=== PATIENT | female | born 1960 | race Caucasian/White ===

== ENCOUNTER → 2017-12-02 | Outpatient (CLI) | payer MEDICARE, OTHER ==
[~2017-12-02] MED LIST: AMLO5 PO; ANTIBIOTIC; Amlodipine Bes2.5 MG PO; CARV6.25 PO; CEPH500 PO; CHOL10002; CLOT10 SUSW; Carvedilol12.5 MG PO; DOCSEN PO; FAMO20 PO; FLUC200 PO; FOLI1 PO; HYDACE5325 PO; HYDR1TAB94 PO; IBUP600 PO; LEVSOD125 PO; LEVSOD150 PO; LIDO2L MM; MULVITMIND PO; MULVITMINE PO; MUPI2TO TOP; NITR100CA PO; Neurontin 300300 MG PO; Norco 5-325 Ta1 EACH PO; OXYACE5T PO; POTA20PAC; POTCHL20ER PO; SERT50 PO; SULTRIDS PO; SYNTHROID112 MCG PO; [UNRECOGNIZED DRUG - OTHER]
== END | disposition home or self-care (01) ==
LOC: LAB EV 12:13
DX: L08.9 Local infection of the skin and subcutaneous tissue, unspecified (principal)
CPT/HCPCS: 87070; 87077; 87147; 87186; 87205

== ENCOUNTER 2017-12-06 09:07 | Emergency (ER) | payer MEDICARE, OTHER ==
[~2017-12-06] VITALS: Ht 177.8 cm; Wt 67.6 kg
== END 2017-12-06 10:26 | disposition home or self-care (01) ==
LOC: ER 09:07
DX: Z43.1 Encounter for attention to gastrostomy (principal); Z88.1 Allergy status to other antibiotic agents; Z88.6 Allergy status to analgesic agent; Z88.0 Allergy status to penicillin; Z88.5 Allergy status to narcotic agent; Z88.8 Allergy status to other drugs, medicaments and biological substances; Z79.899 Other long term (current) drug therapy
CPT/HCPCS: 43760; 99283

== ENCOUNTER → 2018-03-27 | Outpatient (CLI) | payer MEDICARE, OTHER | LOC: LAB SHORT 11:14 → LAB EV 11:14 | DX: N39.0 Urinary tract infection, site not specified (principal) | CPT/HCPCS: 87077; 87086; 87186 ==

== ENCOUNTER 2019-02-15 09:53 | Emergency (ER) | payer MEDICARE, OTHER ==
[~2019-02-15] VITALS: Ht 177.8 cm; Wt 68.0 kg
[2019-02-15] MEDS ORDERED: LORTAB 10 MG-3473 ML PO (15:11)
== END 2019-02-15 15:30 | disposition home or self-care (01) ==
LOC: ER 09:53
DX: S93.401A Sprain of unspecified ligament of right ankle, initial encounter (principal); K94.23 Gastrostomy malfunction; Z88.1 Allergy status to other antibiotic agents; Z88.6 Allergy status to analgesic agent; Z88.0 Allergy status to penicillin; Z88.5 Allergy status to narcotic agent; Z88.8 Allergy status to other drugs, medicaments and biological substances; Z79.899 Other long term (current) drug therapy; Z85.41 Personal history of malignant neoplasm of cervix uteri; Z85.850 Personal history of malignant neoplasm of thyroid; Z87.891 Personal history of nicotine dependence; X58.XXXA Exposure to other specified factors, initial encounter
CPT/HCPCS: 29515; 49465; 73610; 99283-25; A9270-GY; L1906; Q9963

== ENCOUNTER → 2019-08-20 | Outpatient (CLI) | payer MEDICARE, OTHER ==
[~2019-08-20] MED LIST changes: +LORTAB 10 MG-3473 ML PO; +Macrobid 100 M100 MG PO; +PARO2SU; +Sulfamethoxazo1 EAC4 PO
[2019-08-20 11:51] LABS: Source, Urine Clean Catch
[2019-08-20 12:57] LABS: Bacteria Few /hpf; Mucus Mod (0-Heavy); Red Blood Cells, Urine 25-50 /hpf (0-2); Squamous Epithelial Cells Many /hpf (Few)
== END ==
LOC: LAB SHORT 11:50 → LAB EV 11:50
PROVIDERS: Student in an Organized Health Care Education/Training Program
DX: R31.21 Asymptomatic microscopic hematuria (principal)
CPT/HCPCS: 81015

== ENCOUNTER → 2019-09-18 | Outpatient (CLI) | payer MEDICARE, OTHER | END | disposition home or self-care (01) | LOC: LAB SHORT 10:51 → LAB EV 10:51 | DX: N39.0 Urinary tract infection, site not specified (principal) | CPT/HCPCS: 87086 ==

== ENCOUNTER 2019-09-25 09:39 | Emergency (ER) | payer MEDICARE, OTHER ==
[~2019-09-25] VITALS: Ht 177.8 cm; Wt 69.4 kg
[~2019-09-25 09:39] MED LIST changes: -Macrobid 100 M100 MG PO; -PARO2SU; -Sulfamethoxazo1 EAC4 PO
[2019-09-25] MEDS ORDERED: PARO2SU (09:56)
== END 2019-09-25 12:12 | disposition home or self-care (01) ==
LOC: ER 09:39
DX: K94.23 Gastrostomy malfunction (principal); Z88.1 Allergy status to other antibiotic agents; Z88.6 Allergy status to analgesic agent; Z88.8 Allergy status to other drugs, medicaments and biological substances; Z88.0 Allergy status to penicillin; Z88.5 Allergy status to narcotic agent; Z79.899 Other long term (current) drug therapy
CPT/HCPCS: 43762; 49465; 99283-25; Q9963

== ENCOUNTER → 2019-10-02 | Outpatient (CLI) | payer MEDICARE, OTHER ==
[~2019-10-02] MED LIST changes: +Macrobid 100 M100 MG PO; +PARO2SU; +Sulfamethoxazo1 EAC4 PO
[2019-10-04 14:07] LABS: HPV 16 Negative (Negative); HPV 18 Negative (Negative); HPV OTHER HR TYPES Negative (Negative)
== END ==
LOC: LAB 16:35 → LAB SHORT 16:35
PROVIDERS: Student in an Organized Health Care Education/Training Program
DX: Z01.419 Encounter for gynecological examination (general) (routine) without abnormal findings (principal)
CPT/HCPCS: 87624; G0145

== ENCOUNTER 2019-10-08 09:37 | Emergency (ER) | payer MEDICARE, OTHER ==
[~2019-10-08] VITALS: Ht 177.8 cm; Wt 68.0 kg
[~2019-10-08 09:37] MED LIST changes: -Macrobid 100 M100 MG PO; -Sulfamethoxazo1 EAC4 PO
[2019-10-08] MEDS ORDERED: Sulfamethoxazo1 EAC4 PO (10:09)
[2019-10-08] MEDS ORDERED: Macrobid 100 M100 MG PO (10:23)
== END 2019-10-08 10:57 | disposition home or self-care (01) ==
LOC: ER 09:37
DX: N39.0 Urinary tract infection, site not specified (principal); Z16.29 Resistance to other single specified antibiotic; Z88.1 Allergy status to other antibiotic agents; Z88.6 Allergy status to analgesic agent; Z88.8 Allergy status to other drugs, medicaments and biological substances; Z88.0 Allergy status to penicillin; Z88.5 Allergy status to narcotic agent; Z79.899 Other long term (current) drug therapy; Z86.73 Personal history of transient ischemic attack (TIA), and cerebral infarction without residual deficits; Z87.891 Personal history of nicotine dependence
CPT/HCPCS: 99282

== ENCOUNTER → 2019-10-11 | Outpatient (CLI) | payer MEDICARE, OTHER ==
[~2019-10-11] MED LIST changes: +Macrobid 100 M100 MG PO; +Sulfamethoxazo1 EAC4 PO
== END | disposition home or self-care (01) ==
LOC: LAB SHORT 11:50 → LAB EV 11:50
DX: N39.0 Urinary tract infection, site not specified (principal)
CPT/HCPCS: 87077; 87086; 87186

== ENCOUNTER 2019-11-20 10:37 | Emergency (ER) | payer MEDICARE, OTHER ==
[~2019-11-20] VITALS: Ht 177.8 cm; Wt 68.0 kg
[2019-11-20] MEDS ORDERED: OXYB5 PO (11:36)
[2019-11-20] MEDS ORDERED: CONEST.625 (11:37)
[2019-11-20] MEDS ORDERED: POTA10T (11:37)
== END 2019-11-20 14:57 | disposition home or self-care (01) ==
LOC: ER 10:37
DX: R10.9 Unspecified abdominal pain (principal); Z88.0 Allergy status to penicillin; Z88.5 Allergy status to narcotic agent; Z79.899 Other long term (current) drug therapy; Z87.891 Personal history of nicotine dependence
CPT/HCPCS: 49465; Q9963

== ENCOUNTER 2020-02-07 14:20 | Emergency (ER) | payer MEDICARE, OTHER ==
[~2020-02-07] VITALS: Ht 177.8 cm; Wt 68.0 kg
[~2020-02-07 14:20] MED LIST changes: +CONEST.625; +OXYB5 PO; +POTA10T
== END 2020-02-07 17:44 | disposition home or self-care (01) ==
LOC: ER 14:20
DX: Z43.1 Encounter for attention to gastrostomy (principal); M79.7 Fibromyalgia; Z88.0 Allergy status to penicillin; Z88.1 Allergy status to other antibiotic agents; Z88.6 Allergy status to analgesic agent; Z88.5 Allergy status to narcotic agent; Z88.8 Allergy status to other drugs, medicaments and biological substances; Z79.899 Other long term (current) drug therapy
CPT/HCPCS: 43762; 74018; 99283-25

== ENCOUNTER 2020-02-08 09:46 | Emergency (ER) | payer MEDICARE, OTHER ==
[~2020-02-08] VITALS: Ht 177.8 cm; Wt 68.0 kg
== END 2020-02-08 11:54 | disposition home or self-care (01) ==
LOC: ER 09:46
DX: Z43.1 Encounter for attention to gastrostomy (principal); Z88.0 Allergy status to penicillin; Z88.1 Allergy status to other antibiotic agents; Z88.6 Allergy status to analgesic agent; Z88.5 Allergy status to narcotic agent; Z88.8 Allergy status to other drugs, medicaments and biological substances; Z79.899 Other long term (current) drug therapy; Z87.891 Personal history of nicotine dependence; Z93.1 Gastrostomy status
CPT/HCPCS: 43762; 49465; 99283-25; Q9963

== ENCOUNTER 2020-02-15 09:35 | Observation (INO) | payer MEDICARE, OTHER ==
[~2020-02-15] VITALS: Ht 177.8 cm; Wt 68.0 kg
[~2020-02-15 09:35] MED LIST changes: +LEVSOD150 PT; -OXYB5 PO; +OXYB5 PT
[2020-02-15] MEDS ORDERED: POTA20PAC PT (11:47)
[2020-02-15 12:06] LABS: BASOPHILS ABSOLUTE AUTO 0.01 K/mm3 (0.00-0.23); BASOPHILS PERCENT AUTO 0 % (0-2); EOSINOPHILS ABSOLUTE AUTO 0.06 K/mm3 (0.00-0.68); EOSINOPHILS PERCENT AUTO 1 % (0-6); Hematocrit 43.6 % (33.0-51.0); Hemoglobin 14.2 g/dL (11.5-16.0); IMMATURE GRAN ABSOLUTE AUTO 0.01 K/mm3 (0.00-0.10); IMMATURE GRAN PERCENT AUTO 0 % (0-1); LYMPHOCYTES PERCENT AUTO 37 % (21-46); MONOCYTES ABSOLUTE AUTO 0.42 K/mm3 (0.16-1.47); MONOCYTES PERCENT AUTO 9 % (4-13); Mean Corpuscular HGB 29.4 pg (26.0-34.0); Mean Corpuscular HGB Conc 32.6 g/dL (31.5-36.5); Mean Corpuscular Volume 90 fL (80-100); Mean Platelet Volume 11.5 fL (9.1-12.4); NEUTROPHILS ABSOLUTE AUTO 2.36 K/mm3 (1.96-9.15); NEUTROPHILS PERCENT AUTO 52 % (41-73); Platelet Count 158 K/mm3 (150-400); RDW Coefficient Variation 12.7 % (11.7-14.2); RDW Standard Deviation 41.1 fL (35.1-46.3); Red Blood Cell Count 4.83 M/mm3 (3.80-5.20); White Blood Cell Count 4.56 K/mm3 (4.00-11.30)
[2020-02-15] MEDS ORDERED: PARO2SU PT (12:19)
[2020-02-15 12:21] LABS: Anion Gap 6 mmol/L (6-16); Blood Urea Nitrogen 14 mg/dL (8-24); Bun/Creatinine Ratio 21.1 (12.0-20.0); CO2, Blood 27 mmol/L (21-32); Calcium, Blood 8.5 mg/dL (8.5-10.1); Chloride, Blood 107 mmol/L (98-108); Creatinine, Blood 0.67 mg/dL (0.40-1.00); Glomerular Filtration Rate >60 (60-); Glucose, Blood 78 mg/dL (70-99); Sodium, Blood 140 mmol/L (136-145)
[2020-02-15 12:51] LABS: International Normalized Ratio 1.01; Prothrombin Time Results 10.8 Sec (9.7-11.5)
--- NOTE | 2020-02-15 15:00 | NUR ---
1405 arrived to room PT COOPERATIVE, FOLLOWS DIRECTIONS, ORIENTED TO PERSON ONLY. ANSWERSMOST QUESTIONS WITH "YES" OR "OK". STOOD TO TRANSFERFROM GURNEY TO BED AND STEADY ON FEET. PT UNABLE TO PROVIDE ADMISSION HISTORY, SIGN BLOOD CONSENT, TELL ME HER ALLERGIES OR MEDICATIONS. BED ALARM ACTIVATED, PT HOLDING CALL LIGHT AND WATCHING TV
--- NOTE | 2020-02-15 15:45 | NUR ---
TO DAY SURGERY PER CART. DAY SURGERY HENRY GALE IS AWARE OF PATIENTS TBI AND THAT PATIENT DOES NOT HAVE SIGNED BLOOD CONSENT OR SURGICAL CONSENT
--- NOTE | 2020-02-15 16:02 | NUR ---
PT TRANSFERED TO [facility]IA [facility]. History, Chart, Medications and Allergies reviewed before start of procedure. Lungs clear T/O to Auscultation. Patient confirms NPO status and agrees with scheduled surgery.
--- NOTE | 2020-02-15 16:29 | NUR ---
02/15/20 1629 MAMIE CASTELLANO History, Chart, Medications and Allergies reviewed before start of procedure. 3-LEAD EKG REVIEWED WITH PHYSICIAN PRIOR TO START OF PROCEDURE. O2 VIA N/C INTACT THROUGHOUT SEDATION/PROCEDURE. MONITOR INTACT WITH CONTINUOUS PULSE OXIMETRY AND INTERMITTENT BP. MAC WITH DR. QUAN.
--- NOTE | 2020-02-15 17:08 | NUR ---
RETURN TO ROOM. PT SLEEPY AWAKENS WHEN TALKED TO, ANSWERING QUESTIONS WITH A FEW WORD RESPONSE. PT GRIMACING WHEN MOVED OR COUGHED. G TUBE IN PLACE TO LUQ WITH GAUZE DRESSING DRY AND INTACT
--- NOTE | 2020-02-15 18:03 | NUR ---
SUMMARY PT RESTING IN BED SINCE RETURN TO ROOM, CALM AND COOPERATIVE. G TUBE IN PLACE WITH DRESSING DRY AND INTACT. PT INCONTINENT OF URINE THOUGH HAD DENIED NEED TO USE RESTROOM.
--- NOTE | 2020-02-16 06:27 | NUR ---
SHIFT SUMMARY PT HAS BEEN ALERT WHILE AWAKE AND RESPONDS TO VERBAL STIMULI. RESPONDS TO YES/NO QUESTIONS BUT HAS DIFFICULTY COMMUNICATING/SPEAKING. PT WAS MEDICATED FOR PAIN DURING THE NIGHT AND TOLERATED WELL. PT HAS BEEN REPOSITIONED AND HAD ATTENS CHANGED PRN. NO ACUTE CHANGES OVERNIGHT. WCTM.
[2020-02-16] MEDS ORDERED: Macrodantin50 MG PO (10:57)
[2020-02-16] MEDS ORDERED: PREMARIN TOP (11:02)
--- NOTE | 2020-02-16 12:16 | NUR ---
PLAN FOR PT TO DISCHARGE HOME TODAY IF OK WITH DR. SAM. PT'S CONTACTED REGARDING HOME NUTRITION ROUTINE. HE REPORTS PT USES JEVITY 2 AT HOME. SHE HAS 2 CONTAINTERS OF JEVITY 2 IN THE MORNING AND 1 IN THE EVENING. HE ALSO REPORTS SHE HAS 2 [place] PUMP BAGS OF WATER PER DAY, ONE IN THE MORNING AND ONE IN THE EVENING.
--- NOTE | 2020-02-16 16:12 | NUR ---
DISCHARGE PT AND HER WERE PROVIDED WITH WRITTEN AND VERBAL DISCHARGE INSTRUCTIONS, THEY REPORTED UNDERSTANDING. SCANT BLEEDING PRESENT AROUND PEG TUBE PLACEMENT SITE, DR SAM AWARE AND VERBALIZED OK WITH DISCHARGE. PT HAD DISCOMFORT AT TIME OF DISCHARGE BUT DECLINED NEED FOR PAIN MEDICATION. PT WAS ABLE TO TOLERATE 1/2 OF HER ROUTINE MORNING FEEDING WITHOUT NAUSEA OR DIFFICULTY. PT ESCORTED OUT IN W/C AND ASSISTED INTO THE TRUCK WITH HER . PT'S SIGNED HER DISCHARGE FORMS. EDUCATED TO CALL IF THEY HAD ANY CONCERNS.
== END 2020-02-16 15:00 | disposition home or self-care (01) ==
LOC: ER 09:35 → SURS 09:36
PROVIDERS: Emergency Medicine; ADMIT Internal Medicine Gastroenterology
DX: E46 Unspecified protein-calorie malnutrition (principal); I10 Essential (primary) hypertension; F41.9 Anxiety disorder, unspecified; F32.9 Major depressive disorder, single episode, unspecified; Z88.6 Allergy status to analgesic agent; Z88.5 Allergy status to narcotic agent; Z88.8 Allergy status to other drugs, medicaments and biological substances; Z88.1 Allergy status to other antibiotic agents; Z86.73 Personal history of transient ischemic attack (TIA), and cerebral infarction without residual deficits; Z79.899 Other long term (current) drug therapy
CPT/HCPCS: 36415; 43762; 80048; 85025; 85610; 85730; 96360-59; 96361; 96361-59; 96374; 96376; 99284-25; C1769; G0378; J2250; J2704; J3010; J3480; J7120

== ENCOUNTER → 2020-07-31 | Outpatient (CLI) | payer MEDICARE, OTHER ==
[~2020-07-31] MED LIST changes: +Macrodantin50 MG PO; +PARO2SU PT; +POTA20PAC PT; +PREMARIN TOP; +Toprol Xl25 MG PO
== END | disposition home or self-care (01) ==
LOC: LAB EV 15:25 → LAB SHORT 15:25
DX: R30.0 Dysuria (principal)
CPT/HCPCS: 87077; 87086; 87186

== ENCOUNTER 2020-08-26 05:15 | Emergency (ER) | payer MEDICARE, OTHER ==
[~2020-08-26] VITALS: Ht 157.5 cm; Wt 63.5 kg
[~2020-08-26 05:15] MED LIST changes: -Toprol Xl25 MG PO
[2020-08-26 05:32] LABS: BASOPHILS ABSOLUTE AUTO 0.02 K/mm3 (0.00-0.23); BASOPHILS PERCENT AUTO 0 % (0-2); EOSINOPHILS ABSOLUTE AUTO 0.04 K/mm3 (0.00-0.68); EOSINOPHILS PERCENT AUTO 1 % (0-6); Hemoglobin 14.6 g/dL (11.5-16.0); IMMATURE GRAN ABSOLUTE AUTO 0.19 K/mm3 (0.00-0.10); IMMATURE GRAN PERCENT AUTO 3 % (0-1); LYMPHOCYTES ABSOLUTE AUTO 2.97 K/mm3 (0.84-5.20); LYMPHOCYTES PERCENT AUTO 48 % (21-46); MONOCYTES ABSOLUTE AUTO 0.41 K/mm3 (0.16-1.47); MONOCYTES PERCENT AUTO 7 % (4-13); Mean Corpuscular HGB 29.6 pg (26.0-34.0); Mean Corpuscular HGB Conc 32.4 g/dL (31.5-36.5); Mean Corpuscular Volume 91 fL (80-100); Mean Platelet Volume 12.6 fL (9.1-12.4); NEUTROPHILS ABSOLUTE AUTO 2.62 K/mm3 (1.96-9.15); NEUTROPHILS PERCENT AUTO 42 % (41-73); Platelet Count 134 K/mm3 (150-400); RDW Coefficient Variation 13.5 % (11.7-14.2); Red Blood Cell Count 4.93 M/mm3 (3.80-5.20); White Blood Cell Count 6.25 K/mm3 (4.00-11.30)
[2020-08-26 05:43] LABS: Source, Urine Catheter
[2020-08-26] MEDS ORDERED: HYDR1TAB94 PO (05:43)
[2020-08-26 05:48] LABS: Appearance, Urine Hazy (Clear); Bilirubin, Urine Neg (Neg); Blood, Urine 5+ (Neg); Color, Urine Yellow (P-Yellow); Glucose Qualitative, Urine Neg (Neg); Ketones, Urine 1+ (Neg); Leukocyte Esterase, Urine 1+ (Neg); Nitrite, Urine Neg (Neg); Protein, Urine 3+ (Neg); Urobilinogen, Urine 1+ (Normal)
[2020-08-26 05:52] LABS: Alanine Aminotransfer (ALT/SGP 62 U/L (12-78); Albumin, Blood 3.6 g/dL (3.4-5.0); Albumin/Globulin Ratio 0.8 (0.8-1.8); Alk Phos 84 U/L (50-136); Anion Gap 10 mmol/L (6-16); Aspartate Aminotrans (AST/SGOT 54 U/L (12-37); Bilirubin, Total 0.5 mg/dL (0.1-1.0); Blood Urea Nitrogen 33 mg/dL (8-24); Bun/Creatinine Ratio 46.2 (12.0-20.0); CO2, Blood 26 mmol/L (21-32); Calcium, Blood 9.4 mg/dL (8.5-10.1); Chloride, Blood 108 mmol/L (98-108); Creatinine, Blood 0.71 mg/dL (0.40-1.00); Globulin, Blood 4.5 g/dL (2.2-4.0); Glomerular Filtration Rate >60 (60-); Glucose, Blood 111 mg/dL (70-99); Magnesium, Blood 2.3 mg/dL (1.6-2.4); Potassium, Blood 3.6 mmol/L (3.5-5.5); Sodium, Blood 144 mmol/L (136-145); Total Protein, Blood 8.1 g/dL (6.4-8.2)
[2020-08-26 05:59] LABS: Bacteria Few /hpf; Hyaline Casts 0-2 /lpf (0-2); Squamous Epithelial Cells Few /hpf (Few)
[2020-08-26 06:06] LABS: U Amphetamine Screen Not Detected; U Barbituate Screen Not Detected; U Benzodiazapine Screen Not Detected; U Buprenorphine Screen Not Detected; U Cannabinoids Screen Not Detected; U Cocaine Screen Not Detected; U Methadone Screen Not Detected; U Methamphetamine Screen Not Detected; U Opiates Screen DETECTED; U Oxycodone Screen Not Detected; U Phencyclidine Screen Not Detected; U Propoxyphene Screen Not Detected
[2020-08-26 06:35] LABS: Influenza A, PCR Negative (NEGATIVE); Influenza B, PCR Negative (NEGATIVE); Resp Syncytial Virus, PCR Negative (NEGATIVE); SARS-Cov-2 (COVID-19) PCR, MMC Negative (NEGATIVE)
[2020-08-26 06:38] LABS: Troponin I <0.015 ng/mL (0.000-0.040)
[2020-08-26 06:41] LABS: Thyroid Stimulating Hormone 0.041 uIU/mL (0.360-4.800)
[2020-08-26] MEDS ORDERED: Toprol Xl25 MG PO (09:44)
== END 2020-08-26 11:03 | disposition home or self-care (01) ==
LOC: ER 05:15
PROVIDERS: Emergency Medicine
DX: R56.9 Unspecified convulsions (principal); R10.13 Epigastric pain; Z87.820 Personal history of traumatic brain injury; Z88.0 Allergy status to penicillin; Z88.5 Allergy status to narcotic agent; Z88.8 Allergy status to other drugs, medicaments and biological substances; Z88.6 Allergy status to analgesic agent; Z79.899 Other long term (current) drug therapy; Z87.891 Personal history of nicotine dependence
CPT/HCPCS: 0241U; 36415; 70450; 71045; 80053; 81001; 83735; 84443; 84484; 85025; 87086; 93005; 93010; 96374; 96375; 99285-25; J7030; P9612

== ENCOUNTER 2020-08-29 14:54 | Emergency (ER) | payer MEDICARE, OTHER ==
[~2020-08-29] VITALS: Ht 167.6 cm; Wt 65.8 kg
[~2020-08-29 14:54] MED LIST changes: +Toprol Xl25 MG PO
[2020-08-29 16:50] LABS: Alanine Aminotransfer (ALT/SGP 57 U/L (12-78); Albumin, Blood 3.8 g/dL (3.4-5.0); Albumin/Globulin Ratio 0.8 (0.8-1.8); Alk Phos 77 U/L (50-136); Anion Gap 6 mmol/L (6-16); Aspartate Aminotrans (AST/SGOT 45 U/L (12-37); Bilirubin, Total 0.6 mg/dL (0.1-1.0); Blood Urea Nitrogen 19 mg/dL (8-24); Bun/Creatinine Ratio 29.4 (12.0-20.0); CO2, Blood 32 mmol/L (21-32); Calcium, Blood 9.8 mg/dL (8.5-10.1); Chloride, Blood 103 mmol/L (98-108); Creatinine, Blood 0.65 mg/dL (0.40-1.00); Globulin, Blood 4.9 g/dL (2.2-4.0); Glomerular Filtration Rate >60 (60-); Glucose, Blood 105 mg/dL (70-99); Potassium, Blood 3.9 mmol/L (3.5-5.5); Sodium, Blood 141 mmol/L (136-145); Total Protein, Blood 8.7 g/dL (6.4-8.2)
[2020-08-29 17:10] LABS: BASOPHILS ABSOLUTE AUTO 0.01 K/mm3 (0.00-0.23); BASOPHILS PERCENT AUTO 0 % (0-2); EOSINOPHILS ABSOLUTE AUTO 0.02 K/mm3 (0.00-0.68); EOSINOPHILS PERCENT AUTO 0 % (0-6); Hematocrit 38.2 % (33.0-51.0); Hemoglobin 12.5 g/dL (11.5-16.0); IMMATURE GRAN ABSOLUTE AUTO 0.01 K/mm3 (0.00-0.10); IMMATURE GRAN PERCENT AUTO 0 % (0-1); LYMPHOCYTES ABSOLUTE AUTO 0.98 K/mm3 (0.84-5.20); LYMPHOCYTES PERCENT AUTO 17 % (21-46); MONOCYTES ABSOLUTE AUTO 0.55 K/mm3 (0.16-1.47); MONOCYTES PERCENT AUTO 9 % (4-13); Mean Corpuscular HGB 29.5 pg (26.0-34.0); Mean Corpuscular HGB Conc 32.7 g/dL (31.5-36.5); Mean Corpuscular Volume 90 fL (80-100); Mean Platelet Volume 12.7 fL (9.1-12.4); NEUTROPHILS ABSOLUTE AUTO 4.37 K/mm3 (1.96-9.15); NEUTROPHILS PERCENT AUTO 74 % (41-73); Platelet Count 104 K/mm3 (150-400); RDW Coefficient Variation 13.7 % (11.7-14.2); RDW Standard Deviation 44.3 fL (35.1-46.3); Red Blood Cell Count 4.24 M/mm3 (3.80-5.20); White Blood Cell Count 5.94 K/mm3 (4.00-11.30)
== END 2020-08-29 20:21 | disposition home or self-care (01) ==
LOC: ER 14:54
PROVIDERS: Physician Assistant
DX: R10.11 Right upper quadrant pain (principal); Z88.6 Allergy status to analgesic agent; Z88.1 Allergy status to other antibiotic agents; Z88.0 Allergy status to penicillin; Z88.5 Allergy status to narcotic agent; Z88.8 Allergy status to other drugs, medicaments and biological substances; Z79.899 Other long term (current) drug therapy; Z87.891 Personal history of nicotine dependence
CPT/HCPCS: 36415; 74177; 80053; 85025; 96374; 99284-25; J2405; Q9967

== ENCOUNTER → 2020-09-16 | Outpatient (CLI) | payer MEDICARE, OTHER ==
[~2020-09-16] MED LIST changes: +CONSTULOSE10 GM/155 PO; +CYCLOBENZAPRINE5 MG PO; +KEPPRA250 M1 PO; +LEVE500 PO; +LEVETIRACETAM PO; -LEVSOD150 PT; +LISINOPRIL2.5 MG PO; +METO25 PO; +METOPROLOL SUCC25 MG PO; +MIRALAX17 GM PO; +Mirtazapine15 M1 SL; +OXYB5 PO; +OXYC10TA19 PO; +POTA10T PO; +POTA20LUD PO; +TAMSULOSIN HCL0.4 M1 PO
== END | disposition home or self-care (01) ==
LOC: PLD 07:47 → LAB SHORT 07:47
DX: D22.5 Melanocytic nevi of trunk (principal)
CPT/HCPCS: 88305

== ENCOUNTER → 2020-10-09 | Outpatient (CLI) | payer MEDICARE, OTHER ==
[2020-10-09 15:58] LABS: Source, Urine Clean Catch
[2020-10-09 16:44] LABS: Appearance, Urine Clear (Clear); Blood, Urine Neg (Neg); Color, Urine Amber (P-Yellow); Glucose Qualitative, Urine Neg (Neg); Ketones, Urine 1+ (Neg); Leukocyte Esterase, Urine 1+ (Neg); Nitrite, Urine Neg (Neg); Protein, Urine 1+ (Neg); Specific Gravity, Urine 1.025 (1.003-1.022); Urobilinogen, Urine 2+ (Normal)
[2020-10-09 16:54] LABS: Bilirubin, Urine 1+ (Neg)
[2020-10-09 16:55] LABS: Bacteria Mod /hpf; Mucus Heavy (0-Heavy); Red Blood Cells, Urine 0-2 /hpf (0-2); Squamous Epithelial Cells Many /hpf (Few)
== END | disposition home or self-care (01) ==
LOC: PLD 15:54 → LAB SHORT 15:54
PROVIDERS: Student in an Organized Health Care Education/Training Program
DX: R30.9 Painful micturition, unspecified (principal)
CPT/HCPCS: 81001; 87086

== ENCOUNTER 2020-10-31 22:58 | Emergency (ER) | payer MEDICARE, OTHER ==
[~2020-10-31] VITALS: Ht 167.6 cm; Wt 68.0 kg
[~2020-10-31 22:58] MED LIST changes: -CONSTULOSE10 GM/155 PO; -CYCLOBENZAPRINE5 MG PO; -KEPPRA250 M1 PO; -LEVE500 PO; -LEVETIRACETAM PO; -LISINOPRIL2.5 MG PO; -METO25 PO; -METOPROLOL SUCC25 MG PO; -MIRALAX17 GM PO; -Mirtazapine15 M1 SL; -OXYB5 PO; -OXYC10TA19 PO; -POTA10T PO; -POTA20LUD PO; -TAMSULOSIN HCL0.4 M1 PO
[2020-10-31 23:42] LABS: BASOPHILS ABSOLUTE AUTO 0.01 K/mm3 (0.00-0.23); BASOPHILS PERCENT AUTO 0 % (0-2); EOSINOPHILS ABSOLUTE AUTO 0.04 K/mm3 (0.00-0.68); EOSINOPHILS PERCENT AUTO 1 % (0-6); Hematocrit 38.9 % (33.0-51.0); Hemoglobin 12.9 g/dL (11.5-16.0); IMMATURE GRAN ABSOLUTE AUTO 0.02 K/mm3 (0.00-0.10); IMMATURE GRAN PERCENT AUTO 0 % (0-1); LYMPHOCYTES ABSOLUTE AUTO 0.81 K/mm3 (0.84-5.20); LYMPHOCYTES PERCENT AUTO 10 % (21-46); MONOCYTES ABSOLUTE AUTO 0.65 K/mm3 (0.16-1.47); MONOCYTES PERCENT AUTO 8 % (4-13); Mean Corpuscular HGB 28.9 pg (26.0-34.0); Mean Corpuscular HGB Conc 33.2 g/dL (31.5-36.5); Mean Corpuscular Volume 87 fL (80-100); Mean Platelet Volume 11.4 fL (9.1-12.4); NEUTROPHILS ABSOLUTE AUTO 6.42 K/mm3 (1.96-9.15); NEUTROPHILS PERCENT AUTO 81 % (41-73); Platelet Count 182 K/mm3 (150-400); RDW Coefficient Variation 13.3 % (11.7-14.2); RDW Standard Deviation 41.3 fL (35.1-46.3); Red Blood Cell Count 4.46 M/mm3 (3.80-5.20); White Blood Cell Count 7.95 K/mm3 (4.00-11.30)
[2020-10-31 23:56] LABS: Alanine Aminotransfer (ALT/SGP 43 U/L (12-78); Albumin, Blood 2.9 g/dL (3.4-5.0); Albumin/Globulin Ratio 0.7 (0.8-1.8); Alk Phos 68 U/L (50-136); Anion Gap 7 mmol/L (6-16); Aspartate Aminotrans (AST/SGOT 44 U/L (12-37); Bilirubin, Total 0.6 mg/dL (0.1-1.0); Blood Urea Nitrogen 20 mg/dL (8-24); Bun/Creatinine Ratio 35.2 (12.0-20.0); CO2, Blood 24 mmol/L (21-32); Calcium, Blood 8.5 mg/dL (8.5-10.1); Chloride, Blood 113 mmol/L (98-108); Creatinine, Blood 0.57 mg/dL (0.40-1.00); Glomerular Filtration Rate >60 (60-); Glucose, Blood 83 mg/dL (70-99); Magnesium, Blood 1.7 mg/dL (1.6-2.4); Potassium, Blood 3.8 mmol/L (3.5-5.5); Sodium, Blood 144 mmol/L (136-145); Total Protein, Blood 6.9 g/dL (6.4-8.2); Troponin I <0.015 ng/mL (0.000-0.040)
[2020-11-01] MEDS ORDERED: LEVE500 PO (00:22)
== END 2020-11-01 02:28 | disposition home or self-care (01) ==
LOC: ER 22:58
PROVIDERS: Emergency Medicine
DX: R56.9 Unspecified convulsions (principal); I10 Essential (primary) hypertension; Z79.899 Other long term (current) drug therapy; Z87.828 Personal history of other (healed) physical injury and trauma; Z88.1 Allergy status to other antibiotic agents; Z88.6 Allergy status to analgesic agent; Z88.0 Allergy status to penicillin; Z88.5 Allergy status to narcotic agent; Z87.891 Personal history of nicotine dependence
CPT/HCPCS: 36415; 80053; 83735; 84484; 85025; 93005; 93010; 96374; 96375; 99284-25; J1953; J2060

== ENCOUNTER 2020-11-01 13:13 | Inpatient (IN) | payer MEDICARE, OTHER ==
[~2020-11-01] VITALS: Ht 162.6 cm; Wt 65.1 kg
[~2020-11-01 13:13] MED LIST changes: +LEVE500 PO
[2020-11-01 20:41] LABS: Albumin, Blood 2.9 g/dL (3.4-5.0); Anion Gap 6 mmol/L (6-16); Blood Urea Nitrogen 16 mg/dL (8-24); CO2, Blood 28 mmol/L (21-32); Calcium, Blood 9.2 mg/dL (8.5-10.1); Chloride, Blood 110 mmol/L (98-108); Creatinine, Blood 0.57 mg/dL (0.40-1.00); Glomerular Filtration Rate >60 (60-); Glucose, Blood 82 mg/dL (70-99); Phosphorus, Blood 4.1 mg/dL (2.5-4.9); Potassium, Blood 4.1 mmol/L (3.5-5.5); Sodium, Blood 144 mmol/L (136-145)
[2020-11-01 20:54] LABS: BASOPHILS ABSOLUTE AUTO 0.01 K/mm3 (0.00-0.23); BASOPHILS PERCENT AUTO 0 % (0-2); EOSINOPHILS ABSOLUTE AUTO 0.01 K/mm3 (0.00-0.68); EOSINOPHILS PERCENT AUTO 0 % (0-6); Hematocrit 37.5 % (33.0-51.0); Hemoglobin 12.2 g/dL (11.5-16.0); IMMATURE GRAN ABSOLUTE AUTO 0.01 K/mm3 (0.00-0.10); IMMATURE GRAN PERCENT AUTO 0 % (0-1); LYMPHOCYTES ABSOLUTE AUTO 0.72 K/mm3 (0.84-5.20); LYMPHOCYTES PERCENT AUTO 16 % (21-46); MONOCYTES ABSOLUTE AUTO 0.29 K/mm3 (0.16-1.47); MONOCYTES PERCENT AUTO 6 % (4-13); Mean Corpuscular HGB 28.8 pg (26.0-34.0); Mean Corpuscular HGB Conc 32.5 g/dL (31.5-36.5); Mean Corpuscular Volume 88 fL (80-100); Mean Platelet Volume 11.6 fL (9.1-12.4); NEUTROPHILS ABSOLUTE AUTO 3.57 K/mm3 (1.96-9.15); NEUTROPHILS PERCENT AUTO 78 % (41-73); Platelet Count 170 K/mm3 (150-400); RDW Coefficient Variation 13.6 % (11.7-14.2); RDW Standard Deviation 43.2 fL (35.1-46.3); Red Blood Cell Count 4.24 M/mm3 (3.80-5.20); White Blood Cell Count 4.61 K/mm3 (4.00-11.30)
--- NOTE | 2020-11-02 04:52 | NUR ---
SHIFT SUMMARY PT ER ADMIT THIS SHIFT FOR SEIZURE, POST GROUND LEVEL FALL AT HOME. PT SUSTAINED BRUISED RIBS A RESULT. MEDICATED FOR PAIN PRN PER ORDERS. PT HAS HX OF SEIZURE DISORDER. PT RECEIVED IV KEPPRA IN THE ER, AND IS TO RESUME BID DOSING VIA IV TODAY PER DR. REID. PT HAS HX OF TBI, AND IS SLOW TO RESPOND, NODS YES OR NO TO MOST QUESTIONS BUT DOES NOT VERBALLY ANSWER MY QUESTIONS. DIFFICULT TO DETERMINE THE FULL DEGREE OF PT ORIENTATION. PT VITALS ARE STABLE. NO SEIZURE ACTIVITY SEEN SINCE ADMISSION. SEIZURE PRECAUTIONS IN PLACE. ADMISSION COMPLETE. BED IN LOWEST POSITION, CALL LIGHT WITHIN REACH.
--- NOTE | 2020-11-02 18:12 | NUR ---
SHIFT SUMMARY PT IS AO TO SELF. PT DENIES N/V, SOB. PT C/O ABD PAIN AND CRIED T/O SHIFT. PT MEDICATED FOR PAIN X2 AND IS CURRENTLY SLEEPING. PT DIET CHANGED TO TUBE FEEDINGS TODAY PER HOME ROUTINE. PT HAD CT AND MRI TODAY. SO FAR PT IS TOLERATING TUBE FEEDINGS. PT IS CURRENTLY ON BEDREST, HOME AMBULATION STATUS IS UNKNOWN TO ME. PT'S VISITED THIS OWEN. PT IS IN BED, SLEEPING, BED IN LOW POSITION WITH CALL LIGHT IN REACH.
--- NOTE | 2020-11-03 04:24 | NUR ---
SHIFT SUMMARY PT HAS RESTED MOST OF THE NIGHT, MEDICATED FOR RIB PAIN WITH AFFECT. PT ONLY PAINFUL WITH REPOSITIONING, BUT APPEARS COMFORTABLE AT REST. NO SEIZURE ACTIVITY ASSESSED THIS SHIFT. KEPPRA GIVEN PER EMAR ORDERS. SEIZURE PRECAUTIONS IN PLACE. BED IN LOWEST POSITION, CALL LIGHT WITHIN REACH.
[2020-11-03 05:44] LABS: Anion Gap 7 mmol/L (6-16); Blood Urea Nitrogen 12 mg/dL (8-24); Bun/Creatinine Ratio 22.8 (12.0-20.0); CO2, Blood 29 mmol/L (21-32); Calcium, Blood 8.9 mg/dL (8.5-10.1); Chloride, Blood 107 mmol/L (98-108); Creatinine, Blood 0.53 mg/dL (0.40-1.00); Glomerular Filtration Rate >60 (60-); Glucose, Blood 61 mg/dL (70-99); Magnesium, Blood 1.8 mg/dL (1.6-2.4); Phosphorus, Blood 3.8 mg/dL (2.5-4.9); Potassium, Blood 3.1 mmol/L (3.5-5.5); Sodium, Blood 143 mmol/L (136-145)
--- NOTE | 2020-11-03 15:44 | NUR ---
Upon receiving and admit referral for spiritual care, I visit patient. Patient states that she has no restoration beliefs and she does not want prayer. I then attempt to establish therapeutic alliance. Patient seems slow to trust but as I applaud her courage and strength she begins to allow for some deeper but short conversations. I will continue to attempt to communicate in meaningful ways with patient as she does seem to have emotional/spiritual pain.
[2020-11-04 05:30] LABS: BASOPHILS ABSOLUTE AUTO 0.01 K/mm3 (0.00-0.23); BASOPHILS PERCENT AUTO 0 % (0-2); EOSINOPHILS ABSOLUTE AUTO 0.03 K/mm3 (0.00-0.68); EOSINOPHILS PERCENT AUTO 0 % (0-6); Hematocrit 32.9 % (33.0-51.0); Hemoglobin 10.9 g/dL (11.5-16.0); IMMATURE GRAN ABSOLUTE AUTO 0.02 K/mm3 (0.00-0.10); IMMATURE GRAN PERCENT AUTO 0 % (0-1); LYMPHOCYTES ABSOLUTE AUTO 1.09 K/mm3 (0.84-5.20); LYMPHOCYTES PERCENT AUTO 16 % (21-46); MONOCYTES ABSOLUTE AUTO 0.57 K/mm3 (0.16-1.47); MONOCYTES PERCENT AUTO 8 % (4-13); Mean Corpuscular HGB 28.9 pg (26.0-34.0); Mean Corpuscular HGB Conc 33.1 g/dL (31.5-36.5); Mean Corpuscular Volume 87 fL (80-100); Mean Platelet Volume 11.7 fL (9.1-12.4); NEUTROPHILS PERCENT AUTO 75 % (41-73); Platelet Count 148 K/mm3 (150-400); RDW Coefficient Variation 13.8 % (11.7-14.2); RDW Standard Deviation 42.3 fL (35.1-46.3); Red Blood Cell Count 3.77 M/mm3 (3.80-5.20); White Blood Cell Count 6.82 K/mm3 (4.00-11.30)
[2020-11-04 06:04] LABS: Alanine Aminotransfer (ALT/SGP 36 U/L (12-78); Albumin, Blood 2.7 g/dL (3.4-5.0); Albumin/Globulin Ratio 0.7 (0.8-1.8); Alk Phos 63 U/L (50-136); Anion Gap 5 mmol/L (6-16); Aspartate Aminotrans (AST/SGOT 29 U/L (12-37); Bilirubin, Total 0.5 mg/dL (0.1-1.0); Blood Urea Nitrogen 10 mg/dL (8-24); CO2, Blood 32 mmol/L (21-32); Chloride, Blood 106 mmol/L (98-108); Creatinine, Blood 0.59 mg/dL (0.40-1.00); Globulin, Blood 3.8 g/dL (2.2-4.0); Glomerular Filtration Rate >60 (60-); Glucose, Blood 86 mg/dL (70-99); Magnesium, Blood 1.9 mg/dL (1.6-2.4); Phosphorus, Blood 3.1 mg/dL (2.5-4.9); Potassium, Blood 3.2 mmol/L (3.5-5.5); Sodium, Blood 143 mmol/L (136-145); Total Protein, Blood 6.5 g/dL (6.4-8.2)
[2020-11-04] MEDS ORDERED: POTA10T PO (16:11)
[2020-11-04] MEDS ORDERED: KEPPRA250 M1 PO (16:12)
--- NOTE | 2020-11-04 18:10 | NUR ---
DISCHARGE NOTE- PT DISCHARGED HOME WITH HOME HEALTH. PT DAUGHTER PRESENT FOR DISCHARGE AND ACKNOWLEDGED UNDERSTANDING OF THEM. PT MEDICATED FOR PAIN PRIOR TO DISCHARGE. LAST FEEDING WAS COMPLETED WELL. NO HARD COPY SCRIPT WAS PROVIDED THE PT ALREADY HAS THAT PAIN MEDICATION AT HOME. PT WAS ESCORTED OUT VIA WC BY THE VETERINARY X RAY OPERATOR NO FURTHER QUESTIONS AT THE TIME OF DISCHARGE.
--- NOTE | 2020-11-05 09:56 | NUR ---
ADMIT: 11/02/20 DISCHARGE: 11/04/20 DX:Seizure CC: cpeabody DIPAK CALL: , call Vanessa for dipak [phone] RESIDENCE: Home with Spouse CAREGIVER:Lesley GUSTAFSON, Spouse / Partner, Vanessa Mccain, Other / [phone] Leigh Smith, Parent DX: Afib, depressive disorder, HTN, back pain, see list DME: underpants, CCM: none HOME HEALTH: [facility], [facility] , [facility] was contacted. SUMMARY: Discharge 11/04/20 Home with daughter, s/w caregiver vanessa by telephone, agreed to [facility], [facility] was contacted. Discussed DIPAK call from Tue or Tue. Patient needed toilet seat hand rails, not covered by insurance, will self pay. Reviewed home discharge check list. No needs identified. Hand script was not taken by daughter because Pain medication was the same strength and frequency as prescribed by Pain management in [place]. Dr Su was notified and script was torn up. cp 1. Recurrent seizures. We will get a head CT. I will put in for an EEG and MRI for in the morning.
== END 2020-11-04 17:36 | disposition home health service (06) | DRG 100 ==
LOC: ER 13:13 → MEDS 19:27
PROVIDERS: Hospitalist; Internal Medicine; ADMIT Family Medicine
DX: G40.409 Other generalized epilepsy and epileptic syndromes, not intractable, without status epilepticus (principal); G93.41 Metabolic encephalopathy; S22.42XA Multiple fractures of ribs, left side, initial encounter for closed fracture; Z87.820 Personal history of traumatic brain injury; H54.40 Blindness, one eye, unspecified eye; H54.61 Unqualified visual loss, right eye, normal vision left eye; Z87.891 Personal history of nicotine dependence; Y92.002 Bathroom of unspecified non-institutional (private) residence as the place of occurrence of the external cause; W01.198A Fall on same level from slipping, tripping and stumbling with subsequent striking against other object, initial encounter; E03.9 Hypothyroidism, unspecified; G89.4 Chronic pain syndrome; M79.7 Fibromyalgia; E87.6 Hypokalemia; N30.90 Cystitis, unspecified without hematuria
CPT/HCPCS: 36415; 70450; 70551; 71101; 71260; 74177; 80048; 80053; 80069; 83735; 84100; 84484; 85025; 93005; 93010; 95819; 96365-59; 96366; 96372; 96374; 96375; 96375-59; 96376; 97110; 97162; 97165; 97530; 97535; 99284-25; 99285-25; A9270; G0378; J1650; J1953; J2060; J2270; J3010; Q9967

== ENCOUNTER 2020-11-10 10:40 | Observation (INO) | payer MEDICARE, OTHER ==
[~2020-11-10] VITALS: Ht 177.8 cm; Wt 62.9 kg
[~2020-11-10 10:40] MED LIST changes: +KEPPRA250 M1 PO; +POTA10T PO
[2020-11-10] MEDS ORDERED: LISINOPRIL2.5 MG PO (17:48)
[2020-11-10] MEDS ORDERED: OXYB5 PO (17:49)
[2020-11-10] MEDS ORDERED: METOPROLOL SUCC25 MG PO (17:49)
[2020-11-10 19:05] LABS: BASOPHILS ABSOLUTE AUTO 0.01 K/mm3 (0.00-0.23); BASOPHILS PERCENT AUTO 0 % (0-2); EOSINOPHILS ABSOLUTE AUTO 0.03 K/mm3 (0.00-0.68); EOSINOPHILS PERCENT AUTO 1 % (0-6); Hematocrit 37.7 % (33.0-51.0); Hemoglobin 12.1 g/dL (11.5-16.0); IMMATURE GRAN ABSOLUTE AUTO 0.01 K/mm3 (0.00-0.10); IMMATURE GRAN PERCENT AUTO 0 % (0-1); LYMPHOCYTES ABSOLUTE AUTO 0.99 K/mm3 (0.84-5.20); LYMPHOCYTES PERCENT AUTO 29 % (21-46); MONOCYTES ABSOLUTE AUTO 0.24 K/mm3 (0.16-1.47); MONOCYTES PERCENT AUTO 7 % (4-13); Mean Corpuscular HGB 28.9 pg (26.0-34.0); Mean Corpuscular HGB Conc 32.1 g/dL (31.5-36.5); Mean Corpuscular Volume 90 fL (80-100); Mean Platelet Volume 11.3 fL (9.1-12.4); NEUTROPHILS ABSOLUTE AUTO 2.18 K/mm3 (1.96-9.15); NEUTROPHILS PERCENT AUTO 63 % (41-73); Platelet Count 174 K/mm3 (150-400); RDW Coefficient Variation 14.3 % (11.7-14.2); RDW Standard Deviation 45.3 fL (35.1-46.3); Red Blood Cell Count 4.19 M/mm3 (3.80-5.20); White Blood Cell Count 3.46 K/mm3 (4.00-11.30)
[2020-11-10 19:25] LABS: Alanine Aminotransfer (ALT/SGP 108 U/L (12-78); Albumin, Blood 3.3 g/dL (3.4-5.0); Albumin/Globulin Ratio 0.7 (0.8-1.8); Alk Phos 78 U/L (50-136); Anion Gap 5 mmol/L (6-16); Aspartate Aminotrans (AST/SGOT 86 U/L (12-37); Bilirubin, Total 0.5 mg/dL (0.1-1.0); Blood Urea Nitrogen 19 mg/dL (8-24); Bun/Creatinine Ratio 31.5 (12.0-20.0); CO2, Blood 31 mmol/L (21-32); Calcium, Blood 9.8 mg/dL (8.5-10.1); Chloride, Blood 105 mmol/L (98-108); Globulin, Blood 4.6 g/dL (2.2-4.0); Glomerular Filtration Rate >60 (60-); Glucose, Blood 84 mg/dL (70-99); Potassium, Blood 3.8 mmol/L (3.5-5.5); Sodium, Blood 141 mmol/L (136-145); Total Protein, Blood 7.9 g/dL (6.4-8.2)
[2020-11-11 05:22] LABS: Alanine Aminotransfer (ALT/SGP 96 U/L (12-78); Albumin, Blood 2.8 g/dL (3.4-5.0); Albumin/Globulin Ratio 0.7 (0.8-1.8); Alk Phos 68 U/L (50-136); Anion Gap 9 mmol/L (6-16); Aspartate Aminotrans (AST/SGOT 90 U/L (12-37); Bilirubin, Total 0.7 mg/dL (0.1-1.0); Blood Urea Nitrogen 17 mg/dL (8-24); Bun/Creatinine Ratio 32.8 (12.0-20.0); CO2, Blood 25 mmol/L (21-32); Calcium, Blood 9.2 mg/dL (8.5-10.1); Chloride, Blood 109 mmol/L (98-108); Creatinine, Blood 0.52 mg/dL (0.40-1.00); Globulin, Blood 3.9 g/dL (2.2-4.0); Glomerular Filtration Rate >60 (60-); Glucose, Blood 77 mg/dL (70-99); Potassium, Blood 4.1 mmol/L (3.5-5.5); Sodium, Blood 143 mmol/L (136-145); Total Protein, Blood 6.7 g/dL (6.4-8.2)
--- NOTE | 2020-11-11 05:23 | NUR ---
SHIFT SUMMARY- PT. NEW ADMISSION FROM ED WITH MALFUNCTION OF G-TUBE. HX OF TRAUMATIC BRAIN INJURY. A&OX2, UNABLE TO PROVIDE HEALTH HX. PT. BROUGHT IN BY CAREGIVER. C/O ABD PAIN, MEDICATED PER EMAR WITH GOOD EFFECT. RESTED QUIETLY T/O THE NIGHT, NO APPARENT DISTRESS NOTED. INCONT, ATTENDS IN PLACE. PT. NPO, VSS, IV FLUIDS INFUSING. CALL LIGHT WITHIN REACH AND SIDE RAILS UPX2. WILL CONT TO MONITOR.
[2020-11-11 05:27] LABS: BASOPHILS ABSOLUTE AUTO 0.02 K/mm3 (0.00-0.23); BASOPHILS PERCENT AUTO 0 % (0-2); EOSINOPHILS ABSOLUTE AUTO 0.06 K/mm3 (0.00-0.68); EOSINOPHILS PERCENT AUTO 1 % (0-6); Hematocrit 33.6 % (33.0-51.0); Hemoglobin 11.2 g/dL (11.5-16.0); IMMATURE GRAN ABSOLUTE AUTO 0.02 K/mm3 (0.00-0.10); IMMATURE GRAN PERCENT AUTO 0 % (0-1); LYMPHOCYTES PERCENT AUTO 25 % (21-46); MONOCYTES ABSOLUTE AUTO 0.48 K/mm3 (0.16-1.47); MONOCYTES PERCENT AUTO 9 % (4-13); Mean Corpuscular HGB 29.2 pg (26.0-34.0); Mean Corpuscular HGB Conc 33.3 g/dL (31.5-36.5); Mean Corpuscular Volume 88 fL (80-100); NEUTROPHILS ABSOLUTE AUTO 3.37 K/mm3 (1.96-9.15); NEUTROPHILS PERCENT AUTO 64 % (41-73); RDW Standard Deviation 43.4 fL (35.1-46.3); Red Blood Cell Count 3.84 M/mm3 (3.80-5.20); White Blood Cell Count 5.25 K/mm3 (4.00-11.30)
[2020-11-11 05:43] LABS: Mean Platelet Volume 11.2 fL (9.1-12.4)
[2020-11-11 06:40] LABS: Platelet Count 161 K/mm3 (150-400)
--- NOTE | 2020-11-11 18:14 | NUR ---
SHIFT SUMMARY- PT IS ALERT, PLESANT AND COOPERATIVE. SHE IS NPO. SHE IS RECIEVING IV FLUIDS. DR. FLETCHER SAW PT THIS AFTERNOON AND REPLACED HER PEG TUBE, AND SENT TO XRAY TO VERIFY PLACMENT. UPDATED DR. ZAYAS SHE WILL REVIEW AND UPDATE MEDICATIONS. PT IS INC AND HAS REQUIRED ATTENDS CHANGES THIS SHIFT. HER BED IS IN THE LOW POSITION AND CALL LIGHT IS WITHIN REACH
--- NOTE | 2020-11-12 08:30 | NUR ---
Kristel slept intermittantly overnight. No words spoken, just nods yes and no. Peg tube insertion site is clean,dry and intact. 283ml Jevitiy 1.2 and 200ml sterile water were infused without any residuals noted overnight. Patient states she doesn't want pain medication, however she surely appears to be uncomfortable.
--- NOTE | 2020-11-12 17:14 | NUR ---
ADMIT: 11/10/20 DISCHARGE: 11/12/20 DX: malfunction of G-tube CC: cpeabody ADMIT: 11/02/20 DISCHARGE: 11/04/20 DX:SEIZURE CC: CPEABODY DIPAK CALL: , CALL ODALIS FOR DIPAK [phone] RESIDENCE:HOME WITH SPOUSE CAREGIVER:GUERRERO GUSTAFSON, SPOUSE / PARTNER, ODALIS DE LEON, OTHER / [phone] DARLING SANDRA, PARENT DX: Anxiety, Afib, complication of gastrostomy, see list DME:underpads, knee immoblizer, Davol piston irrigation, see list CCM: none HOME HEALTH: [facility] 2020- resume home health 11/12/19 contacted Smitha Zhu. SUMMARY: Admit 11/10/20 11/12/20 Stable for discharge home per Dr Leonard, Kristel had not had a BM for 9 days, bowel protocol was completed. and Caregiver Odalis were both left messages to contact the Hospital for discharge at 5:00 pm I did not get to speak with any family during this visit. Left dipak letter for patient, follow up 1 week dipak. Resumed home health with Audra 11/12/20. cp 1. 60-year-old female with a history of seizures, traumatic brain injury, with a chronic PEG, comes in with a malfunctioning gastrostomy tube. 2. Dehydration. 3. History of thyroid cancer, uterine cancer, fibromyalgia. PLAN: 1. Fluids and pain management. 2. Follow up on CT abdomen and pelvis. 3. Surgical consult, expect less than 2 days observation.
[2020-11-12] MEDS ORDERED: METO25 PO (17:33)
[2020-11-12] MEDS ORDERED: MIRALAX17 GM PO (17:34)
[2020-11-12] MEDS ORDERED: POTA20LUD PO (17:35)
--- NOTE | 2020-11-12 19:09 | NUR ---
PT IS ALERT, NODS YES/NO AND ANSWERS SOME SIMPLE YES/NO QUESTIONS, THE PT APPEARS TO BE BREATHING EASILY ON RA AT THIS TIME, THE PTS TUBE FEEDING WAS RESTARTED SET UP BY THE MUFFLER HAND, THE PT SEEMED TO TOLERATE THE FEEDINGS WELL ONLY 30CC RESIDUAL BETWEEN FEEDING, THE PT APPEARED TO BE IN PAIN WHEN REPOSTIONED FENTANYL WAS GIVEN FOR PAIN, THE WAS GIVEN MIRALAX AND A SUPPOSITORY TODAY FOR CONSTIPATION WHICH RESULTED IN 2 LARGE SOFT BM'S TODAY, PT WAS TO BE DISCHARGED, HOWEVER, HER WAS NOT ABLE TO BE REACHED TO PICK HER UP, WAS NOTIFIED AND THE PT WILL STAY OVER NIGHT AND BE DC'D IN THE AM
--- NOTE | 2020-11-12 19:49 | NUR ---
ASSUMPTION OF CARE: FLAT AFFECT, QUITE, TALKS VERY LITTLE AND TENDS TO BE ONE OR TWO WORD SENTENCES. REPORTS PAIN ABDOMIN "IT HURTS". DOES NOT GIVE NUMBER. ABDOMIN TENDER, GUARDED, HYPOACTIVE. NO NAUSEA. BM TWICE TODAY. PEG TUBE IN PLACE, DRESSING CLEAN. WILL MEDICATE FOR PAIN. CALL LIGHT IS IN REACH.
--- NOTE | 2020-11-12 23:46 | NUR ---
GERRY IS SLEEPING, PAIN MED FINALLY KICKED IN. NO SIGNS OF DISTRESS NOTED. WILL CONTINUE TO MONITOR. CALL LIGHT IS IN REACH.
[2020-11-13 05:35] LABS: Anion Gap 8 mmol/L (6-16); Blood Urea Nitrogen 10 mg/dL (8-24); Bun/Creatinine Ratio 17.8 (12.0-20.0); CO2, Blood 28 mmol/L (21-32); Calcium, Blood 8.9 mg/dL (8.5-10.1); Chloride, Blood 107 mmol/L (98-108); Creatinine, Blood 0.56 mg/dL (0.40-1.00); Glomerular Filtration Rate >60 (60-); Glucose, Blood 97 mg/dL (70-99); Magnesium, Blood 1.7 mg/dL (1.6-2.4); Phosphorus, Blood 2.9 mg/dL (2.5-4.9); Potassium, Blood 3.7 mmol/L (3.5-5.5); Sodium, Blood 143 mmol/L (136-145)
--- NOTE | 2020-11-13 06:29 | NUR ---
SHIFT SUMMARY: AOX3, SPEAKS FEW WORDS BUT DOES NOT USE CALL LIGHT. PAIN HAS BEEN MORE OF OCCURANCE THIS SHIFT. GAVE FENTANYL LAST BEING THE FULL DOSE OF 50MCQ TO GET HER COMFORTABLE. HAD TO START A NEW IV THE OTHERONE WAS TENDER. SHE DID HAVE EPISODE WHERE SHE WAS FOUND OUT IN THE [place] STAYING SHE HAD TO GO TO THE BATHROOM, BED WAS SATURATED WITH URINE, SHE USED THE BATHROOM. ONCE CLEANSED UP SHE WENT BACK TO SLEEP. PEG TUBE HAS BEEN DOING WELL, USED FOR MEDS SEVERAL TIMES, NO NAUSEA NOTED. ORAL CARE WAS OFFERED DUE TO BUILDUP AND BAD BREATH BUT SHE REFUSED. BED ALARM IS ON, VS WNL, CALL LIGHT IS IN REACH.
--- NOTE | 2020-11-13 13:32 | NUR ---
SHIFT SUMMARY. 1310 PT DISCHARGED HOME VIA PERSONAL VEHICLE ACCOMPANIED AND DRIVEN BY TRANSITIONAL KINDERGARTEN TEACHER. PT RECIEVED MOST OF AM TF MIXED WITH H2O THIS AM. IV REMOVED. D/C PAPERWORK REVIEWED WITH PT AND COPY PROVIDED. PT WITH PAIN THIS AM, MANAGED WELL WITH CURRENT ORDERS. NO SOB, N/V. NO NEW CHANGES OR CONCERNS.
== END 2020-11-13 13:07 | disposition home health service (06) ==
LOC: ER 10:40 → ERHOLD 10:41 → MEDS 10:41
PROVIDERS: Student in an Organized Health Care Education/Training Program; ADMIT Internal Medicine
DX: K94.23 Gastrostomy malfunction (principal); I48.91 Unspecified atrial fibrillation; I10 Essential (primary) hypertension; R56.9 Unspecified convulsions; M79.7 Fibromyalgia; Z87.820 Personal history of traumatic brain injury; Z85.850 Personal history of malignant neoplasm of thyroid; Z85.42 Personal history of malignant neoplasm of other parts of uterus
CPT/HCPCS: 36415; 74018; 74176; 80048; 80053; 83735; 84100; 85025; 96365; 96366; 96372; 96375; 96376; 99284-25; A9270; G0378; J1170; J1650; J1953; J3010; J7030

== ENCOUNTER 2021-02-24 14:30 | Emergency (ER) | payer MEDICARE, OTHER ==
[~2021-02-24] VITALS: Ht 180.3 cm; Wt 59.0 kg
[~2021-02-24 14:30] MED LIST changes: +LISINOPRIL2.5 MG PO; +METO25 PO; +METOPROLOL SUCC25 MG PO; +MIRALAX17 GM PO; +OXYB5 PO; +POTA20LUD PO
[2021-02-24 15:18] LABS: BASOPHILS ABSOLUTE AUTO 0.01 K/mm3 (0.00-0.23); BASOPHILS PERCENT AUTO 0 % (0-2); EOSINOPHILS ABSOLUTE AUTO 0.05 K/mm3 (0.00-0.68); EOSINOPHILS PERCENT AUTO 1 % (0-6); Hematocrit 39.6 % (33.0-51.0); Hemoglobin 12.9 g/dL (11.5-16.0); IMMATURE GRAN PERCENT AUTO 0 % (0-1); LYMPHOCYTES ABSOLUTE AUTO 1.48 K/mm3 (0.84-5.20); LYMPHOCYTES PERCENT AUTO 36 % (21-46); MONOCYTES ABSOLUTE AUTO 0.14 K/mm3 (0.16-1.47); MONOCYTES PERCENT AUTO 3 % (4-13); Mean Corpuscular HGB 28.9 pg (26.0-34.0); Mean Corpuscular HGB Conc 32.6 g/dL (31.5-36.5); Mean Corpuscular Volume 89 fL (80-100); Mean Platelet Volume 12.3 fL (9.1-12.4); NEUTROPHILS ABSOLUTE AUTO 2.41 K/mm3 (1.96-9.15); NEUTROPHILS PERCENT AUTO 59 % (41-73); Platelet Count 188 K/mm3 (150-400); RDW Coefficient Variation 15.2 % (11.7-14.2); RDW Standard Deviation 48.4 fL (35.1-46.3); Red Blood Cell Count 4.47 M/mm3 (3.80-5.20); White Blood Cell Count 4.09 K/mm3 (4.00-11.30)
[2021-02-24 15:33] LABS: International Normalized Ratio 1.01; Prothrombin Time Results 10.9 Sec (9.7-11.5)
[2021-02-24 15:42] LABS: Alanine Aminotransfer (ALT/SGP 58 U/L (12-78); Albumin, Blood 3.1 g/dL (3.4-5.0); Albumin/Globulin Ratio 0.7 (0.8-1.8); Alk Phos 74 U/L (50-136); Anion Gap 3 mmol/L (6-16); Aspartate Aminotrans (AST/SGOT 38 U/L (12-37); Bilirubin, Total 0.2 mg/dL (0.1-1.0); Blood Urea Nitrogen 18 mg/dL (8-24); CO2, Blood 29 mmol/L (21-32); Calcium, Blood 8.8 mg/dL (8.5-10.1); Chloride, Blood 105 mmol/L (98-108); Creatinine, Blood 0.64 mg/dL (0.40-1.00); Globulin, Blood 4.2 g/dL (2.2-4.0); Glomerular Filtration Rate >60 (60-); Glucose, Blood 123 mg/dL (70-99); Potassium, Blood 4.4 mmol/L (3.5-5.5); Sodium, Blood 137 mmol/L (136-145); Total Protein, Blood 7.3 g/dL (6.4-8.2); Troponin I <0.015 ng/mL (0.000-0.040)
[2021-02-24 16:17] LABS: Source, Urine Catheter
[2021-02-24 16:27] LABS: Appearance, Urine Clear (Clear); Bilirubin, Urine Neg (Neg); Blood, Urine 2+ (Neg); Color, Urine Yellow (P-Yellow); Glucose Qualitative, Urine Neg (Neg); Ketones, Urine Neg (Neg); Leukocyte Esterase, Urine 1+ (Neg); Nitrite, Urine Neg (Neg); Protein, Urine Neg (Neg); Urobilinogen, Urine NORM (Normal)
[2021-02-24 16:57] LABS: Bacteria Few /hpf; Squamous Epithelial Cells Few /hpf (Few)
[2021-02-24 17:05] LABS: U Amphetamine Screen Not Detected; U Barbituate Screen Not Detected; U Benzodiazapine Screen Not Detected; U Buprenorphine Screen Not Detected; U Cannabinoids Screen Not Detected; U Cocaine Screen Not Detected; U Methadone Screen Not Detected; U Methamphetamine Screen Not Detected; U Opiates Screen Not Detected; U Oxycodone Screen Not Detected; U Phencyclidine Screen Not Detected; U Propoxyphene Screen Not Detected
== END 2021-02-24 18:47 | disposition home or self-care (01) ==
LOC: ER 14:30
PROVIDERS: Emergency Medicine; Physician Assistant
DX: R41.82 Altered mental status, unspecified (principal); E03.9 Hypothyroidism, unspecified; I10 Essential (primary) hypertension; Z88.6 Allergy status to analgesic agent; Z79.899 Other long term (current) drug therapy; Z88.5 Allergy status to narcotic agent
CPT/HCPCS: 36415; 70450; 80053; 81001; 82947; 84484; 85025; 85610; 87086; 93005; 93010; 99285-25; P9612

== ENCOUNTER 2021-02-26 10:26 | Emergency (ER) | payer MEDICARE, OTHER ==
[~2021-02-26] VITALS: Ht 167.6 cm; Wt 63.5 kg
[2021-02-26 10:45] LABS: Calcium, Ionized (POC) 1.21 mmol/L (1.10-1.46); Chloride (POC) 99 mmol/L (98-108); Creatinine (POC) 0.8 mg/dL (0.6-1.0); Glucose (ISTAT POC) 75 mg/dL (70-99); Hemoglobin (POC) 14.3 g/dL (12.0-16.0); Potassium (POC) 4.1 mmol/L (3.5-5.5); Sodium (POC) 139 mmol/L (135-148); Total CO2 (POC) 34 mmol/L (21-32)
[2021-02-26] MEDS ORDERED: LEVSOD150 PO (12:51)
[2021-02-26] MEDS ORDERED: Mirtazapine15 M1 SL (12:52)
[2021-02-26] MEDS ORDERED: TAMSULOSIN HCL0.4 M1 PO (12:52)
[2021-02-26] MEDS ORDERED: CYCLOBENZAPRINE5 MG PO (12:53)
[2021-02-26] MEDS ORDERED: CONSTULOSE10 GM/155 PO (12:53)
[2021-02-26] MEDS ORDERED: LEVETIRACETAM PO (12:54)
[2021-02-26] MEDS ORDERED: OXYC10TA19 PO (12:54)
[2021-02-26 13:05] LABS: Alanine Aminotransfer (ALT/SGP 56 U/L (12-78); Albumin, Blood 3.3 g/dL (3.4-5.0); Albumin/Globulin Ratio 0.7 (0.8-1.8); Alk Phos 76 U/L (50-136); Anion Gap 3 mmol/L (6-16); Aspartate Aminotrans (AST/SGOT 38 U/L (12-37); Bilirubin, Total 0.4 mg/dL (0.1-1.0); Blood Urea Nitrogen 20 mg/dL (8-24); Bun/Creatinine Ratio 28.2 (12.0-20.0); CO2, Blood 31 mmol/L (21-32); Calcium, Blood 9.3 mg/dL (8.5-10.1); Chloride, Blood 103 mmol/L (98-108); Creatinine, Blood 0.71 mg/dL (0.40-1.00); Globulin, Blood 4.5 g/dL (2.2-4.0); Glomerular Filtration Rate >60 (60-); Glucose, Blood 60 mg/dL (70-99); Sodium, Blood 137 mmol/L (136-145); Total Protein, Blood 7.8 g/dL (6.4-8.2)
[2021-02-26 13:11] LABS: BASOPHILS ABSOLUTE AUTO 0.01 K/mm3 (0.00-0.23); BASOPHILS PERCENT AUTO 0 % (0-2); EOSINOPHILS ABSOLUTE AUTO 0.08 K/mm3 (0.00-0.68); EOSINOPHILS PERCENT AUTO 2 % (0-6); Hematocrit 42.3 % (33.0-51.0); Hemoglobin 13.6 g/dL (11.5-16.0); IMMATURE GRAN PERCENT AUTO 0 % (0-1); LYMPHOCYTES ABSOLUTE AUTO 2.27 K/mm3 (0.84-5.20); LYMPHOCYTES PERCENT AUTO 58 % (21-46); MONOCYTES ABSOLUTE AUTO 0.32 K/mm3 (0.16-1.47); MONOCYTES PERCENT AUTO 8 % (4-13); Mean Corpuscular HGB 28.6 pg (26.0-34.0); Mean Corpuscular HGB Conc 32.2 g/dL (31.5-36.5); Mean Corpuscular Volume 89 fL (80-100); NEUTROPHILS ABSOLUTE AUTO 1.23 K/mm3 (1.96-9.15); NEUTROPHILS PERCENT AUTO 31 % (41-73); NRBC ABSOLUTE 0.02 K/mm3 (0.00-0.02); NRBC Auto 0.5 /100 WBC (0.0-0.2); Platelet Count 162 K/mm3 (150-400); RDW Coefficient Variation 15.1 % (11.7-14.2); RDW Standard Deviation 49.1 fL (35.1-46.3); Red Blood Cell Count 4.76 M/mm3 (3.80-5.20); White Blood Cell Count 3.91 K/mm3 (4.00-11.30)
[2021-02-26 13:18] LABS: Mean Platelet Volume 13.7 fL (9.1-12.4)
[2021-02-26 13:50] LABS: Free Thyroxine 0.89 ng/dL (0.70-1.60); Triiodothyronine, Free 1.85 pg/mL (2.18-3.98)
== END 2021-02-26 18:02 | disposition home or self-care (01) ==
LOC: ER 10:26
PROVIDERS: Emergency Medicine
DX: R41.82 Altered mental status, unspecified (principal); I10 Essential (primary) hypertension; E03.9 Hypothyroidism, unspecified; Z88.1 Allergy status to other antibiotic agents; Z88.6 Allergy status to analgesic agent; Z88.0 Allergy status to penicillin; Z88.5 Allergy status to narcotic agent; Z79.899 Other long term (current) drug therapy
CPT/HCPCS: 36415; 80047; 80053; 82947; 84439; 84481; 85014; 85025; 93005; 93010; 96374; 96375; 99284-25; J1610; J2405

== ENCOUNTER 2021-03-19 12:53 | Emergency (ER) | payer MEDICARE, OTHER ==
[~2021-03-19] VITALS: Ht 170.2 cm; Wt 65.8 kg
[~2021-03-19 12:53] MED LIST changes: +CONSTULOSE10 GM/155 PO; +CYCLOBENZAPRINE5 MG PO; +LEVETIRACETAM PO; +Mirtazapine15 M1 SL; +OXYC10TA19 PO; +TAMSULOSIN HCL0.4 M1 PO
[2021-03-19 13:35] LABS: Calcium, Ionized (POC) 1.19 mmol/L (1.10-1.46); Chloride (POC) 99 mmol/L (98-108); Creatinine (POC) 0.6 mg/dL (0.6-1.0); Glucose (ISTAT POC) 130 mg/dL (70-99); Hemoglobin (POC) 14.3 g/dL (12.0-16.0); Potassium (POC) 4.2 mmol/L (3.5-5.5); Sodium (POC) 140 mmol/L (135-148); Total CO2 (POC) 28 mmol/L (21-32)
== END 2021-03-19 16:16 | disposition home or self-care (01) ==
LOC: ER 12:53
DX: R41.82 Altered mental status, unspecified (principal); Z88.6 Allergy status to analgesic agent; Z88.0 Allergy status to penicillin; Z88.5 Allergy status to narcotic agent; Z79.899 Other long term (current) drug therapy
CPT/HCPCS: 80047; 85014; 99284

== ENCOUNTER 2021-05-01 17:41 | Emergency (ER) | payer MEDICARE, OTHER ==
[~2021-05-01] VITALS: Ht 167.6 cm; Wt 72.6 kg
[2021-05-01 18:09] LABS: BASOPHILS ABSOLUTE AUTO 0.01 K/mm3 (0.00-0.23); BASOPHILS PERCENT AUTO 0 % (0-2); EOSINOPHILS ABSOLUTE AUTO 0.05 K/mm3 (0.00-0.68); EOSINOPHILS PERCENT AUTO 2 % (0-6); Hematocrit 41.4 % (33.0-51.0); Hemoglobin 13.4 g/dL (11.5-16.0); IMMATURE GRAN ABSOLUTE AUTO 0.02 K/mm3 (0.00-0.10); IMMATURE GRAN PERCENT AUTO 1 % (0-1); LYMPHOCYTES ABSOLUTE AUTO 1.52 K/mm3 (0.84-5.20); LYMPHOCYTES PERCENT AUTO 45 % (21-46); MONOCYTES ABSOLUTE AUTO 0.24 K/mm3 (0.16-1.47); MONOCYTES PERCENT AUTO 7 % (4-13); Mean Corpuscular HGB 29.8 pg (26.0-34.0); Mean Corpuscular HGB Conc 32.4 g/dL (31.5-36.5); Mean Corpuscular Volume 92 fL (80-100); Mean Platelet Volume 10.8 fL (9.1-12.4); NEUTROPHILS ABSOLUTE AUTO 1.57 K/mm3 (1.96-9.15); NEUTROPHILS PERCENT AUTO 46 % (41-73); Platelet Count 174 K/mm3 (150-400); RDW Coefficient Variation 14.6 % (11.7-14.2); RDW Standard Deviation 49.1 fL (35.1-46.3); Red Blood Cell Count 4.49 M/mm3 (3.80-5.20); White Blood Cell Count 3.41 K/mm3 (4.00-11.30)
[2021-05-01 18:23] LABS: Source, Urine Catheter
[2021-05-01 18:28] LABS: Alanine Aminotransfer (ALT/SGP 37 U/L (12-78); Albumin, Blood 3.3 g/dL (3.4-5.0); Albumin/Globulin Ratio 0.7 (0.8-1.8); Alk Phos 88 U/L (50-136); Anion Gap 4 mmol/L (6-16); Aspartate Aminotrans (AST/SGOT 29 U/L (12-37); Bilirubin, Total 0.5 mg/dL (0.1-1.0); Blood Urea Nitrogen 23 mg/dL (8-24); Bun/Creatinine Ratio 30.3 (12.0-20.0); CO2, Blood 30 mmol/L (21-32); Calcium, Blood 8.9 mg/dL (8.5-10.1); Chloride, Blood 103 mmol/L (98-108); Creatinine, Blood 0.76 mg/dL (0.40-1.00); Free Thyroxine 0.95 ng/dL (0.70-1.60); Globulin, Blood 4.6 g/dL (2.2-4.0); Glomerular Filtration Rate >60 (60-); Glucose, Blood 78 mg/dL (70-99); Sodium, Blood 137 mmol/L (136-145); Total Protein, Blood 7.9 g/dL (6.4-8.2)
[2021-05-01 18:30] LABS: Bilirubin, Urine Neg (Neg); Blood, Urine 5+ (Neg); Color, Urine Yellow (P-Yellow); Glucose Qualitative, Urine Neg (Neg); Ketones, Urine Neg (Neg); Leukocyte Esterase, Urine 1+ (Neg); Nitrite, Urine Neg (Neg); Protein, Urine 1+ (Neg); Urobilinogen, Urine NORM (Normal); pH, Urine 6.5 (5.0-8.0)
[2021-05-01 18:53] LABS: Appearance, Urine Clear (Clear)
[2021-05-01 18:58] LABS: Bacteria Rare /hpf; Squamous Epithelial Cells Mod /hpf (Few)
== END 2021-05-01 20:14 | disposition home or self-care (01) ==
LOC: ER 17:41
PROVIDERS: Emergency Medicine
DX: R41.82 Altered mental status, unspecified (principal); E03.9 Hypothyroidism, unspecified; I10 Essential (primary) hypertension; Z88.6 Allergy status to analgesic agent; Z88.8 Allergy status to other drugs, medicaments and biological substances; Z88.1 Allergy status to other antibiotic agents; Z88.0 Allergy status to penicillin; Z88.5 Allergy status to narcotic agent; Z79.899 Other long term (current) drug therapy; Z79.890 Hormone replacement therapy
CPT/HCPCS: 80053; 81001; 84439; 84443; 85025; 87086; 93005; 93010; 99284-25; P9612

== ENCOUNTER 2021-07-28 13:39 | Inpatient (IN) | payer MEDICARE, OTHER ==
[~2021-07-28] VITALS: Ht 165.1 cm; Wt 64.5 kg
[2021-07-28 15:29] LABS: Source, Urine Catheter
[2021-07-28 15:34] LABS: Appearance, Urine Clear (Clear); Bilirubin, Urine Neg (Neg); Blood, Urine Neg (Neg); Color, Urine Yellow (P-Yellow); Glucose Qualitative, Urine Neg (Neg); Ketones, Urine Neg (Neg); Leukocyte Esterase, Urine Neg (Neg); Nitrite, Urine Neg (Neg); Protein, Urine Neg (Neg); Specific Gravity, Urine 1.015 (1.003-1.022); Urobilinogen, Urine NORM (Normal); pH, Urine 6.5 (5.0-8.0)
[2021-07-28] MEDS ORDERED: POTA20LUD PT (16:30)
[2021-07-28] MEDS ORDERED: DULO30 PO (16:31)
[2021-07-28] MEDS ORDERED: EUTHYROX50 MCG PO (16:32)
[2021-07-28] MEDS ORDERED: CYCL10 PO (16:32)
[2021-07-28 16:39] LABS: BASOPHILS ABSOLUTE AUTO 0.01 K/mm3 (0.00-0.23); BASOPHILS PERCENT AUTO 0 % (0-2); EOSINOPHILS ABSOLUTE AUTO 0.03 K/mm3 (0.00-0.68); EOSINOPHILS PERCENT AUTO 1 % (0-6); Hemoglobin 12.3 g/dL (11.5-16.0); IMMATURE GRAN ABSOLUTE AUTO 0.01 K/mm3 (0.00-0.10); IMMATURE GRAN PERCENT AUTO 0 % (0-1); LYMPHOCYTES ABSOLUTE AUTO 1.03 K/mm3 (0.84-5.20); LYMPHOCYTES PERCENT AUTO 33 % (21-46); MONOCYTES PERCENT AUTO 10 % (4-13); Mean Corpuscular HGB 29.6 pg (26.0-34.0); Mean Corpuscular HGB Conc 33.2 g/dL (31.5-36.5); Mean Corpuscular Volume 89 fL (80-100); Mean Platelet Volume 11.7 fL (9.1-12.4); NEUTROPHILS ABSOLUTE AUTO 1.76 K/mm3 (1.96-9.15); NEUTROPHILS PERCENT AUTO 56 % (41-73); Platelet Count 129 K/mm3 (150-400); RDW Coefficient Variation 14.2 % (11.7-14.2); RDW Standard Deviation 45.9 fL (35.1-46.3); Red Blood Cell Count 4.16 M/mm3 (3.80-5.20); White Blood Cell Count 3.14 K/mm3 (4.00-11.30)
[2021-07-28 17:02] LABS: Magnesium, Blood 2.1 mg/dL (1.6-2.4)
[2021-07-28 17:15] LABS: Alanine Aminotransfer (ALT/SGP 35 U/L (12-78); Albumin, Blood 3.2 g/dL (3.4-5.0); Albumin/Globulin Ratio 0.7 (0.8-1.8); Alk Phos 77 U/L (50-136); Anion Gap 2 mmol/L (6-16); Aspartate Aminotrans (AST/SGOT 31 U/L (12-37); Bilirubin, Total 0.5 mg/dL (0.1-1.0); Blood Urea Nitrogen 18 mg/dL (8-24); Bun/Creatinine Ratio 28.3 (12.0-20.0); CO2, Blood 33 mmol/L (21-32); Calcium, Blood 9.6 mg/dL (8.5-10.1); Chloride, Blood 106 mmol/L (98-108); Creatinine, Blood 0.64 mg/dL (0.40-1.00); Globulin, Blood 4.5 g/dL (2.2-4.0); Glomerular Filtration Rate >60 (60-); Glucose, Blood 63 mg/dL (70-99); Potassium, Blood 4.4 mmol/L (3.5-5.5); Sodium, Blood 141 mmol/L (136-145); Total Protein, Blood 7.7 g/dL (6.4-8.2)
[2021-07-28 21:03] LABS: Influenza A, PCR NEGATIVE (NEGATIVE); Influenza B, PCR NEGATIVE (NEGATIVE); Resp Syncytial Virus, PCR NEGATIVE (NEGATIVE); SARS-Cov-2 (COVID-19) PCR, MMC NEGATIVE (NEGATIVE)
[2021-07-28 23:50] LABS: Source, Urine Catheter
[2021-07-28 23:54] LABS: Bilirubin, Urine Neg (Neg); Blood, Urine 1+ (Neg); Glucose Qualitative, Urine Neg (Neg); Ketones, Urine 1+ (Neg); Leukocyte Esterase, Urine 3+ (Neg); Nitrite, Urine Pos (Neg); Protein, Urine Neg (Neg); Urobilinogen, Urine NORM (Normal)
[2021-07-28 23:57] LABS: Appearance, Urine Hazy (Clear); Color, Urine Pale Yellow (P-Yellow)
[2021-07-29 00:03] LABS: U Amphetamine Screen Not Detected; U Barbituate Screen Not Detected; U Benzodiazapine Screen DETECTED; U Buprenorphine Screen Not Detected; U Cannabinoids Screen Not Detected; U Cocaine Screen Not Detected; U Methadone Screen Not Detected; U Methamphetamine Screen Not Detected; U Opiates Screen Not Detected; U Oxycodone Screen DETECTED; U Phencyclidine Screen Not Detected; U Propoxyphene Screen Not Detected
[2021-07-29 00:04] LABS: Bacteria Many /hpf; Red Blood Cells, Urine Rare /hpf (0-2); Squamous Epithelial Cells Rare /hpf (Few); White Blood Cells, Urine TNTC /hpf (0-5)
[2021-07-29 04:23] LABS: BASOPHILS PERCENT AUTO 0 % (0-2); EOSINOPHILS ABSOLUTE AUTO 0.03 K/mm3 (0.00-0.68); EOSINOPHILS PERCENT AUTO 1 % (0-6); Hematocrit 35.2 % (33.0-51.0); Hemoglobin 11.6 g/dL (11.5-16.0); IMMATURE GRAN PERCENT AUTO 0 % (0-1); LYMPHOCYTES ABSOLUTE AUTO 1.15 K/mm3 (0.84-5.20); LYMPHOCYTES PERCENT AUTO 46 % (21-46); MONOCYTES ABSOLUTE AUTO 0.23 K/mm3 (0.16-1.47); MONOCYTES PERCENT AUTO 9 % (4-13); Mean Corpuscular HGB 29.5 pg (26.0-34.0); Mean Corpuscular Volume 90 fL (80-100); NEUTROPHILS ABSOLUTE AUTO 1.07 K/mm3 (1.96-9.15); NEUTROPHILS PERCENT AUTO 43 % (41-73); RDW Coefficient Variation 14.3 % (11.7-14.2); RDW Standard Deviation 46.4 fL (35.1-46.3); Red Blood Cell Count 3.93 M/mm3 (3.80-5.20); White Blood Cell Count 2.48 K/mm3 (4.00-11.30)
[2021-07-29 04:29] LABS: Mean Platelet Volume 12.1 fL (9.1-12.4); Platelet Count 98 K/mm3 (150-400)
[2021-07-29 04:41] LABS: Alanine Aminotransfer (ALT/SGP 31 U/L (12-78); Albumin, Blood 2.9 g/dL (3.4-5.0); Albumin/Globulin Ratio 0.7 (0.8-1.8); Alk Phos 72 U/L (50-136); Anion Gap 4 mmol/L (6-16); Aspartate Aminotrans (AST/SGOT 27 U/L (12-37); Bilirubin, Total 0.7 mg/dL (0.1-1.0); Blood Urea Nitrogen 16 mg/dL (8-24); Bun/Creatinine Ratio 28.4 (12.0-20.0); CO2, Blood 29 mmol/L (21-32); Calcium, Blood 9.4 mg/dL (8.5-10.1); Chloride, Blood 109 mmol/L (98-108); Creatinine, Blood 0.56 mg/dL (0.40-1.00); Glomerular Filtration Rate >60 (60-); Glucose, Blood 66 mg/dL (70-99); Potassium, Blood 3.8 mmol/L (3.5-5.5); Sodium, Blood 142 mmol/L (136-145); Total Protein, Blood 6.9 g/dL (6.4-8.2)
--- NOTE | 2021-07-29 07:38 | NUR ---
SHIFT SUMMARY PATIENT IS RESTING COMFORTABLY IN BED. BED IS IN LOW POSITION. CALL LIGHT IS IN REACH. PATIENT WAS A NEW ADMIT TO THE FLOOR. PATIENT WAS ORIENTED TO THE FLOOR AND THE STAFF. WAS UNALBE TO COMPLETE ADMISSION HISTORY DUE TO PATIENT BEING CONFUSED AND UNABLE TO ANSWER QUESTION. SHE WAS ABLE TO FOLLOW COMMANDS AT THE START OF SHIFT BUT WAS NOT ABLE TO FOLLOW COMMANDS MID SHIFT. THE PATIENT CURRENTLY HAS A DONG CATHETER AND DRAINING HAZY PALE YELLOW URINE. THE PATIENT IS ONLY ABLE TO STATE HER FIRST NAME. SHE ALSO PULLED OUT AN IV THIS MORNING. VITAL WERE STABLE DURING THE NIGHT. THE PATIENT DID NOT COMPLAIN OF PAIN SHE WOULD MOAN BUT WAS UNABLE TO VERBALIZER WHEN SHE WAS IN PAIN. SHE NO SEIZURE DURING THE NIGHT. WILL CONTINUE TO MONITOR. REPORT GIVEN TO DAY SHIFT RN.
--- NOTE | 2021-07-29 09:24 | NUR ---
ASSUMED CARE THIS AM; PT WAS HYPOTHERMIC THIS AM WAS 89-90F ON ORAL/RECTAL THERMOMETER, RECTAL TEMP PROBE ON AT THIS TIME TO CONTINUE TO MONITOR, BEAR HUGGER IN PLACE SET AT A HIGH TEMP PT STILL AT 92.8F. VITALS BP SYSTOLIC WAS AT 120-130'S THIS AM NOW STARTING TO GO SOFT 90-100'S, LR RUNNING AT 75MLS/HR, SATS ABOVE 98% ON 2L OF NC PT HAS EPISODES OF SLEEP APNEA AND WILL DESAT TO LOW 80'S. PT IS ALERT FOLLOWS SIMPLE COMMAND, RESPONDS TO CLOSE ENDED QUESTIONS. THIS RN WAS ABLE TO TALK TO THE ON THE PHONE TO GET A BASELINE ABOUT THE PT, PT WAS ABLE TO WALK AT WITH A WALKING STICK, COMMUNICATES USUALLY RESPONDS TO CLOSE ENDED WUESTIONS, AFTER HAVING SEIZURE PT STARTED GETTING CONFUSED, ALSO EATS THROUGH THE PEG TUBE, WAS STILL ABLE TO TAKE PO LIKE SOFT FOOD AND MEDS CRUSHED WITH APPLESAUCE, STATED PT TAKES 5 CANS A DAY OF JEVITY. PT IS CURRENTLY IN THE ROOM DOING KAILEY PROCEDURE. REMAINS ON Q4 HEURO CHECKS NO EPISDOES OF SEIZURE AT THIS TIME. WILL MONITOR
--- NOTE | 2021-07-29 14:15 | NUR ---
UPDATE: PT'S SBP REMAINS SOFT ON THE LOW 90'S EVEN AFTER 1L OF NS BOLUS MAP ABOVE 70, NS NOW RUNNING AT 100MLS/HR. HRR NOW BACK TO SINUS RHYTHM/SINUS TACH ON THE 90-100'S, PT IS NOW ON RA SATS ABOVE 95%, RR EVEN AND UNLABORED, TEMP 98.2F BEAR HUGGER NOW ON STANDBY, WARM BLANKETS IN PLACE. PT MORE ALERT INTERMITTENT CONFUSION NOTED, STILL ANSWERS CLOSE ENDED QUESTIONS RESPONDS "YEAH"/"NO", TEARFUL AT TIMES RESPONDED "NO" IF ASKS IF SHE'S IN PAIN AND THEN PHYSICAL THERAPIST WORKED WITH THE PT UPON GETTING PT ON THE SIDE OF THE BED PT STARTED POINTING ON THE BACK WHEN ASKED IF SHE'S HURTING. PT REMAINS ON Q4 NEURO CHECKS, PT WAS NOT ABLE TO STATE NAME DOES NOT KNOW WHERE SHE'S AT THIS TIME ON THE SECOND ASSESSMENT, ROM INTACT ON BOTH UPPER AND LOWER EXT. PT REFUSED ORAL CARE NO SWALLOW/GAG REFLEX NOTED FOR THE SHIFT SPEECH THERAPIST WAS NOT ABLE TO DO FULL EVAL WITH THE PT, PT WAS NOT ABLE TO SWALLOW/PARTICIPATE. FOLLOWS SOME SIMPLE COMMANDS, TEARFUL/EMOTIONAL MOST OF THE TIME. PT IN BED RESTING NOW, NO SEIZURE ACTIVITY NOTED FOR THE SHIFT, BLOOD CULTURE PENDING, VANCO STARTED. WILL CONTINUE TO MONITOR
--- NOTE | 2021-07-29 16:00 | NUR ---
PT TRANSFERRED TO ICU 6, REPORT GIVEN TO ILANA FIGUEROA, LEVOPHED GTT STARTED AT 2MCG/HR, BP SYSTOLIC STILL RANGING 70-80'S MAP 60'S. MADE AWARE, ALL BELONGINGS SENT WITH THE PT.
[2021-07-29 16:07] LABS: Source, Urine Catheter
[2021-07-29 16:13] LABS: Appearance, Urine Hazy (Clear); Bilirubin, Urine Neg (Neg); Blood, Urine 1+ (Neg); Glucose Qualitative, Urine Neg (Neg); Ketones, Urine Neg (Neg); Leukocyte Esterase, Urine 3+ (Neg); Nitrite, Urine Neg (Neg); Protein, Urine 2+ (Neg); Specific Gravity, Urine 1.015 (1.003-1.022); Urobilinogen, Urine NORM (Normal)
--- NOTE | 2021-07-29 16:20 | NUR ---
PT ADMITTED TO ICU 6 FROM PCU 9 AT 1554. PT ARRIVED AWAKE AND ALERT. PT ABLE TO STATE NAME, AND AGREE TO BIRTHDATE. PT INTERACTIVE AND FOLLOWING DIRECTIONS. DONG FOUND TO BE LEAKING ON ADMIT, DONG CHANGED OUT FOR DONG TEMP PROBE, CORE TEMP 97.9. PT IS FLUSHED. LUNGS CLEAR, SATS 99% ON RA. BP MILDLY HYPOTENSIVE W MAP >65 ON LEVOPHED GTT AT ONLY 2MCG. LOW DOSE LEVOPHED INFUSING VIA PERIPHERAL IV, SITE WNL. PT IN SINUS RHTHYM W RATE 70-80'S.
[2021-07-29 16:41] LABS: Color, Urine Pale Yellow (P-Yellow); White Blood Cells, Urine TNTC /hpf (0-5)
[2021-07-29 16:45] LABS: Bacteria Mod /hpf; Squamous Epithelial Cells Few /hpf (Few)
--- NOTE | 2021-07-29 17:00 | NUR ---
LOW BLOOD SUGAR/EARLY TF CBG RESULT OF 69. JEVITY TF ORDERED FOR 190 STARTED EARLY TO INCREASE BLOOD GLUCOSE.
--- NOTE | 2021-07-29 18:06 | NUR ---
SHIFT SUMMARY LEVOPHED TITRATED OFF AND CURRENTLY ON SB. BP STABLE W/ SBP 90-100'S AND MAPS 70'S. TEMP DONG REMAINS PATENT AND DRAINING W/ TEMP 97'S F. PG IN DUNIA PATENT AND INFUSING AND 18G IV IN RT FOREARM SALINE LOCKED. NSR W/ RATE IN 70'S-80'S. NO OTHER MAJOR CHANGES DURING SHIFT.
--- NOTE | 2021-07-29 20:44 | NUR ---
ASSUMED CARE REPORT RECEIVED FROM DAY SHIFT RN. PT RESTING IN BED, ALERT AND AWAKE. PT IS AAOX2, FOLLOWS COMMANDS, AND ANSWERS QUESTIONS WITH NODDING YES AND NO. PT VERBALIZES YES AND NO. PT IS NSR/SB ON THE MONITOR. PT BLOOD PRESSURE NORMOTENSIVE DOES NOT NEED LEVOPHED GTT. DONG CATHETER IN PLACE, DRAINING. WILL CONTINUE TO MONITOR. SEE SHIFT ASSESSMENT. SAFETY MEASURES IN PLACE.
[2021-07-30 04:49] LABS: BASOPHILS ABSOLUTE AUTO 0.01 K/mm3 (0.00-0.23); BASOPHILS PERCENT AUTO 0 % (0-2); EOSINOPHILS ABSOLUTE AUTO 0.02 K/mm3 (0.00-0.68); EOSINOPHILS PERCENT AUTO 1 % (0-6); Hematocrit 30.5 % (33.0-51.0); Hemoglobin 10.1 g/dL (11.5-16.0); IMMATURE GRAN ABSOLUTE AUTO 0.01 K/mm3 (0.00-0.10); IMMATURE GRAN PERCENT AUTO 0 % (0-1); LYMPHOCYTES ABSOLUTE AUTO 1.16 K/mm3 (0.84-5.20); LYMPHOCYTES PERCENT AUTO 42 % (21-46); MONOCYTES ABSOLUTE AUTO 0.26 K/mm3 (0.16-1.47); MONOCYTES PERCENT AUTO 9 % (4-13); Mean Corpuscular HGB 29.8 pg (26.0-34.0); Mean Corpuscular HGB Conc 33.1 g/dL (31.5-36.5); Mean Corpuscular Volume 90 fL (80-100); Mean Platelet Volume 11.8 fL (9.1-12.4); NEUTROPHILS ABSOLUTE AUTO 1.32 K/mm3 (1.96-9.15); NEUTROPHILS PERCENT AUTO 47 % (41-73); Platelet Count 106 K/mm3 (150-400); RDW Coefficient Variation 14.5 % (11.7-14.2); RDW Standard Deviation 47.5 fL (35.1-46.3); Red Blood Cell Count 3.39 M/mm3 (3.80-5.20); White Blood Cell Count 2.78 K/mm3 (4.00-11.30)
--- NOTE | 2021-07-30 04:52 | NUR ---
PT NOTED TO HAVE INCREASED REDNESS AND INCREASED RED BLOTCHES TO FACE. NOTED AFTER PT'S FIRST VANCOMYCIN ADMINSTRATION. SMALL RED BLOTCHES TO BILATERAL ELBOWS. NO BLOTCHES NOTED TO ABDOMEN OR LEGS. DR. RAMSAY NOTIFIED, TELEPHONE ORDER RECEIVED TO HOLD VANCOMYCIN UNTIL DAY SHIFT HOSPITALIST CAN SEE THE PATIENT. WILL CONTINUE TO MONITOR.
[2021-07-30 05:32] LABS: Anion Gap 8 mmol/L (6-16); Blood Urea Nitrogen 13 mg/dL (8-24); Bun/Creatinine Ratio 16.9 (12.0-20.0); CO2, Blood 23 mmol/L (21-32); Calcium, Blood 8.6 mg/dL (8.5-10.1); Chloride, Blood 116 mmol/L (98-108); Creatinine, Blood 0.77 mg/dL (0.40-1.00); Glomerular Filtration Rate >60 (60-); Glucose, Blood 76 mg/dL (70-99); Magnesium, Blood 1.7 mg/dL (1.6-2.4); Phosphorus, Blood 3.8 mg/dL (2.5-4.9); Potassium, Blood 3.3 mmol/L (3.5-5.5); Sodium, Blood 147 mmol/L (136-145)
--- NOTE | 2021-07-30 06:26 | NUR ---
SHIFT SUMMARY PT IN BED, FOLLOWS COMMANDS, ANSWERS QUESTIONS APPROPRIATELY. PT DOES OCCASSIONALLY MOAN BUT PT STATES SHE IS NOT IN PAIN OR DISTRESS. PT NSR ON THE MONITOR, NORMOTENSIVE, MAP>65 LEVOPHED GTT NOT NEEDED DURING THIS SHIFT. BS 65 AT MIDNIGHT, D50 IV PUSH GIVEN- BG RAISED TO 165. THIS AM BS IS 76. AFTER VANCOMYCIN ADMINSTRATION, RED BLOTCHES NOTED TO FACE AND INCREASED GENERALIZED REDNESS NOTED TO BILATERAL CHEEKS. 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 DR. RAMSAY NOTIFIED, VANCO HELD UNTIL DAY SHIFT HOSPITALIST SEE THIS PATIENT. PT DENIES ANY PURITIS OR PAIN TO SITE. REPORT TO BE GIVEN TO DAY SHIFT RN.
--- NOTE | 2021-07-30 07:13 | NUR ---
ASSUMED CARE PATIENT LYING IN BED, SITTING UP AWAKE AND ALERT. TRACKS TO SOUND AND ANSWERS SIMPLE CLOSED ENDED QUESTIONS W/ "YES/NO". TEMP DONG PATENT AND DRAINING LIGHT YELLOW/CLEAR URINE TO GRAVITY. NSR W/ RATE IN 80'S. NORMOTENSIVE 116/60 MAP 86. CORE TEMP OF 96.4 WHILE WRAPPED IN MULTIPLE BLANKETS. NS INF @ 125ML/HR INTO PG IN DUNIA; 18G IV IN RT FOREARM SALINE LOCKED. REPORT RECIEVED FROM DAY SHIFT RN.
[2021-07-30 09:26] LABS: Free Thyroxine 1.67 ng/dL (0.70-1.60)
[2021-07-30 09:28] LABS: Triiodothyronine, Free 1.94 pg/mL (2.18-3.98)
[2021-07-30 13:29] LABS: Vancomycin, Trough 14.7 ug/mL (5.0-10.0)
--- NOTE | 2021-07-30 15:07 | NUR ---
VISIT/FLUSHING OF FACE/JEWELRY PATIENT SITTING UP IN BED, AWAKE AND VISITING W/ SITTING AT BEDSIDE. 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 PATIENT BECAME HYPOTHERMIC W/ TEMP OF 95.4F AT THE LOWEST DESPITE WARM BLANKETS. BEAR HUGGER PLACED ON PATIENT AT 43C W/ TEMP SLOWLY INCREASING; CURRENTLY AT 95.9F. FACE IS NOW FLUSHED AND VANCOMYCIN IS INFUSING AT HALF THE RATE PREVIOUSLY PER PHARMACY GUIDANCE. PATIENT DENIES ITCHING AND IS NORMOTENSIVE. JEWELRY TAKEN HOME BY , LILY.
--- NOTE | 2021-07-30 16:30 | NUR ---
INCREASED PAIN PATIENT VERBALIZED NEW ONSET ABD PAIN W/ MOANING AND CRYING. STOPPED TF AND FLUSHED PEG TUBE. CALLED AND OBTAINED ORDERS FROM DR. SEGURA FOR HOME REGIMEN OF OXYCODONE. 10MG OXYCODONE ADMINISTERED PT W/ PATIENT REPORTED IMPROVEMENT OF PAIN.
--- NOTE | 2021-07-30 18:34 | NUR ---
SHIFT SUMMARY -LEVOPHED REMAINED OFF THROUGHOUT SHIFT W/ BP REMAINING STABLE. VANCO REGIMEN CONTINUED AT HALF THE RATE UNDER PHARMACY GUIDANCE AFTER -DISCUSSING W/ DR. SEGURA. -FLUIDS SWITCHED FROM NS TO D5% IN 0.45% NACL W/ 10MEQ POTASSIUM TO HELP HYPOGLYCEMIA; TF REMAINS AT BOLUS FEED SCHEDULE. -DR. RIZO CHANGED PEG TUBE AT BEDSIDE W/O COMPLICATION. -DISCUSSED STATUS CHANGE W/ DR. SEGURA; WILL REMAIN ICU STATUS THROUGH CORPORATE ASSOCIATE TONIGHT AND WILL REEVALUATE IN THE MORNING. -RECTAL TUBE PLACED TODAY D/T 4 BOWEL MOVEMENTS WITHIN 2-3 HOURS AND CHANGING TO MORE LIQUID. PATIENT WAS AWAKE AND ALERT THROUGHOUT SHIFT WITH PERIODIC NAPS. SHE WAS UP IN THE CHAIR FOR 2 HOURS TODAY AND ABLE TO STAND AND WALK A SHORT DISTANCE TO THE RECLINER W/ USE OF WALKER AND GAIT BELT. SPEECH IS IMPROVING W/ MORE WORDS BEING USED SUCH "I DON'T KNOW", "IT'S OK I GUESS", AND "THAT'S PERFECT, THANK YOU".
--- NOTE | 2021-07-30 19:36 | NUR ---
ASSUMED CARE REPORT RECEIVED FROM DAY SHIFT RN. PT IN BED, AWAKE AND ALERT, ANSWERS QUESTIONS WITH NODS HEAD YES AND NO. PT DENIES ANY PAIN OR DISCOMFORT AT THIS TIME. DONG CATHETER AND RECTAL TUBE IN PLACE. D51/2NSW/20MEQK INFUSING. NO DISTRESS NOTED. SEE SHIFT ASSESSMENT. WILL CONTINUE TO MONITOR.
--- NOTE | 2021-07-31 06:15 | NUR ---
SHIFT SUMMARY NO ACUTE EVENTS OVERNIGHT. PT REMAINS AAOX2, AT TIMES DOES BECOME CONFUSED. PT DOES NOT WANT O2 SATURATION PROBE ON. O2 SATURATION HAS BEEN IN 90S ON R.A. BP STABLE, NO HYPOTENSION, LEVOPHED OFF. NO PAIN OR DISCOMFORT NOTED. PT IN STABLE CONDITION. REPORT TO BE GIVEN TO DAY SHIFT RN.
--- NOTE | 2021-07-31 09:00 | NUR ---
Care Assumed 0700 Pt opens eyes, tracking, smiles, answers yes/no to simple questions, and following directions. Unable to state current event, location, or year. Nods no to knowing location. D5W 1/2NS KCL 10 mEq infusing via DUNIA extended dwell catheter. Rectal tube in place, liquid brown output. Temp wade in place with clear/yellow output. Peg tube, will provide bolus feeds per order. NSR 60's , BP stable, on RA. Core temp of 96.[address]. Call light within reach.
--- NOTE | 2021-07-31 11:07 | NUR ---
Provider Visit - Dr. Hernandez Provider at bedside and recieved new orders to transfer patient to medical floor with tele. Updated on patients vital signs and core temp of 96.1. Charge nurse made aware.
--- NOTE | 2021-07-31 13:16 | NUR ---
Report given to RM 354 Nurse Pt transfered to RM 354 via bed. All belongings sent with patient. Report given to HENRY Henry. All questions answered. VSS. NSR. Pt smiling and waving bye before leaving. Tracking with eyes and following directions.
[2021-07-31 13:58] LABS: Vancomycin, Trough 30.5 ug/mL (5.0-10.0)
--- NOTE | 2021-07-31 16:27 | NUR ---
SHIFT SUMMARY PATIENT TRANSFERRED TO MEDICAL FLOOR AT 1400. PATIENT IS ALERT AND ORIENTED X2. PATIENT INDICATES NO PAIN, NAUSEA, VOMITTING, SOB THIS SHIFT. NO ACUTE EVENTS THIS SHIFT. PATIENT HAS HAD PUMP FEEDING SET UP AND IS RUNNING CURRENTLY. VITAL SIGNS REVIEWED. CALL LIGHT IN PLACE. BED IN LOWEST POSTITION. WILL MONITOR UNTIL END OF SHIFT.
--- NOTE | 2021-08-01 04:26 | NUR ---
SHIFT SUMMARY PT AA&O TO SELF. AWAKE MOST OF THE SHIFT. V/S STABLE. DONG PATENT AND DRAINING LIGHT YELLOW URINE TO GRAVITY. PEG TUBE IN DUNIA PATENT. PT'S RECTAL TUBE WAS ACCIDENTALLY DISLODGED FROM RECTUM. A NEW RECTAL TUBE PLACED ON PT'S RECTUM WITH MILD DISCOMFORT. SCHEDULED MEDS ADMINISTERED PER EMAR. ADLS PROVIDED, SAFETY MEASURES IN PLACE. WILL CONTINUE TO MONITOR.
[2021-08-01 05:48] LABS: BASOPHILS ABSOLUTE AUTO 0.01 K/mm3 (0.00-0.23); BASOPHILS PERCENT AUTO 0 % (0-2); EOSINOPHILS ABSOLUTE AUTO 0.07 K/mm3 (0.00-0.68); EOSINOPHILS PERCENT AUTO 2 % (0-6); Hematocrit 32.8 % (33.0-51.0); Hemoglobin 10.9 g/dL (11.5-16.0); IMMATURE GRAN ABSOLUTE AUTO 0.02 K/mm3 (0.00-0.10); IMMATURE GRAN PERCENT AUTO 0 % (0-1); LYMPHOCYTES PERCENT AUTO 25 % (21-46); MONOCYTES ABSOLUTE AUTO 0.58 K/mm3 (0.16-1.47); MONOCYTES PERCENT AUTO 13 % (4-13); Mean Corpuscular HGB 30.1 pg (26.0-34.0); Mean Corpuscular HGB Conc 33.2 g/dL (31.5-36.5); Mean Corpuscular Volume 91 fL (80-100); Mean Platelet Volume 12.4 fL (9.1-12.4); NEUTROPHILS PERCENT AUTO 60 % (41-73); Platelet Count 100 K/mm3 (150-400); RDW Coefficient Variation 14.5 % (11.7-14.2); RDW Standard Deviation 47.7 fL (35.1-46.3); Red Blood Cell Count 3.62 M/mm3 (3.80-5.20); White Blood Cell Count 4.48 K/mm3 (4.00-11.30)
[2021-08-01 06:26] LABS: Anion Gap 6 mmol/L (6-16); Blood Urea Nitrogen 11 mg/dL (8-24); Bun/Creatinine Ratio 11.8 (12.0-20.0); CO2, Blood 27 mmol/L (21-32); Calcium, Blood 8.7 mg/dL (8.5-10.1); Chloride, Blood 111 mmol/L (98-108); Creatinine, Blood 0.93 mg/dL (0.40-1.00); Glomerular Filtration Rate >60 (60-); Glucose, Blood 117 mg/dL (70-99); Potassium, Blood 3.8 mmol/L (3.5-5.5); Sodium, Blood 144 mmol/L (136-145)
--- NOTE | 2021-08-01 17:13 | NUR ---
SHIFT SUMMARY PATIENT IS ALERT AND ORIENTED TO SELF ONLY. PATIENT HAS A DONG AND RECTAL TUBE IN PLACE AND BOTH ARE DRAINING TO GRAVITY. FEEDINGS HAVE BEEN DONE ACCORDING TO ORDER. PEG TUBE FLUSHED AND PATENT. ADLS PERFORMED. SAFETY MEASURES IN PLACE. VITAL SIGNS REVIEWED. WILL CONTINUE TO MONITOR UNTIL SHIFT CHANGE.
--- NOTE | 2021-08-02 04:43 | NUR ---
SHIFT SUMMARY PT AA&OX2. VSS ON THIS SHIFT. DONG PATENT AND DRAINING LIGHT YELLOW URINE TO GRAVITY. PEG TUBE PATENT. PT'S RECTAL TUBE DISCONTINUED PER DR. SEGURA'S ORDER. ADLS PROVIDED, SAFETY MEASURES IN PLACE. WILL CONTINUE TO MONITOR.
[2021-08-02] MEDS ORDERED: CIPR500 PO (09:55)
--- NOTE | 2021-08-02 11:59 | NUR ---
SHIFT SUMMARY PATIENT IS ALERT AND ORIENTED TO SELF. RESPONDS SAYING YES OR NO. NO ACUTE EVENTS THIS SHIFT. PATIENT HAS HAD DONG DCD, AND IV REMOVED. PATIENTS AND PATIENT VERBALLY UNDERSTOOD THE DISCHARGE INSTRUCTIONS. PATIENT WAS WHEELED OUT BY THIS RN TO PATIENTS VEHICLE.
--- NOTE | 2021-08-03 10:00 | NUR ---
I called and spoke with patient's this morning (On HIPP). He said she has been resting a lot. She currently uses a walker and a cane. They also received a shower chair and an elongated toilet seat. He stated she has had Home Health before and prefers [facility]. I have contacted Smitha with [facility]. I also scheduled the hospital f/u with Dr. Dewitt on July at 04:20 PM. The patient's said this time and date worked well for them.
--- NOTE | 2021-08-03 11:51 | NUR ---
Received referral from [facility] Flight Test Engineer (Domi Osorio) today- 08/03/2021. Patient was admitted to [facility] on 07/28/2021 due to seizures. Patient discharged over the weekend- 08/02/2021 with orders for home health. Per referral today, patient elected [facility]. As patient discharged over the weekend, this fiction and nonfiction prose writer did not contact patient at home to confirm the above. All supporting documentation for referral (face sheet, face to face, med list, H&P, discharge summary, and most recent PT notes) was sent to [facility] for review. No further interventions required. Smitha Caro Referral Liaison
== END 2021-08-02 11:42 | disposition home health service (06) | DRG 100 ==
LOC: ER 13:39 → ICUE 20:14 → PCU 20:14 → ER 21:45 → PCU 22:00 → ICUE 07-29 15:30 → MEDS 07-31 13:25
PROVIDERS: Internal Medicine; Pharmacist; Student in an Organized Health Care Education/Training Program; ADMIT Internal Medicine
PROC: 3E033XZ Introduction of Vasopressor into Peripheral Vein, Percutaneous Approach (ICD-10-PCS; 2021-07-29)
PROC: 0D20XUZ Change Feeding Device in Upper Intestinal Tract, External Approach (ICD-10-PCS; principal; 2021-07-30)
DX: G40.201 Localization-related (focal) (partial) symptomatic epilepsy and epileptic syndromes with complex partial seizures, not intractable, with status epilepticus (principal); A41.51 Sepsis due to Escherichia coli [E. coli]; G93.41 Metabolic encephalopathy; R65.21 Severe sepsis with septic shock; M79.7 Fibromyalgia; H54.40 Blindness, one eye, unspecified eye; I10 Essential (primary) hypertension; Z20.822 Contact with and (suspected) exposure to COVID-19; E16.2 Hypoglycemia, unspecified; R62.7 Adult failure to thrive; E86.0 Dehydration; E89.0 Postprocedural hypothyroidism; D69.6 Thrombocytopenia, unspecified; T36.8X5A Adverse effect of other systemic antibiotics, initial encounter; F41.8 Other specified anxiety disorders; Z88.1 Allergy status to other antibiotic agents; Z88.6 Allergy status to analgesic agent; Z88.0 Allergy status to penicillin; Z88.5 Allergy status to narcotic agent; Z88.8 Allergy status to other drugs, medicaments and biological substances; Z85.850 Personal history of malignant neoplasm of thyroid; Z85.42 Personal history of malignant neoplasm of other parts of uterus; Z87.820 Personal history of traumatic brain injury; Z87.440 Personal history of urinary (tract) infections; Z90.710 Acquired absence of both cervix and uterus; Z98.890 Other specified postprocedural states; Z79.899 Other long term (current) drug therapy; Z85.41 Personal history of malignant neoplasm of cervix uteri
CPT/HCPCS: 0241U; 36415; 51702; 70450; 71046; 80048; 80053; 80177; 80202; 81001; 81003; 82947; 83605; 83735; 84100; 84146; 84439; 84443; 84481; 85025; 87040; 87077; 87086; 87147; 87186; 92526; 92610; 94762; 95819; 96365; 96375; 97110; 97162; 97165; 97530; 99285-25; A9270; C1751; G0480; J0696; J1650; J1953; J2060; J2543; J3370; J7030; J7040; J7050; J7060

== ENCOUNTER 2021-08-08 09:19 | Emergency (ER) | payer MEDICARE, OTHER ==
[~2021-08-08] VITALS: Ht 165.1 cm; Wt 68.0 kg
[~2021-08-08 09:19] MED LIST changes: +CIPR500 PO; +CYCL10 PO; +DULO30 PO; +EUTHYROX50 MCG PO; +POTA20LUD PT
--- NOTE | 2021-08-08 17:10 | NUR ---
Called to meet with patient. Plan was to replace peg tube and treat pt hydration and assess for infection. Pt went home. Pt coversing face with hands nods yes and no to questions. pt denies pain nausea or shortnesss of breath. She denies pain. When asked if she was anxious or upset she nodded yes. Asked if she and her husbnds stressed with whats foing on in their lives she nodded yes. Asked her if she was cold she nodded yes. 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 Copies made review of documents show only financial documents no medical. He was very distrught by her not getting peg tube put back him. We hada careful review of her past few month most of it has been in the hospital at [facility] and here at [facility]. Advised we cannot hold her down and force iv or peg tube. We discussed hospice. He stated [facility] was out to do a assessment for home health. He was not open at first to hospice felt it was to soon. we spoke he stated to have some realizations. Pt is in his seventies and a [place] . He is frail and seems to be possibly some increasing confussion. She has a caregiver that helps him. Suggested we speak with dr tinajero pt is [facility] and sess him reagularly. states her thyroid has been hard to manage. states since last discharge she has declined mentally and emotionally. May n ot be a sfe discharge. Will get ethics consult. would consider hospice consult. Will follow up with phsycians plan.
== END 2021-08-08 18:12 | disposition home or self-care (01) ==
LOC: ER 09:19
DX: Z43.1 Encounter for attention to gastrostomy (principal); Z51.5 Encounter for palliative care
CPT/HCPCS: 43762; 72100; 99284-25

== ENCOUNTER 2021-08-09 10:30 | Observation (INO) | payer MEDICARE, OTHER ==
[~2021-08-09] VITALS: Ht 177.8 cm; Wt 58.0 kg
--- NOTE | 2021-08-09 11:39 | NUR ---
Pt returned to ER contacted by for support. He is gald she has agreed to peg. He loves her and not ready but they have had discussion about hospice and are reaching some acceptance that she may not return to her former baseline.
[2021-08-09 11:46] LABS: Influenza A, PCR NEGATIVE (NEGATIVE); Influenza B, PCR NEGATIVE (NEGATIVE); Resp Syncytial Virus, PCR NEGATIVE (NEGATIVE); SARS-Cov-2 (COVID-19) PCR, MMC NEGATIVE (NEGATIVE)
--- NOTE | 2021-08-09 13:59 | NUR ---
History, Chart, Medications and Allergies reviewed before start of procedure. Patient confirms NPO status and agrees with scheduled surgery. Pre-Op teaching done. Pt verbalizes understanding with head knod. pt at bedside to assist with answering questions and signing consent. reports that pt often has difficulty talking and communicating due to her head injury.
--- NOTE | 2021-08-09 14:00 | NUR ---
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 LR STARTED AND LEVAQUIN STARTED. Discharge instructions reviewed with patient. Patient verbalizes understanding. Copy given to patient to take home. History, Chart, Medications and Allergies reviewed before start of procedure. Lungs clear T/O to Auscultation. Pre-Op teaching done. Pt verbalizes understanding.
--- NOTE | 2021-08-09 14:19 | NUR ---
08/09/21 1419 Amina Dao History, Chart, Medications and Allergies reviewed before start of procedure. MONITOR INTACT WITH CONTINUOUS PULSE OXIMETRY AND INTERMITTENT BP. DR. PERLA DOING ANESTHESIA CARE. SEE PAPER FLOWSHEET.
--- NOTE | 2021-08-09 15:30 | NUR ---
Discharge instructions reviewed with patient. Patient'S verbalizes understanding. Copy given to patient to take home. Discharged via wheelchair to private car for ride home.
== END 2021-08-09 15:30 | disposition home or self-care (01) ==
LOC: ER 10:30 → SURS 10:31
PROVIDERS: Physician Assistant; ADMIT Surgery
PROC: 0DH63UZ Insertion of Feeding Device into Stomach, Percutaneous Approach (ICD-10-PCS; principal; 2021-08-09 13:30)
DX: K94.23 Gastrostomy malfunction (principal); R13.12 Dysphagia, oropharyngeal phase; E03.9 Hypothyroidism, unspecified; I10 Essential (primary) hypertension; Y73.8 Miscellaneous gastroenterology and urology devices associated with adverse incidents, not elsewhere classified; Z87.891 Personal history of nicotine dependence; Z20.822 Contact with and (suspected) exposure to COVID-19
CPT/HCPCS: 0241U; 93005; 93010; J1956; J2704; J7120

== ENCOUNTER 2021-09-08 12:28 | Inpatient (IN) | payer MEDICARE, OTHER ==
[~2021-09-08] VITALS: Ht 165.1 cm; Wt 60.2 kg
[~2021-09-08 12:28] MED LIST changes: -CYCL10 PO; +Cyclobenzaprine5 MG PO; -EUTHYROX50 MCG PO; +LEVSOD112 PO
[2021-09-08 13:28] LABS: Source, Urine Catheter
[2021-09-08 13:35] LABS: BASOPHILS PERCENT AUTO 0 % (0-2); EOSINOPHILS ABSOLUTE AUTO 0.03 K/mm3 (0.00-0.68); EOSINOPHILS PERCENT AUTO 1 % (0-6); Hematocrit 35.4 % (33.0-51.0); Hemoglobin 11.8 g/dL (11.5-16.0); IMMATURE GRAN ABSOLUTE AUTO 0.01 K/mm3 (0.00-0.10); IMMATURE GRAN PERCENT AUTO 0 % (0-1); LYMPHOCYTES ABSOLUTE AUTO 1.05 K/mm3 (0.84-5.20); LYMPHOCYTES PERCENT AUTO 30 % (21-46); MONOCYTES ABSOLUTE AUTO 0.33 K/mm3 (0.16-1.47); MONOCYTES PERCENT AUTO 9 % (4-13); Mean Corpuscular HGB Conc 33.3 g/dL (31.5-36.5); Mean Corpuscular Volume 87 fL (80-100); Mean Platelet Volume 12.3 fL (9.1-12.4); NEUTROPHILS ABSOLUTE AUTO 2.09 K/mm3 (1.96-9.15); NEUTROPHILS PERCENT AUTO 60 % (41-73); Platelet Count 80 K/mm3 (150-400); RDW Coefficient Variation 14.7 % (11.7-14.2); RDW Standard Deviation 45.2 fL (35.1-46.3); Red Blood Cell Count 4.07 M/mm3 (3.80-5.20); White Blood Cell Count 3.51 K/mm3 (4.00-11.30)
[2021-09-08 13:41] LABS: Appearance, Urine Hazy (Clear); Bilirubin, Urine Neg (Neg); Blood, Urine 5+ (Neg); Color, Urine Yellow (P-Yellow); Glucose Qualitative, Urine Neg (Neg); Ketones, Urine Neg (Neg); Leukocyte Esterase, Urine 3+ (Neg); Nitrite, Urine Neg (Neg); Protein, Urine 1+ (Neg); Urobilinogen, Urine NORM (Normal)
[2021-09-08 13:45] LABS: Albumin, Blood 3.4 g/dL (3.4-5.0); Albumin/Globulin Ratio 0.7 (0.8-1.8); Bilirubin, Total 0.7 mg/dL (0.1-1.0); Bun/Creatinine Ratio 29.1 (12.0-20.0); Calcium, Blood 9.7 mg/dL (8.5-10.1); Creatinine, Blood 1.27 mg/dL (0.40-1.00); Globulin, Blood 4.7 g/dL (2.2-4.0); Potassium, Blood 4.2 mmol/L (3.5-5.5); Total Protein, Blood 8.1 g/dL (6.4-8.2)
[2021-09-08 13:52] LABS: Hyaline Casts 0-2 /lpf (0-2)
[2021-09-08 13:55] LABS: Red Blood Cells, Urine 50-100 /hpf (0-2)
[2021-09-08 13:56] LABS: Bacteria Mod /hpf; Squamous Epithelial Cells Few /hpf (Few); Transitional Epithelial Cells Few /hpf (0-Rare)
[2021-09-08 16:03] LABS: Free Thyroxine 1.72 ng/dL (0.70-1.60); Thyroid Stimulating Hormone 0.012 uIU/mL (0.360-4.800); Triiodothyronine, Free 3.25 pg/mL (2.18-3.98)
[2021-09-09 05:07] LABS: BASOPHILS PERCENT AUTO 0 % (0-2); EOSINOPHILS ABSOLUTE AUTO 0.03 K/mm3 (0.00-0.68); EOSINOPHILS PERCENT AUTO 1 % (0-6); Hematocrit 29.8 % (33.0-51.0); Hemoglobin 9.8 g/dL (11.5-16.0); IMMATURE GRAN PERCENT AUTO 0 % (0-1); LYMPHOCYTES ABSOLUTE AUTO 0.96 K/mm3 (0.84-5.20); LYMPHOCYTES PERCENT AUTO 40 % (21-46); MONOCYTES PERCENT AUTO 12 % (4-13); Mean Corpuscular HGB 29.3 pg (26.0-34.0); Mean Corpuscular HGB Conc 32.9 g/dL (31.5-36.5); Mean Corpuscular Volume 89 fL (80-100); Mean Platelet Volume 12.8 fL (9.1-12.4); NEUTROPHILS ABSOLUTE AUTO 1.13 K/mm3 (1.96-9.15); NEUTROPHILS PERCENT AUTO 47 % (41-73); Platelet Count 65 K/mm3 (150-400); RDW Coefficient Variation 14.8 % (11.7-14.2); RDW Standard Deviation 46.3 fL (35.1-46.3); Red Blood Cell Count 3.35 M/mm3 (3.80-5.20); White Blood Cell Count 2.42 K/mm3 (4.00-11.30)
[2021-09-09 06:27] LABS: Albumin, Blood 2.7 g/dL (3.4-5.0); Albumin/Globulin Ratio 0.7 (0.8-1.8); Bilirubin, Total 0.5 mg/dL (0.1-1.0); Bun/Creatinine Ratio 26.9 (12.0-20.0); Calcium, Blood 8.8 mg/dL (8.5-10.1); Creatinine, Blood 1.08 mg/dL (0.40-1.00); Globulin, Blood 3.7 g/dL (2.2-4.0); Potassium, Blood 4.2 mmol/L (3.5-5.5); Thyroid Stimulating Hormone 0.01 uIU/mL (0.360-4.800); Total Protein, Blood 6.4 g/dL (6.4-8.2)
--- NOTE | 2021-09-09 06:58 | NUR ---
09/08 1845 ADMIT FROM ED VIA STRETCHER TO BED SLIDE TX. PT ALERT TO SELF, PLACE AND CIRCUMSTANCE. ORIENTED TO ROOM SETUP, CALL LIGHT AND SAFETY, AGREES TO NOT GET UP UNATTENDED. BED ALARM SET. CHECKED SKIN, NO BREAKDOWN ON BACKSIDE. ATTENDS IN PLACE.
--- NOTE | 2021-09-09 18:33 | NUR ---
SUMMARY- PT ALERT TO SELF ONLY. NO STM. PT IS ALERT AND SMILES AT YOU, NODS YES AND NO. SAYS A WORD ONCE IN A WHILE. AWAKE AND ALERT MOST OF THE DAY. WORKED WITH PT AND OT. AMBULATED A FEW STEPS WITH PT. TUBE FEEDS TO GOAL AND CONT IVF INFUSING. INCONT BLADDER WITH ATTENDS. DEPENDANT IN CARE, TURNED ROUTINE. FEEDS SELF PUREE BITES AT MEALS WITH SET UP. DR JIMENEZ IN THIS AM AND WANTED TO CONT IVF TONIGHT. LIKELY DC TOMORROW ON PO ABX. [phone] THEY WILL CALL TOMORROW. WILL REPORT ALL TO NOC RN.
[2021-09-10 04:56] LABS: Hematocrit 30.6 % (33.0-51.0); Mean Corpuscular HGB 29.2 pg (26.0-34.0); Mean Corpuscular HGB Conc 32.7 g/dL (31.5-36.5); Mean Corpuscular Volume 89 fL (80-100); Mean Platelet Volume 12.5 fL (9.1-12.4); Platelet Count 62 K/mm3 (150-400); RDW Standard Deviation 46.8 fL (35.1-46.3); Red Blood Cell Count 3.43 M/mm3 (3.80-5.20); White Blood Cell Count 2.54 K/mm3 (4.00-11.30)
[2021-09-10 05:48] LABS: BAND PERCENT MAN 11 % (0-8); BASOPHILS PERCENT MAN 0 % (0-2); EOSINOPHILS PERCENT MAN 0 % (0-6); LYMPHOCYTES PERCENT MAN 24 % (21-46); MONOCYTES PERCENT MAN 8 % (4-13); NEUTROPHILS ABSOLUTE MAN 1.72 K/mm3 (1.96-9.15); SEG NEUTROPHILS PERCENT MAN 57 % (41-73); TOTAL CELLS COUNTED 100
[2021-09-10 06:28] LABS: Alanine Aminotransfer (ALT/SGP 50 U/L (12-78); Albumin, Blood 2.8 g/dL (3.4-5.0); Albumin/Globulin Ratio 0.8 (0.8-1.8); Alk Phos 80 U/L (50-136); Anion Gap 6 mmol/L (6-16); Aspartate Aminotrans (AST/SGOT 36 U/L (12-37); Bilirubin, Total 0.5 mg/dL (0.1-1.0); Blood Urea Nitrogen 17 mg/dL (8-24); Bun/Creatinine Ratio 21.5 (12.0-20.0); CO2, Blood 25 mmol/L (21-32); Chloride, Blood 113 mmol/L (98-108); Creatinine, Blood 0.79 mg/dL (0.40-1.00); Globulin, Blood 3.7 g/dL (2.2-4.0); Glomerular Filtration Rate >60 (60-); Glucose, Blood 87 mg/dL (70-99); Potassium, Blood 4.1 mmol/L (3.5-5.5); Sodium, Blood 144 mmol/L (136-145); Total Protein, Blood 6.5 g/dL (6.4-8.2)
--- NOTE | 2021-09-10 06:48 | NUR ---
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 Tolerated tube feed with less than 60 ml residual. No abd pain or nausea. Cleared by speech therapy for pureed diet with small amt of pureed food taken for pleasure. , Spouse Arian in yesterday & Caregiver also in to visit. PT is incont of bowel & bladder with large amts of urine incont several times. nonverbal except for occasional single word. Room air no cough.
--- NOTE | 2021-09-10 18:21 | NUR ---
SHIFT SUMMARY PT UP TO RECLINER CHAIR BEFORE LUNCH. ATTEMPTED TO PUT HER BACK TO BED THIS AFTERNOON BUT SHE SHOOK HER HEAD NO. ASSISTED HER TO BSC AND PT VOIDED REMAINING DRY UNTIL LATER THIS EVENING. FEEDING SELF SUPPER. SMILING AND MAKING EYE CONTACT WHIL IN CHAIR AND GRABBING FOR HAND OF STAFF.
--- NOTE | 2021-09-11 04:24 | NUR ---
SHIFT SUMMARY PT AOX2 AND SITTING IN THE CHAIR EATING DINNER AT THE START OF THIS SHIFT. PT IS NONVERBAL BUT ABLE TO COMMUNICATE NEEDED TO MAKE NEEDS KNOWN. PT HAS A NEW ORDER FOR LIQUID KEPPRA AND TOLERATED IT WELL. PT. WAS ABLE TO REST THIS SHIFT WITH RISE AND FALL OF CHEST. PT. STILL RESTING IN BED AND THIS NURSE WILL CONTINUE TO MONITOR UNTIL REPORT IS GIVEN.
[2021-09-11 04:38] LABS: BASOPHILS PERCENT AUTO 0 % (0-2); EOSINOPHILS ABSOLUTE AUTO 0.06 K/mm3 (0.00-0.68); EOSINOPHILS PERCENT AUTO 2 % (0-6); Hematocrit 28.5 % (33.0-51.0); Hemoglobin 9.1 g/dL (11.5-16.0); IMMATURE GRAN ABSOLUTE AUTO 0.01 K/mm3 (0.00-0.10); IMMATURE GRAN PERCENT AUTO 0 % (0-1); LYMPHOCYTES ABSOLUTE AUTO 0.87 K/mm3 (0.84-5.20); LYMPHOCYTES PERCENT AUTO 34 % (21-46); MONOCYTES ABSOLUTE AUTO 0.31 K/mm3 (0.16-1.47); MONOCYTES PERCENT AUTO 12 % (4-13); Mean Corpuscular HGB 28.8 pg (26.0-34.0); Mean Corpuscular HGB Conc 31.9 g/dL (31.5-36.5); Mean Corpuscular Volume 90 fL (80-100); Mean Platelet Volume 12.6 fL (9.1-12.4); NEUTROPHILS ABSOLUTE AUTO 1.33 K/mm3 (1.96-9.15); NEUTROPHILS PERCENT AUTO 52 % (41-73); Platelet Count 58 K/mm3 (150-400); RDW Coefficient Variation 15.3 % (11.7-14.2); RDW Standard Deviation 48.3 fL (35.1-46.3); Red Blood Cell Count 3.16 M/mm3 (3.80-5.20); White Blood Cell Count 2.58 K/mm3 (4.00-11.30)
[2021-09-11 05:37] LABS: Alanine Aminotransfer (ALT/SGP 49 U/L (12-78); Albumin, Blood 2.6 g/dL (3.4-5.0); Albumin/Globulin Ratio 0.7 (0.8-1.8); Alk Phos 76 U/L (50-136); Anion Gap 5 mmol/L (6-16); Aspartate Aminotrans (AST/SGOT 39 U/L (12-37); Bilirubin, Total 0.3 mg/dL (0.1-1.0); Blood Urea Nitrogen 17 mg/dL (8-24); Bun/Creatinine Ratio 21.2 (12.0-20.0); CO2, Blood 27 mmol/L (21-32); Calcium, Blood 8.6 mg/dL (8.5-10.1); Chloride, Blood 113 mmol/L (98-108); Globulin, Blood 3.5 g/dL (2.2-4.0); Glomerular Filtration Rate >60 (60-); Glucose, Blood 88 mg/dL (70-99); Potassium, Blood 3.9 mmol/L (3.5-5.5); Sodium, Blood 145 mmol/L (136-145); Total Protein, Blood 6.1 g/dL (6.4-8.2)
--- NOTE | 2021-09-11 12:45 | NUR ---
DISCHARGE INSTRUCTIONS COMPLETED AND DISCUSSED WITH PTS . QUESTIONS ANSWERED AND PT TO CURB VIA W/C.
--- NOTE | 2021-09-11 16:33 | NUR ---
Patient is a [facility] patient who was transferred to [facility] on 09/08/2021 due to toxic metabolic encephalopathy. Patient discharged today- 09/11/2021 with resumption of home health orders. Gathered supporting documentation for resumption (face sheet, discharge order, med list, and H&P) and faxed to [facility] for review. No further interventions required. Smitha Caro Referral Liaison
[2021-09-13 15:07] LABS: HEPARIN INDUCED PLATELET AB 0.085 OD (0.000-0.400)
--- NOTE | 2021-09-14 13:46 | NUR ---
Per Dr. Mcginnis on 09/11/2021, patient was appropriate for discharge and safe to discharge home with her . Barriers to discharge denied.
== END 2021-09-11 12:30 | disposition home health service (06) | DRG 100 ==
LOC: ER 12:28 → MEDS 17:12 → ER 17:12 → ERHOLD 17:12 → MEDS 18:33
PROVIDERS: Hospitalist; Student in an Organized Health Care Education/Training Program; ADMIT Internal Medicine
DX: G40.909 Epilepsy, unspecified, not intractable, without status epilepticus (principal); G92.8 Other toxic encephalopathy; N17.9 Acute kidney failure, unspecified; N39.0 Urinary tract infection, site not specified; E78.5 Hyperlipidemia, unspecified; F41.9 Anxiety disorder, unspecified; Z88.8 Allergy status to other drugs, medicaments and biological substances; Z88.0 Allergy status to penicillin; Z20.822 Contact with and (suspected) exposure to COVID-19; Z88.5 Allergy status to narcotic agent; E03.9 Hypothyroidism, unspecified; Z98.890 Other specified postprocedural states; Z90.710 Acquired absence of both cervix and uterus; Z87.891 Personal history of nicotine dependence; Z79.899 Other long term (current) drug therapy; Z88.1 Allergy status to other antibiotic agents; D75.82 Heparin induced thrombocytopenia (HIT); M79.7 Fibromyalgia; F32.9 Major depressive disorder, single episode, unspecified; H54.62 Unqualified visual loss, left eye, normal vision right eye; E86.0 Dehydration
CPT/HCPCS: 36415; 51701; 80053; 80177; 81001; 82947; 83690; 83735; 84100; 84439; 84443; 84481; 85025; 86022; 87086; 92610; 93005; 93010; 96365-59; 96366-59; 97161; 97166; 97530; 97535; 99285-25; A9270; J1650; J1953; J1956; J7030

== ENCOUNTER 2021-09-15 16:11 | Emergency (ER) | payer MEDICARE, OTHER ==
[~2021-09-15] VITALS: Ht 165.1 cm; Wt 61.2 kg
[2021-09-15 19:40] LABS: Anion Gap 3 mmol/L (6-16); Blood Urea Nitrogen 25 mg/dL (8-24); Bun/Creatinine Ratio 34.9 (12.0-20.0); CO2, Blood 28 mmol/L (21-32); Calcium, Blood 8.7 mg/dL (8.5-10.1); Chloride, Blood 104 mmol/L (98-108); Creatinine, Blood 0.72 mg/dL (0.40-1.00); Glomerular Filtration Rate >60 (60-); Glucose, Blood 98 mg/dL (70-99); Potassium, Blood 4.5 mmol/L (3.5-5.5); Sodium, Blood 135 mmol/L (136-145)
[2021-09-15 19:45] LABS: BASOPHILS PERCENT AUTO 0 % (0-2); EOSINOPHILS ABSOLUTE AUTO 0.07 K/mm3 (0.00-0.68); EOSINOPHILS PERCENT AUTO 2 % (0-6); Hematocrit 28.9 % (33.0-51.0); Hemoglobin 9.8 g/dL (11.5-16.0); IMMATURE GRAN ABSOLUTE AUTO 0.02 K/mm3 (0.00-0.10); IMMATURE GRAN PERCENT AUTO 0 % (0-1); LYMPHOCYTES ABSOLUTE AUTO 0.85 K/mm3 (0.84-5.20); LYMPHOCYTES PERCENT AUTO 18 % (21-46); MONOCYTES ABSOLUTE AUTO 0.51 K/mm3 (0.16-1.47); MONOCYTES PERCENT AUTO 11 % (4-13); Mean Corpuscular HGB 29.8 pg (26.0-34.0); Mean Corpuscular HGB Conc 33.9 g/dL (31.5-36.5); Mean Corpuscular Volume 88 fL (80-100); NEUTROPHILS PERCENT AUTO 70 % (41-73); RDW Coefficient Variation 15.3 % (11.7-14.2); RDW Standard Deviation 47.5 fL (35.1-46.3); Red Blood Cell Count 3.29 M/mm3 (3.80-5.20); White Blood Cell Count 4.75 K/mm3 (4.00-11.30)
[2021-09-15 19:46] LABS: Mean Platelet Volume 12.7 fL (9.1-12.4)
[2021-09-15 20:01] LABS: Platelet Count 64 K/mm3 (150-400)
[2022-01-02] MEDS ORDERED: Cipro500 MG PO (18:24)
== END 2021-09-15 20:37 | disposition home or self-care (01) ==
LOC: ER 16:11
PROVIDERS: Emergency Medicine
DX: R53.1 Weakness (principal); Z88.8 Allergy status to other drugs, medicaments and biological substances; Z88.6 Allergy status to analgesic agent; Z88.0 Allergy status to penicillin; Z88.5 Allergy status to narcotic agent; Z79.899 Other long term (current) drug therapy; E03.9 Hypothyroidism, unspecified; I10 Essential (primary) hypertension; Z87.891 Personal history of nicotine dependence
CPT/HCPCS: 36415; 71045; 80048; 85025; 99284-25

== ENCOUNTER 2021-09-25 10:58 | Emergency (ER) | payer MEDICARE, OTHER ==
[~2021-09-25] VITALS: Ht 162.6 cm; Wt 49.9 kg
[2021-09-25 12:00] LABS: BASOPHILS ABSOLUTE AUTO 0.01 K/mm3 (0.00-0.23); BASOPHILS PERCENT AUTO 0 % (0-2); EOSINOPHILS ABSOLUTE AUTO 0.03 K/mm3 (0.00-0.68); EOSINOPHILS PERCENT AUTO 1 % (0-6); Hematocrit 29.2 % (33.0-51.0); Hemoglobin 9.3 g/dL (11.5-16.0); IMMATURE GRAN ABSOLUTE AUTO 0.01 K/mm3 (0.00-0.10); IMMATURE GRAN PERCENT AUTO 0 % (0-1); LYMPHOCYTES ABSOLUTE AUTO 1.08 K/mm3 (0.84-5.20); LYMPHOCYTES PERCENT AUTO 19 % (21-46); MONOCYTES ABSOLUTE AUTO 0.51 K/mm3 (0.16-1.47); MONOCYTES PERCENT AUTO 9 % (4-13); Mean Corpuscular HGB 29.5 pg (26.0-34.0); Mean Corpuscular HGB Conc 31.8 g/dL (31.5-36.5); Mean Corpuscular Volume 93 fL (80-100); Mean Platelet Volume 11.1 fL (9.1-12.4); NEUTROPHILS ABSOLUTE AUTO 4.19 K/mm3 (1.96-9.15); NEUTROPHILS PERCENT AUTO 72 % (41-73); Platelet Count 239 K/mm3 (150-400); RDW Coefficient Variation 15.7 % (11.7-14.2); RDW Standard Deviation 51.2 fL (35.1-46.3); Red Blood Cell Count 3.15 M/mm3 (3.80-5.20); White Blood Cell Count 5.83 K/mm3 (4.00-11.30)
[2021-09-25 12:07] LABS: Albumin, Blood 2.7 g/dL (3.4-5.0); Albumin/Globulin Ratio 0.6 (0.8-1.8); Bilirubin, Total 0.4 mg/dL (0.1-1.0); Bun/Creatinine Ratio 28.3 (12.0-20.0); Calcium, Blood 9.4 mg/dL (8.5-10.1); Creatinine, Blood 0.96 mg/dL (0.40-1.00); Globulin, Blood 4.3 g/dL (2.2-4.0); Potassium, Blood 4.5 mmol/L (3.5-5.5)
[2021-09-25] MEDS ORDERED: NARCAN4 M1 (12:33)
== END 2021-09-25 13:50 | disposition home or self-care (01) ==
LOC: ER 10:58
PROVIDERS: Emergency Medicine
DX: T40.601A Poisoning by unspecified narcotics, accidental (unintentional), initial encounter (principal); R06.03 Acute respiratory distress; I10 Essential (primary) hypertension; E03.9 Hypothyroidism, unspecified; Z88.1 Allergy status to other antibiotic agents; Z88.6 Allergy status to analgesic agent; Z88.0 Allergy status to penicillin; Z88.5 Allergy status to narcotic agent; Z88.8 Allergy status to other drugs, medicaments and biological substances; Z79.899 Other long term (current) drug therapy
CPT/HCPCS: 36415; 70450; 71045; 80053; 85025

== ENCOUNTER → 2021-10-07 | Outpatient (CLI) | payer MEDICARE, OTHER ==
[~2021-10-07] MED LIST changes: +NARCAN4 M1
== END | disposition home or self-care (01) ==
LOC: LAB SHORT 08:13
DX: D22.5 Melanocytic nevi of trunk (principal); L82.1 Other seborrheic keratosis
CPT/HCPCS: 88305

== ENCOUNTER 2022-01-05 15:27 | Emergency (ER) | payer MEDICARE, OTHER ==
[~2022-01-05] VITALS: Ht 165.1 cm; Wt 72.6 kg
[~2022-01-05 15:27] MED LIST changes: +Cipro500 MG PO
[2022-01-05 16:16] LABS: BASOPHILS ABSOLUTE AUTO 0.01 K/mm3 (0.00-0.23); BASOPHILS PERCENT AUTO 0 % (0-2); EOSINOPHILS PERCENT AUTO 2 % (0-6); Hematocrit 28.6 % (33.0-51.0); Hemoglobin 9.3 g/dL (11.5-16.0); IMMATURE GRAN ABSOLUTE AUTO 0.01 K/mm3 (0.00-0.10); IMMATURE GRAN PERCENT AUTO 0 % (0-1); LYMPHOCYTES ABSOLUTE AUTO 1.54 K/mm3 (0.84-5.20); LYMPHOCYTES PERCENT AUTO 33 % (21-46); MONOCYTES ABSOLUTE AUTO 0.63 K/mm3 (0.16-1.47); MONOCYTES PERCENT AUTO 14 % (4-13); Mean Corpuscular HGB 29.3 pg (26.0-34.0); Mean Corpuscular HGB Conc 32.5 g/dL (31.5-36.5); Mean Corpuscular Volume 90 fL (80-100); Mean Platelet Volume 11.5 fL (9.1-12.4); NEUTROPHILS ABSOLUTE AUTO 2.34 K/mm3 (1.96-9.15); NEUTROPHILS PERCENT AUTO 51 % (41-73); Platelet Count 157 K/mm3 (150-400); Red Blood Cell Count 3.17 M/mm3 (3.80-5.20); White Blood Cell Count 4.63 K/mm3 (4.00-11.30)
[2022-01-05 16:27] LABS: Source, Urine Clean Catch
[2022-01-05 16:31] LABS: Appearance, Urine Cloudy (Clear); Bilirubin, Urine Neg (Neg); Blood, Urine 3+ (Neg); Color, Urine Yellow (P-Yellow); Glucose Qualitative, Urine Neg (Neg); Ketones, Urine Neg (Neg); Leukocyte Esterase, Urine 3+ (Neg); Nitrite, Urine Neg (Neg); Protein, Urine 2+ (Neg); Urobilinogen, Urine 1+ (Normal); pH, Urine 6.5 (5.0-8.0)
[2022-01-05 16:39] LABS: Alanine Aminotransfer (ALT/SGP 48 U/L (12-78); Albumin, Blood 2.7 g/dL (3.4-5.0); Albumin/Globulin Ratio 0.6 (0.8-1.8); Alk Phos 80 U/L (50-136); Anion Gap 3 mmol/L (6-16); Aspartate Aminotrans (AST/SGOT 22 U/L (12-37); Bilirubin, Total 0.4 mg/dL (0.1-1.0); Blood Urea Nitrogen 27 mg/dL (8-24); Bun/Creatinine Ratio 36.4 (12.0-20.0); CO2, Blood 32 mmol/L (21-32); Calcium, Blood 8.4 mg/dL (8.5-10.1); Chloride, Blood 104 mmol/L (98-108); Creatinine, Blood 0.74 mg/dL (0.40-1.00); Globulin, Blood 4.3 g/dL (2.2-4.0); Glomerular Filtration Rate >60 (60-); Glucose, Blood 111 mg/dL (70-99); Sodium, Blood 139 mmol/L (136-145)
[2022-01-05 16:44] LABS: Bacteria Many /hpf; Red Blood Cells, Urine TNTC /hpf (0-2); Squamous Epithelial Cells Many /hpf (Few); Transitional Epithelial Cells Few /hpf (0-Rare); White Blood Cells, Urine TNTC /hpf (0-5)
== END 2022-01-05 18:23 | disposition home or self-care (01) ==
LOC: ER 15:27
PROVIDERS: Physician Assistant
DX: N39.0 Urinary tract infection, site not specified (principal); Z88.8 Allergy status to other drugs, medicaments and biological substances; Z88.6 Allergy status to analgesic agent; Z88.0 Allergy status to penicillin; Z88.5 Allergy status to narcotic agent; Z79.899 Other long term (current) drug therapy; E03.9 Hypothyroidism, unspecified; I10 Essential (primary) hypertension
CPT/HCPCS: 71045; 80053; 81001; 83605; 84484; 85025; 87077; 87086; 87186; 93005; 93010; 99285-25; J7030; P9612

== ENCOUNTER → 2022-05-10 | Outpatient (CLI) | payer MEDICARE, OTHER | END | disposition home or self-care (01) | LOC: LAB 12:33 → LAB SHORT 12:33 | DX: N39.0 Urinary tract infection, site not specified (principal) | CPT/HCPCS: 87077; 87086; 87186 ==

== ENCOUNTER → 2022-05-17 | Outpatient (CLI) | payer MEDICARE, OTHER | END | disposition home or self-care (01) | LOC: LAB 11:09 → LAB SHORT 11:09 | DX: N39.0 Urinary tract infection, site not specified (principal) | CPT/HCPCS: 87077; 87086; 87186 ==

== ENCOUNTER 2023-03-07 12:33 | Emergency (ER) | payer MEDICARE, OTHER ==
[~2023-03-07] VITALS: Ht 165.1 cm; Wt 72.6 kg
[2023-03-07] MEDS ORDERED: ESTRADIOL1 M1 PO (13:02)
[2023-03-07 13:10] LABS: BASOPHILS ABSOLUTE AUTO 0.01 K/mm3 (0.00-0.23); BASOPHILS PERCENT AUTO 0 % (0-2); EOSINOPHILS PERCENT AUTO 0 % (0-6); Hematocrit 37.5 % (33.0-51.0); Hemoglobin 12.3 g/dL (11.5-16.0); IMMATURE GRAN ABSOLUTE AUTO 0.04 K/mm3 (0.00-0.10); IMMATURE GRAN PERCENT AUTO 0 % (0-1); LYMPHOCYTES PERCENT AUTO 9 % (21-46); MONOCYTES ABSOLUTE AUTO 0.79 K/mm3 (0.16-1.47); MONOCYTES PERCENT AUTO 9 % (4-13); Mean Corpuscular HGB 29.9 pg (26.0-34.0); Mean Corpuscular HGB Conc 32.8 g/dL (31.5-36.5); Mean Corpuscular Volume 91 fL (80-100); Mean Platelet Volume 12.6 fL (9.1-12.4); NEUTROPHILS ABSOLUTE AUTO 7.46 K/mm3 (1.96-9.15); NEUTROPHILS PERCENT AUTO 82 % (41-73); Platelet Count 127 K/mm3 (150-400); RDW Coefficient Variation 13.8 % (11.7-14.2); RDW Standard Deviation 45.1 fL (35.1-46.3); Red Blood Cell Count 4.12 M/mm3 (3.80-5.20)
[2023-03-07 13:27] LABS: Albumin, Blood 2.7 g/dL (3.4-5.0); Albumin/Globulin Ratio 0.7 (0.8-1.8); Bilirubin, Total 0.5 mg/dL (0.1-1.0); Bun/Creatinine Ratio 33.9 (12.0-20.0); Creatinine, Blood 1.12 mg/dL (0.40-1.00); Potassium, Blood 3.4 mmol/L (3.5-5.5); Total Protein, Blood 6.7 g/dL (6.4-8.2)
[2023-03-07 14:15] VITALS: BP 92/77
[2023-03-07 16:45] LABS: Source, Urine Foley catheter
[2023-03-07 17:18] LABS: Appearance, Urine Cloudy (Clear); Bilirubin, Urine Neg (Neg); Blood, Urine 2+ (Neg); Color, Urine Yellow (P-Yellow); Glucose Qualitative, Urine Neg (Neg); Ketones, Urine Neg (Neg); Leukocyte Esterase, Urine 3+ (Neg); Nitrite, Urine Pos (Neg); Protein, Urine 2+ (Neg); Urobilinogen, Urine NORM (Normal)
[2023-03-07 17:41] LABS: Bacteria Many /hpf; Mucus Light (0-Heavy); Squamous Epithelial Cells Mod /hpf (Few); Transitional Epithelial Cells Mod /hpf (0-Rare); White Blood Cells, Urine TNTC /hpf (0-5)
== END 2023-03-07 18:22 | disposition home or self-care (01) ==
LOC: ER 12:33
PROVIDERS: Emergency Medicine
DX: E86.0 Dehydration (principal); E87.1 Hypo-osmolality and hyponatremia; I95.9 Hypotension, unspecified; E03.9 Hypothyroidism, unspecified; I10 Essential (primary) hypertension; Z88.0 Allergy status to penicillin; Z88.5 Allergy status to narcotic agent; Z88.8 Allergy status to other drugs, medicaments and biological substances; Z79.890 Hormone replacement therapy; Z79.899 Other long term (current) drug therapy; Z87.820 Personal history of traumatic brain injury
CPT/HCPCS: 36415; 51701; 71045; 74177; 80053; 81001; 83605; 85025; 96360-59; 96361-59; 99285-25; J7030; Q9967

== ENCOUNTER 2023-03-30 10:26 | Emergency (ER) | payer MEDICARE, OTHER ==
[~2023-03-30] VITALS: Ht 172.7 cm; Wt 68.0 kg
[~2023-03-30 10:26] MED LIST changes: +ESTRADIOL1 M1 PO
[2023-03-30 11:00] LABS: Source, Urine Straight Cath
[2023-03-30 11:02] LABS: Base Excess Venous 4.2 mmol/L; Bicarbonate Venous 28.1 mmol/L (24.0-30.0); PCO2 Venous 37.8 mmHg (38-42); pH Blood Venous 7.48 (7.34-7.37)
[2023-03-30 11:15] LABS: Hematocrit 28.7 % (33.0-51.0); Hemoglobin 9.5 g/dL (11.5-16.0); Mean Corpuscular HGB 29.4 pg (26.0-34.0); Mean Corpuscular HGB Conc 33.1 g/dL (31.5-36.5); Mean Corpuscular Volume 89 fL (80-100); Mean Platelet Volume 12.7 fL (9.1-12.4); Platelet Count 99 K/mm3 (150-400); RDW Coefficient Variation 14.7 % (11.7-14.2); RDW Standard Deviation 46.5 fL (35.1-46.3); Red Blood Cell Count 3.23 M/mm3 (3.80-5.20); White Blood Cell Count 2.49 K/mm3 (4.00-11.30)
[2023-03-30 11:17] LABS: Bilirubin, Urine Neg (Neg); Blood, Urine 1+ (Neg); Glucose Qualitative, Urine Neg (Neg); Ketones, Urine Neg (Neg); Leukocyte Esterase, Urine Neg (Neg); Nitrite, Urine Neg (Neg); Protein, Urine Neg (Neg); Specific Gravity, Urine 1.015 (1.003-1.022); Urobilinogen, Urine NORM (Normal)
[2023-03-30 11:30] LABS: Appearance, Urine Hazy (Clear); Color, Urine Yellow (P-Yellow)
[2023-03-30 11:31] LABS: Albumin, Blood 2.4 g/dL (3.4-5.0); Albumin/Globulin Ratio 0.6 (0.8-1.8); Bacteria Few /hpf; Bilirubin, Direct 0.1 mg/dL (0.0-0.3); Bilirubin, Indirect 0.3 mg/dL (0.1-0.7); Bilirubin, Total 0.4 mg/dL (0.1-1.0); Bun/Creatinine Ratio 27.9 (12.0-20.0); Calcium, Blood 8.4 mg/dL (8.5-10.1); Creatinine, Blood 0.72 mg/dL (0.40-1.00); Globulin, Blood 3.9 g/dL (2.2-4.0); Magnesium, Blood 1.7 mg/dL (1.6-2.4); Squamous Epithelial Cells Many /hpf (Few); Total Protein, Blood 6.3 g/dL (6.4-8.2); White Blood Cells, Urine Not Seen /hpf (0-5)
[2023-03-30 12:12] LABS: Adenovirus Not Detected (NOT DETECT); Bordetella pertussis Not Detected (NOT DETECT); Chlamydophila pneumoniae Not Detected (NOT DETECT); Coronavirus 229E Not Detected (NOT DETECT); Coronavirus HKU1 Not Detected (NOT DETECT); Coronavirus NL63 Not Detected (NOT DETECT); Coronavirus OC43 Not Detected (NOT DETECT); Human Metapneumovirus Not Detected (NOT DETECT); Human Rhinovirus/Enterovirus Not Detected (NOT DETECT); Influenza A/2009-H1 Not Detected (NOT DETECT); Influenza A/H1 Not Detected (NOT DETECT); Influenza A/H3 Not Detected (NOT DETECT); Influenza B Not Detected (NOT DETECT); Mycoplasma pneumoniae Not Detected (NOT DETECT); Parainfluenza Virus 1 Not Detected (NOT DETECT); Parainfluenza Virus 2 Not Detected (NOT DETECT); Parainfluenza Virus 3 Not Detected (NOT DETECT); Parainfluenza Virus 4 Not Detected (NOT DETECT); Respiratory Syncytial Virus Not Detected (NOT DETECT); SARS-Cov-2 (COVID-19), BioFire Not Detected (NOT DETECT)
[2023-03-30 13:00] VITALS: BP 124/79
[2023-03-30 13:22] LABS: BASOPHILS PERCENT MAN 0 % (0-2); EOSINOPHILS ABSOLUTE MAN 0.04 K/mm3 (0.00-0.68); EOSINOPHILS PERCENT MAN 2 % (0-6); LYMPHOCYTES ABSOLUTE MAN 1.41 K/mm3 (0.84-5.20); LYMPHOCYTES PERCENT MAN 57 % (21-46); MONOCYTES ABSOLUTE MAN 0.09 K/mm3 (0.16-1.47); MONOCYTES PERCENT MAN 4 % (4-13); NEUTROPHILS ABSOLUTE MAN 0.92 K/mm3 (1.96-9.15); SEG NEUTROPHILS PERCENT MAN 37 % (41-73); TOTAL CELLS COUNTED 100
== END 2023-03-30 16:31 | disposition home or self-care (01) ==
LOC: ER 10:26
PROVIDERS: Student in an Organized Health Care Education/Training Program
DX: D61.818 Other pancytopenia (principal); E16.2 Hypoglycemia, unspecified; B34.9 Viral infection, unspecified; I10 Essential (primary) hypertension; E03.9 Hypothyroidism, unspecified; Z20.822 Contact with and (suspected) exposure to COVID-19; Z85.850 Personal history of malignant neoplasm of thyroid; Z85.42 Personal history of malignant neoplasm of other parts of uterus; Z88.1 Allergy status to other antibiotic agents; Z88.6 Allergy status to analgesic agent; Z88.0 Allergy status to penicillin; Z88.5 Allergy status to narcotic agent; Z88.8 Allergy status to other drugs, medicaments and biological substances; Z79.899 Other long term (current) drug therapy
CPT/HCPCS: 0202U; 51798; 71045; 80048; 80076; 81001; 82803; 82947; 83690; 83735; 83880; 84145; 85025; 87086; 93005; 93010; 96374; 96375; 99285-25; J1885; P9612

== ENCOUNTER 2023-03-31 15:52 | Inpatient (IN) | payer MEDICARE, OTHER ==
[2023-03-31] VITALS (12 sets, daily range): BP systolic 58–111; BP diastolic 49–79
[~2023-03-31] VITALS: Ht 172.7 cm; Wt 65.6 kg
[2023-03-31 17:04] LABS: BASOPHILS PERCENT AUTO 0 % (0-2); EOSINOPHILS ABSOLUTE AUTO 0.03 K/mm3 (0.00-0.68); EOSINOPHILS PERCENT AUTO 1 % (0-6); Hematocrit 30.7 % (33.0-51.0); Hemoglobin 10.3 g/dL (11.5-16.0); IMMATURE GRAN ABSOLUTE AUTO 0.01 K/mm3 (0.00-0.10); IMMATURE GRAN PERCENT AUTO 0 % (0-1); LYMPHOCYTES PERCENT AUTO 47 % (21-46); MONOCYTES ABSOLUTE AUTO 0.19 K/mm3 (0.16-1.47); MONOCYTES PERCENT AUTO 7 % (4-13); Mean Corpuscular HGB 29.9 pg (26.0-34.0); Mean Corpuscular HGB Conc 33.6 g/dL (31.5-36.5); Mean Corpuscular Volume 89 fL (80-100); Mean Platelet Volume 12.8 fL (9.1-12.4); NEUTROPHILS ABSOLUTE AUTO 1.13 K/mm3 (1.96-9.15); NEUTROPHILS PERCENT AUTO 44 % (41-73); Platelet Count 90 K/mm3 (150-400); RDW Coefficient Variation 14.9 % (11.7-14.2); RDW Standard Deviation 47.3 fL (35.1-46.3); Red Blood Cell Count 3.44 M/mm3 (3.80-5.20); White Blood Cell Count 2.56 K/mm3 (4.00-11.30)
[2023-03-31 17:22] LABS: Albumin, Blood 2.7 g/dL (3.4-5.0); Albumin/Globulin Ratio 0.7 (0.8-1.8); Bilirubin, Total 0.4 mg/dL (0.1-1.0); Bun/Creatinine Ratio 27.6 (12.0-20.0); Calcium, Blood 8.9 mg/dL (8.5-10.1); Creatinine, Blood 0.73 mg/dL (0.40-1.00); Globulin, Blood 3.9 g/dL (2.2-4.0); Potassium, Blood 4.1 mmol/L (3.5-5.5); Total Protein, Blood 6.6 g/dL (6.4-8.2)
[2023-03-31 22:40] LABS: Source, Urine Foley catheter
[2023-03-31 22:42] LABS: Bilirubin, Urine Neg (Neg); Blood, Urine Neg (Neg); Glucose Qualitative, Urine Neg (Neg); Ketones, Urine Neg (Neg); Leukocyte Esterase, Urine Neg (Neg); Nitrite, Urine Neg (Neg); Protein, Urine Neg (Neg); Specific Gravity, Urine 1.005 (1.003-1.022); Urobilinogen, Urine NORM (Normal)
[2023-03-31 23:00] LABS: Appearance, Urine Clear (Clear); Color, Urine Pale Yellow (P-Yellow)
--- NOTE | 2023-03-31 23:47 | NUR ---
PATIENT TO PCU 8 FROM ER AT 2044. PATIENT WALKED TO BED WITH TWO PERSON ASSIST. ALERT AND ORIENTED TO SELF AND FOLLOWING COMMANDS. SLOW TO RESPOND. CONFRIMED WITH THAT THIS IS HER NORMAL MENTATION. 02 SATS >93% ON 2L NC, 0XYGEN PLACED ON PATIENT DUE TO SATS DROPPING TO THE 80s WHILE SLEEPING. HR A.FIB 70-80s. BP HYPOTENSIVE, NOTIFIED THE RESIDENT, MAINTENANCE FLUIDS INCREASED AND 1L LR INFUSING NOW. GLUCOSE STABLE WITH D5 INFUSING. ORAL TEMP TAKEN UPON ARRIVAL WHICH READ 92.2, RECTAL PROBE INSERTED WITH THE SAME READING. DR. LEUNG FOR TEMP DONG, DONG INSERTED WITH SAME TEMP. WARMING PAD AND YVON HUGGER ON PATIENT, TEMP NOW UP TO 95.8. PO KEPPRA CHANGED TO IV D/T PATIENT UNABLE TO SWALLOW AND UNABLE TO CRUSH PILL. PEG TUBE IN PLACE, PATIENTS STATES SHE CAN EAT SOME MECH SOFT BUT NO PILLS PO. WHEN UNABLE TO EAT PATIENT GETS JEVITY PER TUBE PER , 3 CARTONS IN THE AM AND 2 CARTONS AT NIGHT.
[2023-04-01] VITALS (84 sets, daily range): BP systolic 65–137; BP diastolic 39–85
--- NOTE | 2023-04-01 01:10 | NUR ---
RESIDENT UPDATED ON PATIENTS HYPOTENSION. ORDERS TO TRANSFER TO ICU AND TO START LEVOPHED. ATTEMPTED TO CALL LILY, LEFT MESSAGE.
--- NOTE | 2023-04-01 02:15 | NUR ---
ASSUMED CARE ASSUMED CARE OF PATIENT. AWAKE. MINIMAL SLOW VERBAL RESPONSE. FOLLOWS SIMPLE COMMANDS. MOVES ALL EXTREMITIES WEAKLY. PUPILS 3MM. RIGHT PUPIL RESPONDS BRISKLY TO LIGHT, LEFT PUPIL DOES NOT. DENIES C/O PAIN. MONITOR SHOWS AFIB, RATE 80s. BP STABLE WITH LEVOPHED AT 3MCG/MIN. D51/2NS INFUSING AT 150MLs/HR PER ORDER. DONG PATENT, DRAINING YELLOW URINE. TEMP 96.5F PER DONG TEMP PROBE. INCONTINENT OF SMALL AMOUNT OF SOFT YELLOWISH-BROWN STOOL.
[2023-04-01 03:43] LABS: Hematocrit 28.7 % (33.0-51.0); Hemoglobin 9.9 g/dL (11.5-16.0); Mean Corpuscular HGB Conc 34.5 g/dL (31.5-36.5); Mean Corpuscular Volume 87 fL (80-100); Mean Platelet Volume 12.8 fL (9.1-12.4); Platelet Count 108 K/mm3 (150-400); RDW Coefficient Variation 14.7 % (11.7-14.2); RDW Standard Deviation 45.5 fL (35.1-46.3); White Blood Cell Count 3.06 K/mm3 (4.00-11.30)
[2023-04-01 04:00] LABS: Bun/Creatinine Ratio 21.7 (12.0-20.0); Calcium, Blood 8.6 mg/dL (8.5-10.1); Creatinine, Blood 0.74 mg/dL (0.40-1.00); Magnesium, Blood 1.6 mg/dL (1.6-2.4); Potassium, Blood 3.5 mmol/L (3.5-5.5)
--- NOTE | 2023-04-01 06:06 | NUR ---
SHIFT SUMMARY RESTING QUIETLY WHEN UNDISTURBED. ROUSES EASILY TO STIMULI. CONTINUES WITH SLOW VERBAL RESPONSE. ANSWERS MOSTLY YES/NO QUESTIONS. MOVES ALL EXTREMITIES. DENIES C/O PAIN OR DISCOMFORT. LEVOPHED INFUSING NOW AT 2MCG/MIN TO MAINTAIN MAP >65. MONITOR SHOWS AFIB, RATE 80s-90s. RA SATS STABLE. TACHYPNEIC, BUT RESPIRATIONS ARE UNLABORED. PEG TUBE NOTED, CLAMPED. MEDS GIVEN THIS AM THROUGH PEG. DONG PATENT AND DRAINING TO GRAVITY. D51/2NS INFUSING AT 150MLS/HR. SCDs TO BLE. PT EDUCATED ON RISK RE: IGNITION SOURCES AND RISK OF INJURY WHILE OXYGEN IS IN USE. PT VERBALIZES UNDERSTANDING.
--- NOTE | 2023-04-01 18:30 | NUR ---
SUMMARY PT RESTING IN BED. ORIENTED TO SELF AND RECOGNIZES . UNABLE TO STATE MONTH, YEAR, OR LOCATION. ANSWERS YES OR NO QUESTIONS BUT UNSURE HOW ACCURATE. VERY SLOW TO RESPOND BUT WILL FOLLOW COMMANDS. CRUZ AND BECOMING MORE ACTIVE THE DAY GOES ON. WAS OFF LEVOPHED FOR A COUPLE HOURS BUT HAD TO RESTART AT 2MCG. GLUCOSE STABLE ON D5 1/2 NS. RENO HUGGER PLACED THIS AFTERNOON AND TEMP IMPROVED. NO LONGER ON RENO HUGGER. NO IGNITION SOURCES NOTED, /PT EDUCATED ABOUT NOT SMOKING, VAPING OR HAVING OPEN FLAME IN HOSPITAL.
--- NOTE | 2023-04-01 19:33 | NUR ---
ASSUMED CARE AT 1900 PATIENT IS ALERT AND ORIENTED TO SELF AND FOLLOWING COMMANDS. SLOW TO RESPOND. DENIES PAIN. 02 SATS 98% ON RA. HR SR 80s, BP STABLE ON LEVOPHED, PLACED ON SB AT APPROX 1930. PEG TUBE IN PLACE, CLAMPED. ORAL CARE DONE. TEMP DONG IN PLACE DRAINING YELLOW URINE TO GRAVITY. CORE TEMPS STILL NEEDED D/T LOW TEMPS CURRENTLY 96.6, WILL USE YVON HUGGER PRN. PATIENT ABLE TO SHIFT SELF IN BED, ASSISTANCE NEEDED. WAS AT BEDSIDE AT START OF SHIFT. IGNITION RISK ASSESSED, PATIENT UNABLE TO PARTICIPATE. NO RISK AT THIS TIME.
[2023-04-01 22:15] LABS: BASOPHILS ABSOLUTE AUTO 0.01 K/mm3 (0.00-0.23); BASOPHILS PERCENT AUTO 0 % (0-2); EOSINOPHILS ABSOLUTE AUTO 0.03 K/mm3 (0.00-0.68); EOSINOPHILS PERCENT AUTO 1 % (0-6); Hematocrit 29.3 % (33.0-51.0); Hemoglobin 9.8 g/dL (11.5-16.0); IMMATURE GRAN ABSOLUTE AUTO 0.01 K/mm3 (0.00-0.10); IMMATURE GRAN PERCENT AUTO 0 % (0-1); LYMPHOCYTES PERCENT AUTO 52 % (21-46); MONOCYTES ABSOLUTE AUTO 0.32 K/mm3 (0.16-1.47); MONOCYTES PERCENT AUTO 10 % (4-13); Mean Corpuscular HGB 29.7 pg (26.0-34.0); Mean Corpuscular HGB Conc 33.4 g/dL (31.5-36.5); Mean Corpuscular Volume 89 fL (80-100); NEUTROPHILS ABSOLUTE AUTO 1.13 K/mm3 (1.96-9.15); NEUTROPHILS PERCENT AUTO 37 % (41-73); Platelet Count 118 K/mm3 (150-400); RDW Coefficient Variation 14.6 % (11.7-14.2); RDW Standard Deviation 46.6 fL (35.1-46.3)
[2023-04-01 22:17] LABS: Mean Platelet Volume 14.7 fL (9.1-12.4)
[2023-04-02] VITALS (23 sets, daily range): BP systolic 85–144; BP diastolic 43–111
[2023-04-02 04:10] LABS: HEMOGLOBIN A1C 4.5 % (4.8-5.6)
--- NOTE | 2023-04-02 05:20 | NUR ---
SHIFT SUMMARY PATIENT REMAINS ALERT AND ORIENTED TO SELF. PATIENT PULLING AT LINES, PULLED AN IV, UNABLE TO REDIRECT AND DISTRACT PATIENT, PLACED IN MITS TO PROTECT LINES/TUBES. 02 SATS 96% ON RA. ORAL CARE DONE MULTIPLE TIMES THIS SHIFT. HR SR 70s. BP STABLE, LEVOPHED OFF SINCE START OF SHIFT. TEMP REMAINS LOW WHEN YVON HUGGER NOT IN PLACE TO WARM PATIENT. TEMP DONG IN PLACE, PATENT AND DRAINING TO GRAVITY. D5 1/2NS REMAINS INFUSING AT 150 MLS/HR. REPOSITIONED PRN, PATIENT ABLE TO MOVE SELF IN BED. CALL LIGHT IN REACH
[2023-04-02 07:10] LABS: IRON BIND.CAP.(TIBC) 209 ug/dL (250-450); IRON SATURATION 57 % (15-55); IRON, SERUM 120 ug/dL (27-139); UIBC 89 ug/dL (118-369)
--- NOTE | 2023-04-02 08:43 | NUR ---
CARE OF PT ASSUMED AT 0700. PT AWAKE IN BED RESTLESS. SPEECH IS MUMBLED AND DIFFICULT TO UNDERSTAND. PT ORIENTED TO SELF, THINKS SHE IS AT NURSES HOME. MITTS ON. MITTS REMOVED FOR BATH, PT IMMEDIATELY BEGAN TAKING LEADS OFF, PULLING AT DONG AND IV, NOT REDIRECTABLE. MITTS REPLACED. ORAL CARE COMPLETED, MOUTH IS SORE WITH SOME BLEEDING GUMS. SLIGHT REDNESS NOTED UNDER BREAST. CHG BEDBATH COMPLETED. D51/2 NS AT 150. LEVOPHED HAS BEEN OFF SINCE LAST NIGHT. BP ON LOWER SIDE W MAPS AROUND [address] OSEI IN TO SEE PT THIS AM, FULL UPDATE GIVEN. TEMP 98.1 WITH YVON HUGGER ON, WILL TRIAL PT OFF OF WARMER AND ASSESS/MONITOR TEMP VIA DONG TEMP PROBE. GOOD URINE OUTPUT. SATS >95% ON RA, LUNGS CLEAR, DIMINISHED TO RIGHT SIDE. PEG TUBE PATENT. PT RECEIVING THIAMINE AND KEPPRA IV. THYROID MED TO BE REVIEWED BY HOSPITALIST PER DR OSEI, WILL FOOLOW UP. NO LABS NEEDED FOR THIS AM PER DR OSEI. JEVITY TO BE STARTED TODAY AT PRIOR HOSPITAL RATE IF NUTRITION NOT AVAILABLE TODAY FOR CONSULT.
[2023-04-02 09:20] LABS: BASOPHILS PERCENT AUTO 0 % (0-2); EOSINOPHILS ABSOLUTE AUTO 0.02 K/mm3 (0.00-0.68); EOSINOPHILS PERCENT AUTO 1 % (0-6); Hemoglobin 8.5 g/dL (11.5-16.0); IMMATURE GRAN PERCENT AUTO 0 % (0-1); LYMPHOCYTES ABSOLUTE AUTO 1.03 K/mm3 (0.84-5.20); LYMPHOCYTES PERCENT AUTO 29 % (21-46); MONOCYTES ABSOLUTE AUTO 0.33 K/mm3 (0.16-1.47); MONOCYTES PERCENT AUTO 9 % (4-13); Mean Corpuscular HGB Conc 32.7 g/dL (31.5-36.5); Mean Corpuscular Volume 92 fL (80-100); NEUTROPHILS ABSOLUTE AUTO 2.22 K/mm3 (1.96-9.15); NEUTROPHILS PERCENT AUTO 62 % (41-73); Platelet Count 90 K/mm3 (150-400); RDW Coefficient Variation 15.2 % (11.7-14.2); Red Blood Cell Count 2.83 M/mm3 (3.80-5.20)
--- NOTE | 2023-04-02 10:07 | NUR ---
DR DEL CASTILLO IN TO SEE PT, FULL UPDATE GIVEN. THYROID MEDS TO BE HELD FOR NOW. BOLUS FEEDS STARTED, SEE ORDERS. TEMP 96.2. BP STABLE. PT AWAKE AND VERY RESTLESS. CONTINUES TO ATTEMPT TO REMOVE LINES, MITTS, SCD'S. PT IS SLOWED BY MITTS, BED ALARM ON.
[2023-04-02 11:10] LABS: Albumin, Blood 2.2 g/dL (3.4-5.0); Albumin/Globulin Ratio 0.6 (0.8-1.8); Bilirubin, Total 0.3 mg/dL (0.1-1.0); Bun/Creatinine Ratio 7.3 (12.0-20.0); Calcium, Blood 8.3 mg/dL (8.5-10.1); Creatinine, Blood 0.82 mg/dL (0.40-1.00); Globulin, Blood 3.6 g/dL (2.2-4.0); Potassium, Blood 3.4 mmol/L (3.5-5.5); Total Protein, Blood 5.8 g/dL (6.4-8.2)
--- NOTE | 2023-04-02 13:46 | NUR ---
PT CONFUSED. PT'S EDUCATION ON IGNITION RISKS AND VERABLIZES UNDERSTANDING.
--- NOTE | 2023-04-02 13:49 | NUR ---
PT'S AT BEDSIDE, UPDATED. PT STATED SHE NEED TO HAVE A BM. PT PREFERRED TO HAVE BM IN ATTENDS. SM LIQUID BM CLEANED.
--- NOTE | 2023-04-02 17:40 | NUR ---
YVON COE OFF SINCE THIS AM, TEMP HAS REMAINED STABLE. BP STABLE T/O SHIFT W MAPS >65. PT HAS RENAY BOLUS FEEDS. X-LARGE HARD STOOLS X2. CBG'S CHANGED TO Q6 THEY HAVE BEEN STABLE. PT REMAINS CONFUSED BUT BETTER ABLE TO COMMUNICATE NEEDS TOWARDS END OF SHIFT. VERY RESTLESS FIRST HALF OF SHIFT, AND SLEPT MORE SECOND HALF. BOTH DR DEL CASTILLO AND DR OSEI SAW PT TODAY. AT BEDSIDE FOR A COUPLE HOURS. PT STILL REQUIRES MITTS.
--- NOTE | 2023-04-02 19:30 | NUR ---
ASSUMPTION OF CARE UPON INITIAL ASSESSMENT PT WAS UNABLE TO FOLLOW COMMANDS AND WAS UNWILLING TO ANSWER QUESTIONS. WHEN ASKED WHERE SHE WAS SHE SAID "AT HOME". PT REFUSED TO OPEN EYES FOR ASSESSMENT. STARTED MOANING WHEN RN STARTED TO ADJUST PT IN BED AND PERFORM CATHETER CARE. UNABLE TO ASSESS PAIN BASED OFF OF QUESTIONS. MEDICATED FOR PAIN WITH OXYCODONE. REMAINS ON ROOM AIR. CARDIAC TARIQ BPS ARE SOFT IN 90S/60S, WITH MAPS> 65. CORE TEMP 98.4, NO YVON HUGGER. NSR. CURRENTLY RECIEVING BOLUS TUBE FEEDS. DONG DRAINING TO GRAVITY. MITTS IN PLACE. PT ATTEMPTING TO PULL AT IVS, NOT REDIRECTABLE.
[2023-04-03] VITALS (44 sets, daily range): BP systolic 71–131; BP diastolic 51–84
[2023-04-03 03:28] LABS: BASOPHILS PERCENT AUTO 0 % (0-2); EOSINOPHILS ABSOLUTE AUTO 0.03 K/mm3 (0.00-0.68); EOSINOPHILS PERCENT AUTO 1 % (0-6); Hematocrit 23.1 % (33.0-51.0); Hemoglobin 7.6 g/dL (11.5-16.0); IMMATURE GRAN PERCENT AUTO 0 % (0-1); LYMPHOCYTES ABSOLUTE AUTO 1.04 K/mm3 (0.84-5.20); LYMPHOCYTES PERCENT AUTO 32 % (21-46); MONOCYTES ABSOLUTE AUTO 0.33 K/mm3 (0.16-1.47); MONOCYTES PERCENT AUTO 10 % (4-13); Mean Corpuscular HGB 29.9 pg (26.0-34.0); Mean Corpuscular HGB Conc 32.9 g/dL (31.5-36.5); Mean Corpuscular Volume 91 fL (80-100); Mean Platelet Volume 12.2 fL (9.1-12.4); NEUTROPHILS ABSOLUTE AUTO 1.87 K/mm3 (1.96-9.15); NEUTROPHILS PERCENT AUTO 57 % (41-73); Platelet Count 77 K/mm3 (150-400); RDW Standard Deviation 49.1 fL (35.1-46.3); Red Blood Cell Count 2.54 M/mm3 (3.80-5.20); White Blood Cell Count 3.27 K/mm3 (4.00-11.30)
[2023-04-03 03:45] LABS: Albumin/Globulin Ratio 0.7 (0.8-1.8); Bilirubin, Total 0.3 mg/dL (0.1-1.0); Bun/Creatinine Ratio 10.3 (12.0-20.0); Calcium, Blood 7.9 mg/dL (8.5-10.1); Creatinine, Blood 0.68 mg/dL (0.40-1.00); Potassium, Blood 3.2 mmol/L (3.5-5.5)
--- NOTE | 2023-04-03 05:39 | NUR ---
SHIFT SUMMARY PT SLEPT MAJORITY OF SHIFT. NO ACUTE EVENTS. REMAINED A&OX2 TO SELF AND PLACE. DID BECOME AGITATED UPON ASSESSMENT. 10MG OXY GIVEN AT BEDTIME FOR PAIN INDICATORS, PER H&P THIS IS WHAT PT TAKES AT HOME. BPS REMAINED 90S/60S MAPS OVER 65. CORE TEMP > 96.5, NO YVON HUGGER. NSR. NO BMS OVERNIGHT. DONG DRAINING WITH GOOD OUTPUT.
[2023-04-03 08:11] LABS: FERRITIN 1131 ng/mL (15-150)
--- NOTE | 2023-04-03 10:50 | NUR ---
CARE OF PT ASSUMED AT 0700 THIS AM. PT SLEEPING, DOES AWAKEN TO VOICE. WHEN AWAKE PT APPEARS MORE RESPONSIVE/APPROPRIATE TO QUESTIONS TODAY, ATHOUGH SHE STILL REMAINS CONFUSED, AND MORE DROWSY TODAY. PT ABLE TO STATE NAME, STATES "I DONT FEEL VERY GOOD TODAY". STATES SHE IS PAIN BUT CAN NOT STATE WHERE THE PAIN IS. PT CAN NOT STATE WHERE SHE IS AT, "I DONT KNOW". PT IS ABLE TO FOLLOW COMMANDS THIS AM AND IS REDIRECTABLE, FOR THESE REASONS NUZHAT DC'D. PT GIVEN FULL CHG BATH. BP IS LOW W STABLE MAP. TEMP THIS AM, HIGH 95.0 RANGE. TEMP TRENDING DOWN, 95.4 NOW, YVON HUGGER REPLACED. BLOOD SUGAR STABLE. PT RENAY BOLUS FEEDS. SUGARS STABLE. D51/2NS DC'D BY DR OSEI. BOTH DR OSEI AND DR DEL CASTILLO IN TO SEE PT THIS AM. PT'S IN TO SEE PT, FULL UPDATE GIVEN. H&H TENDING DOWN, NO SIGNS OF ACTIVE BLEED; PT HAD ADDITIONAL 3L FLUID YESTERDAY WITH THE ADDITION OF FEEDS, OKAY TO GIVE LOVENOX PER DR OSEI.
--- NOTE | 2023-04-03 11:05 | NUR ---
DR OSEI UPDATED ON REPLACING YVON COE D/T TEMP 95.4, AND BP TRENDING DOWN. OKAY TO RESTART LEVOPHED IF NEEDED.
--- NOTE | 2023-04-03 14:38 | NUR ---
PT WOKE UP AND REMOVED THE YVON HUGGER STATING SHE WAS HOT. DONG TEMP 97.4. PT VERY AWAKE. PT DID NOT KNOW WHERE SHE WAS, WAS INFORMED THAT SHE WAS IN THE HOSPITAL AT [facility]. WHEN ASKED WHAT TOWN THAT WAS IN SHE STATED "[place]", BUT WAS UNABLE TO GIVE HER NAME, OR HER HUSBANDS NAME. WHEN ASKED IF SHE NEEDED ANYTHING, PT STATED "NO THANK YOU". BP SLIGHTLY HYPOTENSIVE W MAP >65.
--- NOTE | 2023-04-03 19:01 | NUR ---
PT NOT AN IGNITION RISK, FAMILY EDUCATED.
[2023-04-04] VITALS (38 sets, daily range): BP systolic 88–131; BP diastolic 53–88
[2023-04-04 03:51] LABS: BASOPHILS PERCENT AUTO 0 % (0-2); EOSINOPHILS ABSOLUTE AUTO 0.06 K/mm3 (0.00-0.68); EOSINOPHILS PERCENT AUTO 2 % (0-6); Hematocrit 22.7 % (33.0-51.0); Hemoglobin 7.5 g/dL (11.5-16.0); IMMATURE GRAN PERCENT AUTO 0 % (0-1); LYMPHOCYTES ABSOLUTE AUTO 1.01 K/mm3 (0.84-5.20); LYMPHOCYTES PERCENT AUTO 40 % (21-46); MONOCYTES ABSOLUTE AUTO 0.36 K/mm3 (0.16-1.47); MONOCYTES PERCENT AUTO 14 % (4-13); Mean Corpuscular Volume 91 fL (80-100); NEUTROPHILS ABSOLUTE AUTO 1.12 K/mm3 (1.96-9.15); NEUTROPHILS PERCENT AUTO 44 % (41-73); Platelet Count 87 K/mm3 (150-400); RDW Coefficient Variation 15.2 % (11.7-14.2); RDW Standard Deviation 49.4 fL (35.1-46.3); White Blood Cell Count 2.55 K/mm3 (4.00-11.30)
[2023-04-04 04:11] LABS: Albumin, Blood 1.9 g/dL (3.4-5.0); Albumin/Globulin Ratio 0.6 (0.8-1.8); Bilirubin, Total 0.2 mg/dL (0.1-1.0); Bun/Creatinine Ratio 13.1 (12.0-20.0); Calcium, Blood 8.2 mg/dL (8.5-10.1); Creatinine, Blood 0.61 mg/dL (0.40-1.00); Globulin, Blood 3.2 g/dL (2.2-4.0); Potassium, Blood 4.2 mmol/L (3.5-5.5); Total Protein, Blood 5.1 g/dL (6.4-8.2)
--- NOTE | 2023-04-04 06:02 | NUR ---
PATIENT AOX1. ALERT AND ABLE TO GIVE SIMPLE ANSWERS TO QUESTIONS. SR, SYS 80'S-110 WITH MAP >65. ROOM AIR. INCONTINENT OF STOOL. DONG IN PLACE. PATIENT BECAME HYPOGLYCEMIC AT 0000 WITH BG IN THE 60'S. IMPROVED AFTER APPLE JUICE GIVEN THROUGH PEG TUBE. PATIENT BECAME HYPOTHERMIC, WITH DONG TEMP PROBE READING 95.8. YVON HUGGER PLACED AND REMOVED AT 0500. PATIENT EDUCATED ON POTENTIAL SOURCES OF IGNITION AND RISKS.
--- NOTE | 2023-04-04 09:44 | NUR ---
CARE ASSUMPTION DURING BEDSIDE SHIFT REPORT WITH NANNETTE FIGUEROA THE PT IS LYING IN BED ON RM AIR. THE PT IS ALERT MAINTAINING EYE CONTACT WHILE WE STOOD IN THE ROOM. PT ABLE TO TELL ME HER NAME AND WHERE SHE IS BUT IS ONLY RESPONDING IN ONE OR TWO WORD ANSWERS. PT'S BP WNL AND STABLE. MONITOR SHOWING SR IN THE 70'S. PT DENYING ANY PAIN OR NAUSEA AT THIS TIME. PT HAS TEMP DONG DRAINING CLEAR YELLOW URINE.
--- NOTE | 2023-04-04 17:39 | NUR ---
DAY SHIFT SUMMARY PT IS ALERT TO SELF AND PLACE BUT WHEN ASKED WHY SHE IS IN THE HOSPITAL OR ANY OTHER SPECIFIC QUESTIONS SHE REMAINS SILENT AND DOES NOT ANSWER. PT SPEAKING IN ONE OR TWO WORD ANSWERS THIS SHIFT. PT'S TEMP STABLE THIS SHIFT. CBG'S STABLE THIS SHIFT. BP WNL AND STABLE.MOINTOR SHOWING SR 60'S THIS SHIFT. SPO2 >92% ON RM AIR. PT TOLERATING PO INTAKE SHE HAD A ST EVAL THIS SHIFT AND WAS STARTED ON A PUREE DIET. PT EATING HALF OF HER MEALS BUT IS VERY RELUCTANT TO DRINK ANY FLUIDS. PT TOLERATING BOLUS FEEDS PER PEG TUBE WELL. PT HAS DONG CATHETER REMOVED THIS SHIFT AND IS VOIDING WELL W A PUREWICK IN PLACE. PT MNOW MEDICAL STATUS, PENDING TRANSFER. WILL REPORT TO ONCOMING HENRY
--- NOTE | 2023-04-04 23:32 | NUR ---
ASSUMED CARE OF PT AT 1900 BEDSIDE REPORT RECIEVED FROM HENRY GALE. PT IS SMILING AND NODDING APPROPRIATELY, ANSWERS QUESTIONS WITH 1 WORD ANSWERS. MEDICAL STATUS NO TELE. V/S STABLE. ROOM AIR, LUNGS CTA/DIM BASES. PEG TUBE TO LEFT UPPER ABDOMEN. BOLUS FEED X1 GIVEN, PT TOLERATED WELL. PUREWICK IN PLACE, COLLECTING WELL. PT REPOSITIONED EVERY 2 HOURS FOR COMFORT AND TO MAINTAIN SKIN INTEGRITY. PG TO UPPER ARM, FLUSHES WELL, SL. NO FAMILY AT BEDSIDE. H/H TRENDING DOWN, NO S/S BLEEDING, NO BLOOD CONSENT SIGNED. ATTEMPTED TO CONTACT TO DISCUSS WELL UPDATE ON POC, NO ANSWER, LEFT MESSAGE REQUESTING RETURN CALL. REPORT CALLED TO HAMMAD SALAZAR RN. PT TO BE TRANSFERRED TO ROOM 363.
[2023-04-05 00:30] VITALS: BP 126/73
--- NOTE | 2023-04-05 00:47 | NUR ---
TRANSFER NOTE HANDOFF RECEIVED FROM COMPUTER CONSULTANT ROBERT. PT TRANSFERED TO ROOM 363 VIA GURNEY. PT ORIENTED TO UNIT CALL BUTTON WITHIN REACH.
[2023-04-05 03:35] VITALS: BP 127/75
--- NOTE | 2023-04-05 04:36 | NUR ---
SHIFT SUMMARY ADMITTED FOR TOXIC METABOLIC ENCEPHALOPATHY. FULL CODE. TRANSFERED FROM ICU TO MED FLOOR THIS SHIFT. PEG TUBE FOR BOLUS FEEDINGS. POWERGLIDE NOT FLUSHING. TELEMETRY: MARIBEL @ 58 BPM. BLIND IN RIGHT EYE. PUREE DIET, FEEDER. SSHE IS INCONTINENT. PUREWICK IN PLACE.
[2023-04-05 05:07] LABS: BASOPHILS ABSOLUTE AUTO 0.01 K/mm3 (0.00-0.23); BASOPHILS PERCENT AUTO 0 % (0-2); EOSINOPHILS ABSOLUTE AUTO 0.07 K/mm3 (0.00-0.68); EOSINOPHILS PERCENT AUTO 2 % (0-6); Hematocrit 25.7 % (33.0-51.0); Hemoglobin 8.4 g/dL (11.5-16.0); IMMATURE GRAN ABSOLUTE AUTO 0.02 K/mm3 (0.00-0.10); IMMATURE GRAN PERCENT AUTO 1 % (0-1); LYMPHOCYTES ABSOLUTE AUTO 1.46 K/mm3 (0.84-5.20); LYMPHOCYTES PERCENT AUTO 39 % (21-46); MONOCYTES ABSOLUTE AUTO 0.47 K/mm3 (0.16-1.47); MONOCYTES PERCENT AUTO 12 % (4-13); Mean Corpuscular HGB 30.2 pg (26.0-34.0); Mean Corpuscular HGB Conc 32.7 g/dL (31.5-36.5); Mean Corpuscular Volume 92 fL (80-100); Mean Platelet Volume 12.8 fL (9.1-12.4); NEUTROPHILS ABSOLUTE AUTO 1.76 K/mm3 (1.96-9.15); NEUTROPHILS PERCENT AUTO 47 % (41-73); Platelet Count 105 K/mm3 (150-400); RDW Coefficient Variation 14.8 % (11.7-14.2); RDW Standard Deviation 48.5 fL (35.1-46.3); Red Blood Cell Count 2.78 M/mm3 (3.80-5.20); White Blood Cell Count 3.79 K/mm3 (4.00-11.30)
[2023-04-05 06:21] LABS: Albumin, Blood 2.2 g/dL (3.4-5.0); Albumin/Globulin Ratio 0.6 (0.8-1.8); Bilirubin, Total 0.2 mg/dL (0.1-1.0); Bun/Creatinine Ratio 18.6 (12.0-20.0); Calcium, Blood 8.7 mg/dL (8.5-10.1); Creatinine, Blood 0.7 mg/dL (0.40-1.00); Globulin, Blood 3.6 g/dL (2.2-4.0); Magnesium, Blood 1.9 mg/dL (1.6-2.4); Phosphorus, Blood 3.5 mg/dL (2.5-4.9); Total Protein, Blood 5.8 g/dL (6.4-8.2)
[2023-04-05 07:48] VITALS: BP 130/84
[2023-04-05 16:35] VITALS: BP 120/75
--- NOTE | 2023-04-05 18:15 | NUR ---
SHIFT SUMMARY PT A&OX2 AND PLEASANT. PT IS NOT VERY TALKATIVE. USES ONE WORD ANSWERS. PT ATE MOST OF BREAKFAST THIS MORNING BUT DECLINED TUBE FEEDING WHEN ASKED AT 1000. PT DID NOT WANT LUNCH AND ALSO DECLINED EARLY AFTERNOON TUBE FEEDING. CAME TO SEE PT IN AFTERNOON AND PT ATE THE FOOD THAT HER BROUGHT IN. THIS NURSE TALKED TO ABOUT TUBE FEEDING, STATED THAT PT DOES NOT ALWAYS DO TUBE FEEDINGS TID. PT WAS UP TO CHAIR IN AFTERNOON. PT WAS ABLE TO AMBULATE IN [place] AND WORKED WITH PHYSICAL THERAPY, OT AND ST TODAY. VSS. PT REMINDED OF POSSIBLE SOURCES OF IGNITION AND NO SMOKING POLICY. BED IN LOWEST POSITION AND CALL LIGHT IN REACH. BED ALARM ON FOR SAFETY.
[2023-04-05 20:18] VITALS: BP 141/79
[2023-04-06 02:42] VITALS: BP 131/70
--- NOTE | 2023-04-06 03:12 | NUR ---
REGISTERED NURSE FIRST ASSISTANT SUMMARY NO ACUTE EVENTS OVERNIGHT. A&OX1. PATIENT RESPONDS WELL TO YES/NO QUESTIONS. VSS. RR EVEN AND UNLABORED ON RA. TELE REVEALS SINUS BRADYCARDIA, HR 58. PEG TUBE TO LUQ. NO SIGNS OR SYMPTOMS OF PAIN. PATIENT APPEARS TO BE TOLERATING PO INTAKE. BED LOW AND LOCKED. BED ALARM ON FOR SAFETY. CALL LIGHT WITHIN REACH. INCREASED ROUNDING PERFORED. THIS RN WILL CONTINUE TO MONITOR.
--- NOTE | 2023-04-06 05:44 | NUR ---
POWERGLIDE REMOVAL PATIENT REMOVED RUE POWERGLIDE. CATHETER TIP INTACT. NO SIGNS OF BLEEDING. PATIENT APPEARS TO BE IN NO ACUTE DISTRESS. DR. LIZARRAGA NOTIFIED OF THIS. AN ORDER FOR NO IV ACCESS OBTAINED, TELE WAS DISCONTINUED, AND IV MEDICATIONS ROUTES WERE CHANGED.
--- NOTE | 2023-04-06 06:05 | NUR ---
PATIENT EDUCATION RELATED TO FIRE SAFETY PATIENT EDUCATED ON POSSIBLE IGNITION SOURCES AND NO SMOKING POLICY.
--- NOTE | 2023-04-06 07:30 | NUR ---
ASSUMED CARE: PT RESTING IN BED AT THIS TIME. NO TELE, ON RA. BED ALARM ON. NO ACUTE NEEDS OR CONCERNS.
[2023-04-06 08:11] VITALS: BP 121/76
[2023-04-06] MEDS ORDERED: EUTHYROX50 MCG PO (13:11)
[2023-04-06] MEDS ORDERED: Vitamin B Comple1 EA PO (13:13)
[2023-04-06] MEDS ORDERED: CEROVITE PO (13:13)
--- NOTE | 2023-04-06 14:54 | NUR ---
DISCHARGE: PT AND GIVEN DISCHARGE INSTRUCTIONS INCLUDING FOLLOW UP APPOINTMENTS. PT'S ATTENDS CHANGED AND CLEANED WELL ASSISTED PT WITH DRESSING. TRANSFERRED TO WHEEL CHAIR MITH MINIMAL ASSISTANCE. ESCORTED OUT VIA WHEELCHAIR. DENIED FURTHER QUESTIONS OR CONCERNS.
== END 2023-04-06 14:33 | disposition home or self-care (01) | DRG 640 ==
LOC: ER 15:52 → PCU 15:53 → ICUE 15:53 → PCU 20:42 → ICUE 04-01 02:14 → MEDS 04-04 23:57 → EDPENDDISTM 04-06 12:18 → EDPENDDISDT 04-06 12:18 → ENPENDDIS 04-06 12:18 → MEDS 04-06 14:33
PROVIDERS: Emergency Medicine; Family Medicine; Internal Medicine; Internal Medicine Critical Care Medicine; ADMIT Nurse Practitioner Acute Care
PROC: 0T9B70Z Drainage of Bladder with Drainage Device, Via Natural or Artificial Opening (ICD-10-PCS; 2023-03-31)
PROC: 3E033XZ Introduction of Vasopressor into Peripheral Vein, Percutaneous Approach (ICD-10-PCS; principal; 2023-04-01)
DX: E16.2 Hypoglycemia, unspecified (principal); G92.8 Other toxic encephalopathy; D61.818 Other pancytopenia; E46 Unspecified protein-calorie malnutrition; E51.2 Wernicke's encephalopathy; X58.XXXA Exposure to other specified factors, initial encounter; I48.91 Unspecified atrial fibrillation; F32.A Depression, unspecified; T68.XXXA Hypothermia, initial encounter; E89.0 Postprocedural hypothyroidism; G40.909 Epilepsy, unspecified, not intractable, without status epilepticus; Z87.820 Personal history of traumatic brain injury; Z93.1 Gastrostomy status; E88.09 Other disorders of plasma-protein metabolism, not elsewhere classified; I95.9 Hypotension, unspecified; H54.62 Unqualified visual loss, left eye, normal vision right eye; I10 Essential (primary) hypertension; F41.9 Anxiety disorder, unspecified; M79.7 Fibromyalgia; S90.32XA Contusion of left foot, initial encounter; B96.20 Unspecified Escherichia coli [E. coli] as the cause of diseases classified elsewhere; R13.10 Dysphagia, unspecified; Z88.0 Allergy status to penicillin; Z88.5 Allergy status to narcotic agent; Z88.8 Allergy status to other drugs, medicaments and biological substances; Z79.891 Long term (current) use of opiate analgesic; Z79.890 Hormone replacement therapy; Z79.899 Other long term (current) drug therapy; Z85.850 Personal history of malignant neoplasm of thyroid; Z85.42 Personal history of malignant neoplasm of other parts of uterus; Z87.81 Personal history of (healed) traumatic fracture; Z90.710 Acquired absence of both cervix and uterus; Z98.890 Other specified postprocedural states; Z86.19 Personal history of other infectious and parasitic diseases; Z85.41 Personal history of malignant neoplasm of cervix uteri; Z68.22 Body mass index [BMI] 22.0-22.9, adult
CPT/HCPCS: 36415; 51702; 70450; 80048; 80053; 80400; 81003; 82533; 82607; 82728; 82746; 82947; 83036; 83540; 83550; 83605; 83735; 84100; 84206; 84439; 84443; 84681; 85025; 85027; 85060; 87077; 87086; 87186; 92526; 92610; 96361; 96365; 96372; 96374; 96375; 96376; 97166; 97530; 99285-25; A9270; C1751; G0378; J0834; J1650; J1953; J3411; J3480; J7042; J7050; J7060; J7120

== ENCOUNTER → 2023-08-30 | Outpatient (CLI) | payer MEDICARE, OTHER ==
[~2023-08-30] MED LIST changes: +CEROVITE PO; +EUTHYROX50 MCG PO; +Vitamin B Comple1 EA PO
[2023-08-30 16:14] LABS: BASOPHILS ABSOLUTE AUTO 0.01 K/mm3 (0.00-0.23); BASOPHILS PERCENT AUTO 0 % (0-2); EOSINOPHILS ABSOLUTE AUTO 0.05 K/mm3 (0.00-0.68); EOSINOPHILS PERCENT AUTO 1 % (0-6); Hematocrit 35.6 % (33.0-51.0); Hemoglobin 11.2 g/dL (11.5-16.0); IMMATURE GRAN ABSOLUTE AUTO 0.01 K/mm3 (0.00-0.10); IMMATURE GRAN PERCENT AUTO 0 % (0-1); LYMPHOCYTES ABSOLUTE AUTO 1.29 K/mm3 (0.84-5.20); LYMPHOCYTES PERCENT AUTO 25 % (21-46); MONOCYTES ABSOLUTE AUTO 0.52 K/mm3 (0.16-1.47); MONOCYTES PERCENT AUTO 10 % (4-13); Mean Corpuscular HGB 29.4 pg (26.0-34.0); Mean Corpuscular HGB Conc 31.5 g/dL (31.5-36.5); Mean Corpuscular Volume 93 fL (80-100); Mean Platelet Volume 12.4 fL (9.1-12.4); NEUTROPHILS ABSOLUTE AUTO 3.22 K/mm3 (1.96-9.15); NEUTROPHILS PERCENT AUTO 63 % (41-73); Platelet Count 248 K/mm3 (150-400); RDW Coefficient Variation 14.4 % (11.7-14.2); RDW Standard Deviation 48.6 fL (35.1-46.3); Red Blood Cell Count 3.81 M/mm3 (3.80-5.20)
[2023-08-30 18:28] LABS: Albumin, Blood 3.3 g/dL (3.4-5.0); Albumin/Globulin Ratio 0.7 (0.8-1.8); Bilirubin, Total 0.5 mg/dL (0.1-1.0); Bun/Creatinine Ratio 29.7 (12.0-20.0); Calcium, Blood 9.2 mg/dL (8.5-10.1); Creatinine, Blood 0.71 mg/dL (0.40-1.00); Globulin, Blood 4.8 g/dL (2.2-4.0); Potassium, Blood 3.4 mmol/L (3.5-5.5); Total Protein, Blood 8.1 g/dL (6.4-8.2)
== END ==
LOC: LAB SHORT 11:41 → LAB 11:41
PROVIDERS: Physician Assistant
DX: R10.12 Left upper quadrant pain (principal)
CPT/HCPCS: 36415; 80053; 85025

== ENCOUNTER 2023-10-18 12:02 | Emergency (ER) | payer MEDICARE, OTHER ==
[~2023-10-18] VITALS: Ht 177.8 cm; Wt 59.0 kg
[2023-10-18 13:58] LABS: Albumin, Blood 3.3 g/dL (3.4-5.0); Albumin/Globulin Ratio 0.6 (0.8-1.8); BASOPHILS ABSOLUTE AUTO 0.02 K/mm3 (0.00-0.23); BASOPHILS PERCENT AUTO 0 % (0-2); Bilirubin, Total 0.4 mg/dL (0.1-1.0); Bun/Creatinine Ratio 31.6 (12.0-20.0); Calcium, Blood 9.7 mg/dL (8.5-10.1); Creatinine, Blood 0.7 mg/dL (0.40-1.00); EOSINOPHILS ABSOLUTE AUTO 0.04 K/mm3 (0.00-0.68); EOSINOPHILS PERCENT AUTO 1 % (0-6); Globulin, Blood 5.3 g/dL (2.2-4.0); Hematocrit 39.7 % (33.0-51.0); Hemoglobin 13.1 g/dL (11.5-16.0); IMMATURE GRAN ABSOLUTE AUTO 0.06 K/mm3 (0.00-0.10); IMMATURE GRAN PERCENT AUTO 1 % (0-1); LYMPHOCYTES ABSOLUTE AUTO 1.35 K/mm3 (0.84-5.20); LYMPHOCYTES PERCENT AUTO 25 % (21-46); MONOCYTES PERCENT AUTO 11 % (4-13); Mean Corpuscular HGB 30.3 pg (26.0-34.0); Mean Corpuscular Volume 92 fL (80-100); NEUTROPHILS ABSOLUTE AUTO 3.28 K/mm3 (1.96-9.15); NEUTROPHILS PERCENT AUTO 61 % (41-73); Potassium, Blood 3.8 mmol/L (3.5-5.5); RDW Coefficient Variation 15.7 % (11.7-14.2); RDW Standard Deviation 51.4 fL (35.1-46.3); Red Blood Cell Count 4.33 M/mm3 (3.80-5.20); Total Protein, Blood 8.6 g/dL (6.4-8.2); White Blood Cell Count 5.35 K/mm3 (4.00-11.30)
[2023-10-18 14:29] LABS: Mean Platelet Volume 12.1 fL (9.1-12.4); Platelet Count 141 K/mm3 (150-400)
[2023-10-18] MEDS ORDERED: CLINDAMYCI75 MG/5 ML PO (19:46)
[2023-10-18] MEDS ORDERED: CLINDAMYCI75 MG/5 M1 PO (19:46)
[2023-10-18 20:00] VITALS: BP 139/86
== END 2023-10-18 21:11 | disposition home or self-care (01) ==
LOC: ER 12:02
PROVIDERS: Physician Assistant
DX: J69.0 Pneumonitis due to inhalation of food and vomit (principal); E03.9 Hypothyroidism, unspecified; I10 Essential (primary) hypertension; R06.02 Shortness of breath; Z79.899 Other long term (current) drug therapy; Z79.890 Hormone replacement therapy; Z88.0 Allergy status to penicillin; Z88.5 Allergy status to narcotic agent; Z88.6 Allergy status to analgesic agent; Z88.8 Allergy status to other drugs, medicaments and biological substances; Z93.1 Gastrostomy status
CPT/HCPCS: 36415; 71046; 71260; 80053; 84484; 85025; 85379; 93005; 93010; 99285-25; A9270; Q9967

== ENCOUNTER → 2023-10-19 | Outpatient (CLI) | payer MEDICARE, OTHER ==
[~2023-10-19] MED LIST changes: +CLINDAMYCI75 MG/5 M1 PO; +CLINDAMYCI75 MG/5 ML PO
[2023-10-19 14:03] LABS: Source, Urine Clean Catch
[2023-10-19 15:28] LABS: Amorphous Light (0-Heavy); Bacteria Many /hpf; Mucus Light (0-Heavy); Squamous Epithelial Cells Mod /hpf (Few); Transitional Epithelial Cells Rare /hpf (0-Rare); White Blood Cells, Urine TNTC /hpf (0-5)
== END | disposition home or self-care (01) ==
LOC: LAB 13:23 → LAB SHORT 13:23
PROVIDERS: Physician Assistant
DX: R10.12 Left upper quadrant pain (principal)
CPT/HCPCS: 81015

== ENCOUNTER → 2023-10-25 | Outpatient (CLI) | payer MEDICARE, OTHER | END | disposition home or self-care (01) | LOC: LAB 17:44 → LAB SHORT 17:44 | DX: N39.0 Urinary tract infection, site not specified (principal) | CPT/HCPCS: 87077; 87086; 87186 ==

== ENCOUNTER 2024-03-16 09:36 | Emergency (ER) | payer MEDICARE, OTHER ==
[~2024-03-16] VITALS: Ht 170.2 cm; Wt 65.8 kg
[2024-03-16] MEDS ORDERED: Lactated Ringer's 1,000 ML IV SCH (11:15)
[2024-03-16] MEDS ORDERED: CYCL10 (11:44)
[2024-03-16 11:55] VITALS: BP 133/89
--- NOTE | 2024-03-16 11:58 | NUR ---
History, Chart, Medications and Allergies reviewed before start of procedure. Pre-Op teaching done. Pt verbalizes understanding. PT KEEPS FACE COVERED WITH HANDS OR BLANKET. CAREGIVER/DAUGHTER AT BEDSIDE. PT NOT RESPONDING TO QUESTIONS BUT WILL FOLLOW DIRECTIONS WHEN ASKED TO. PT PLACED IN GOWN WITH HELP OF CAREGIVER.
[2024-03-16] MEDS ORDERED: CeFAZolin Sodium 2,000 MG in NS 100 ML IV SCH (12:05)
[2024-03-16] MEDS ORDERED: propofoL 60 ML IV ONE (12:38)
[2024-03-16] MEDS ORDERED: Clindamycin 600mg in D5W 50 ML IV SCH (13:10)
--- NOTE | 2024-03-16 13:15 | NUR ---
03/16/24 1315 Miguelito Verma History, Chart, Medications and Allergies reviewed before start of procedure. MONITOR INTACT WITH CONTINUOUS PULSE OXIMETRY, CONTINUOUS END TITAL CO2, AND INTERMITTENT BLOOD PRESSURE. 3-LEAD EKG REVIEWED WITH PHYSICIAN PRIOR TO START OF PROCEDURE. O2 VIA POM INTACT THROUGHOUT SEDATION/PROCEDURE. Bite Block Placed.
[2024-03-16 13:35] VITALS: BP 112/73
[2024-03-16 13:36] VITALS: BP 109/77
--- NOTE | 2024-03-16 14:02 | NUR ---
Discharge instructions reviewed with patient. Patient verbalizes understanding. Copy given to patient to take home. 20G IV REMOVED IN LAC. PT TOLERATED WELL.
== END 2024-03-16 11:35 | disposition home or self-care (01) ==
LOC: ER 09:36
DX: K94.29 Other complications of gastrostomy (principal); R13.12 Dysphagia, oropharyngeal phase; E03.9 Hypothyroidism, unspecified; I10 Essential (primary) hypertension; F41.9 Anxiety disorder, unspecified; F32.A Depression, unspecified; Z87.820 Personal history of traumatic brain injury; Z91.51 Personal history of suicidal behavior; Z88.1 Allergy status to other antibiotic agents; Z88.0 Allergy status to penicillin; Z88.8 Allergy status to other drugs, medicaments and biological substances; Z88.5 Allergy status to narcotic agent; Z79.899 Other long term (current) drug therapy
CPT/HCPCS: 43762; 99284-25; C1769; J2704; J7120

== ENCOUNTER 2024-06-25 09:07 | Inpatient (IN) | payer MEDICARE, OTHER ==
[~2024-06-25] VITALS: Ht 170.2 cm; Wt 65.8 kg
[~2024-06-25 09:07] MED LIST changes: -EUTHYROX50 MCG PO; +LEVSOD75 PO
[2024-06-25 09:49] LABS: BASOPHILS ABSOLUTE AUTO 0.02 K/mm3 (0.00-0.23); BASOPHILS PERCENT AUTO 0 % (0-2); EOSINOPHILS ABSOLUTE AUTO 0.09 K/mm3 (0.00-0.68); EOSINOPHILS PERCENT AUTO 1 % (0-6); Hematocrit 34.3 % (33.0-51.0); Hemoglobin 11.3 g/dL (11.5-16.0); IMMATURE GRAN ABSOLUTE AUTO 0.04 K/mm3 (0.00-0.10); IMMATURE GRAN PERCENT AUTO 0 % (0-1); LYMPHOCYTES ABSOLUTE AUTO 2.67 K/mm3 (0.84-5.20); LYMPHOCYTES PERCENT AUTO 27 % (21-46); MONOCYTES ABSOLUTE AUTO 0.88 K/mm3 (0.16-1.47); MONOCYTES PERCENT AUTO 9 % (4-13); Mean Corpuscular HGB 30.5 pg (26.0-34.0); Mean Corpuscular HGB Conc 32.9 g/dL (31.5-36.5); Mean Corpuscular Volume 93 fL (80-100); Mean Platelet Volume 11.3 fL (9.1-12.4); NEUTROPHILS ABSOLUTE AUTO 6.25 K/mm3 (1.96-9.15); NEUTROPHILS PERCENT AUTO 63 % (41-73); Platelet Count 264 K/mm3 (150-400); RDW Coefficient Variation 13.8 % (11.7-14.2); RDW Standard Deviation 46.8 fL (35.1-46.3); White Blood Cell Count 9.95 K/mm3 (4.00-11.30)
[2024-06-25] MEDS ORDERED: Acetaminophen 500 MG Tab PO ONE (10:10)
[2024-06-25] MEDS ORDERED: Ipratropium/Albuterol SulF 2.5-0.5MG/3 ML Amp INH ONE (10:10)
[2024-06-25 10:12] LABS: Albumin, Blood 3.1 g/dL (3.4-5.0); Albumin/Globulin Ratio 0.6 (0.8-1.8); Bun/Creatinine Ratio 31.7 (12.0-20.0); Calcium, Blood 9.3 mg/dL (8.5-10.1); Creatinine, Blood 0.88 mg/dL (0.40-1.00); Globulin, Blood 5.3 g/dL (2.2-4.0); Potassium, Blood 3.8 mmol/L (3.5-5.5); Total Protein, Blood 8.4 g/dL (6.4-8.2)
[2024-06-25] MEDS ORDERED: CefTRIAXone Sodium 1,000 MG in NS 50 ML IV ONE (10:35)
[2024-06-25] MEDS ORDERED: Doxycycline Hyclate 100 MG in Dextrose 5% 250 ML IV ONE (10:35)
[2024-06-25] MEDS ORDERED: NS 1,000 ML IV SCH (10:40)
[2024-06-25] MEDS ORDERED: FentaNYL Citrate 50 MCG/ML 2 ML Injection IV PRN (11:30)
[2024-06-25] MEDS ORDERED: Acetaminophen 325 MG TABLET PT PRN (11:30)
[2024-06-25] MEDS ORDERED: Ondansetron HCl 2 MG / ML 2ML Vial IV PRN (11:35)
[2024-06-25] MEDS ORDERED: FLU VACC TS2024-25(6MOS UP)/PF 45 MCG/0.5 ML SYRINGE IM SCH (11:35)
[2024-06-25] MEDS ORDERED: Lactated Ringer's 1,000 ML IV SCH (11:35)
[2024-06-25 11:45] LABS: Adenovirus Not Detected (NOT DETECT); Bordetella pertussis Not Detected (NOT DETECT); Chlamydophila pneumoniae Not Detected (NOT DETECT); Coronavirus 229E Not Detected (NOT DETECT); Coronavirus HKU1 Not Detected (NOT DETECT); Coronavirus NL63 Not Detected (NOT DETECT); Coronavirus OC43 Not Detected (NOT DETECT); Human Metapneumovirus Not Detected (NOT DETECT); Human Rhinovirus/Enterovirus Not Detected (NOT DETECT); Influenza A/2009-H1 Not Detected (NOT DETECT); Influenza A/H1 Not Detected (NOT DETECT); Influenza A/H3 Not Detected (NOT DETECT); Influenza B Not Detected (NOT DETECT); Mycoplasma pneumoniae Not Detected (NOT DETECT); Parainfluenza Virus 1 Not Detected (NOT DETECT); Parainfluenza Virus 2 Not Detected (NOT DETECT); Parainfluenza Virus 3 Not Detected (NOT DETECT); Parainfluenza Virus 4 Not Detected (NOT DETECT); Respiratory Syncytial Virus Not Detected (NOT DETECT); SARS-Cov-2 (COVID-19), BioFire Not Detected (NOT DETECT)
[2024-06-25 14:01] VITALS: BP 131/80
[2024-06-25] MEDS ORDERED: Albuterol 2.5 MG/3 ML VIAL INH PRN (15:50)
--- NOTE | 2024-06-25 17:57 | NUR ---
SHIFT SUMMARY 1350 RECIEVED PT TO RM 312 VIA GURNEY FROM ER. SLIDE TX TO BED. PT ADMITTED FOR HYPOXIC RESPIRATORY FAILURE AND RLL PNM. PT LIVING WITH ; STEP DAUGHTER IS BRUSH HOLDER INSPECTOR. PT WENT TO URGENT CARE ON TUESDAY, OBTAINED PO ABX. PT CONTINUED TO DECLINE, BECOMING MISERABLE WITH WET COUGH. O2 SAT'S 88% IN ER. PT PLACED ON 2L O2. BIOX WHEN COMING TO RM 97% ON 1L. PT NOW ON RA, WHICH IS BASELINE. PT IS MOSTLY NONVERBAL. NPO WITH PEG TUBE IN PLACE. PER REPORT, PT IS ABLE TO AMBULATE WITH CANE AND 1P ASSIST TO W/C. INCONTINENT OF BLADDER; PT CLEANED AND CHANGED NEEDED. IVF'S AND IV ABX GIVEN IN ER; SEE CHART. RT AND DENTAL HYGENIST BOTH IN TO SEE PT. REFERRAL TO [facility] MADE BY HYGENIST; SEE CHART. REFERRAL ON CHART TO BE GIVEN TO FAMILY. REFERRAL ALSO SENT TO [facility]. PT RESTING QUIETLY AT THIS TIME. CALL LT IN REACH. BED ALARM ON FOR SAFETY.
[2024-06-25 19:32] VITALS: BP 95/50
[2024-06-25] MEDS ORDERED: Doxycycline Hyclate 100 MG in Dextrose 5% 250 ML IV SCH (21:00)
[2024-06-26 02:30] VITALS: BP 134/83
[2024-06-26 05:12] LABS: BASOPHILS ABSOLUTE AUTO 0.01 K/mm3 (0.00-0.23); BASOPHILS PERCENT AUTO 0 % (0-2); EOSINOPHILS ABSOLUTE AUTO 0.07 K/mm3 (0.00-0.68); EOSINOPHILS PERCENT AUTO 1 % (0-6); Hematocrit 27.7 % (33.0-51.0); Hemoglobin 9.2 g/dL (11.5-16.0); IMMATURE GRAN ABSOLUTE AUTO 0.01 K/mm3 (0.00-0.10); IMMATURE GRAN PERCENT AUTO 0 % (0-1); LYMPHOCYTES ABSOLUTE AUTO 1.38 K/mm3 (0.84-5.20); LYMPHOCYTES PERCENT AUTO 28 % (21-46); MONOCYTES ABSOLUTE AUTO 0.55 K/mm3 (0.16-1.47); MONOCYTES PERCENT AUTO 11 % (4-13); Mean Corpuscular HGB 30.7 pg (26.0-34.0); Mean Corpuscular HGB Conc 33.2 g/dL (31.5-36.5); Mean Corpuscular Volume 92 fL (80-100); Mean Platelet Volume 11.1 fL (9.1-12.4); NEUTROPHILS ABSOLUTE AUTO 2.92 K/mm3 (1.96-9.15); NEUTROPHILS PERCENT AUTO 59 % (41-73); Platelet Count 186 K/mm3 (150-400); RDW Coefficient Variation 13.7 % (11.7-14.2); RDW Standard Deviation 46.3 fL (35.1-46.3); White Blood Cell Count 4.94 K/mm3 (4.00-11.30)
[2024-06-26 05:53] LABS: Bun/Creatinine Ratio 21.6 (12.0-20.0); Calcium, Blood 8.4 mg/dL (8.5-10.1); Creatinine, Blood 0.69 mg/dL (0.40-1.00); Potassium, Blood 3.3 mmol/L (3.5-5.5)
[2024-06-26 07:52] VITALS: BP 137/72
[2024-06-26] MEDS ORDERED: Potassium Chloride 20 MEQ TabCR PT ONE (08:45)
[2024-06-26] MEDS ORDERED: CefTRIAXone Sodium 1,000 MG in NS 100 ML IV SCH (09:00)
[2024-06-26] MEDS ORDERED: Enoxaparin 40 MG/0.4 ML SYR SC SCH (09:00)
[2024-06-26] MEDS ORDERED: LevETIRAcetam 100 MG/ML 5ML ORAL SYR PT SCH (09:55)
[2024-06-26] MEDS ORDERED: Estradiol 1 MG Tab PT SCH ×2 (09:55→12:00)
[2024-06-26] MEDS ORDERED: OxyCODONE HCL 5 MG TAB PT PRN (09:55)
[2024-06-26] MEDS ORDERED: Cyclobenzaprine HCl 10 MG Tab PT SCH (09:55)
[2024-06-26] MEDS ORDERED: Bisacodyl 10 MG Supp PR PRN (15:00)
[2024-06-26] MEDS ORDERED: Docusate Sodium 100 MG UDC PT PRN (15:00)
[2024-06-26] MEDS ORDERED: Magnesium Hydroxide Conc 10 ML UDC PT PRN (15:00)
[2024-06-26 15:30] LABS: Phosphorus, Blood 3.3 mg/dL (2.5-4.9)
[2024-06-26 16:25] VITALS: BP 127/77
--- NOTE | 2024-06-26 18:12 | NUR ---
SHIFT SUMMARY PT RESTING QUIETLY AT START OF SHIFT. WOKE EASILY FOR CARE. PT CALMER TODAY. PT REMAINED CALM AND PLEASANT ALL DAY. PT'S CAME IN THIS MORNING FOR A WHILE. PT WAS HAPPY AND RESPONSIVE. MOSTLY YES AND NO. BED BATH AND LINEN CHANGE GIVEN THIS AM. DR DARDEN IN TO SEE PT WELL. HOME MEDICATIONS ORDERED AND GIVEN PER PEG TUBE. DIETARY CONSULT ALSO ORDERED AFTER HERE TO UPDATE ON HOME FEEDING PLAN. TUBE FEEDING TO RESUME BID. PT HAS CONTINUED TO DENY NEEDS SINCE GETTING HOME MEDICATIONS. LYING HF, WATCHING TV. ABLE TO PUSH BUTTONS SPOT SPRAYER LT. WILL CONTINUE TO MX.
[2024-06-26 20:43] VITALS: BP 137/81
[2024-06-26] MEDS ORDERED: NS 250 ML IV PRN (22:00)
[2024-06-27 05:47] VITALS: BP 122/80
[2024-06-27 05:50] LABS: BASOPHILS ABSOLUTE AUTO 0.01 K/mm3 (0.00-0.23); BASOPHILS PERCENT AUTO 0 % (0-2); EOSINOPHILS ABSOLUTE AUTO 0.09 K/mm3 (0.00-0.68); EOSINOPHILS PERCENT AUTO 2 % (0-6); Hematocrit 29.2 % (33.0-51.0); Hemoglobin 9.5 g/dL (11.5-16.0); IMMATURE GRAN ABSOLUTE AUTO 0.01 K/mm3 (0.00-0.10); IMMATURE GRAN PERCENT AUTO 0 % (0-1); LYMPHOCYTES ABSOLUTE AUTO 1.51 K/mm3 (0.84-5.20); LYMPHOCYTES PERCENT AUTO 38 % (21-46); MONOCYTES ABSOLUTE AUTO 0.47 K/mm3 (0.16-1.47); MONOCYTES PERCENT AUTO 12 % (4-13); Mean Corpuscular HGB 29.8 pg (26.0-34.0); Mean Corpuscular HGB Conc 32.5 g/dL (31.5-36.5); Mean Corpuscular Volume 92 fL (80-100); Mean Platelet Volume 10.3 fL (9.1-12.4); NEUTROPHILS ABSOLUTE AUTO 1.84 K/mm3 (1.96-9.15); NEUTROPHILS PERCENT AUTO 47 % (41-73); Platelet Count 217 K/mm3 (150-400); RDW Coefficient Variation 13.8 % (11.7-14.2); RDW Standard Deviation 46.2 fL (35.1-46.3); Red Blood Cell Count 3.19 M/mm3 (3.80-5.20); White Blood Cell Count 3.93 K/mm3 (4.00-11.30)
[2024-06-27] MEDS ORDERED: Levothyroxine Sodium 0.075 MG Tab PT SCH (06:00)
[2024-06-27 06:13] LABS: Bun/Creatinine Ratio 20.4 (12.0-20.0); Calcium, Blood 8.5 mg/dL (8.5-10.1); Creatinine, Blood 0.64 mg/dL (0.40-1.00); Magnesium, Blood 1.9 mg/dL (1.6-2.4); Potassium, Blood 3.6 mmol/L (3.5-5.5)
[2024-06-27 07:18] VITALS: BP 122/75
--- NOTE | 2024-06-27 11:04 | NUR ---
am note this rn assumed care at 0700. vital signs stable. tele sinus bradycardia at 55. patient is alert and oriented to self and person. patient can answer yes or no questions but has difficulty with making a sentence. denies chest pain/pressure, shortness of breath or pain at this time. patient did report pain in back and was medicated per emar orders. see shift assessment for fruther detials.
[2024-06-27 15:29] VITALS: BP 111/72
--- NOTE | 2024-06-27 17:49 | NUR ---
shift summary patient vitals remain stable. tele sinusbrady. patient to be NPO at 2am tomorrow 06/28/24 for imaging in the morning. patient to not have any narcotics after midnight tonight for the imaging tomorrow. no acute changes this shift. plan of care remains up to date
[2024-06-27 19:43] VITALS: BP 125/69
[2024-06-28 05:25] VITALS: BP 116/74
[2024-06-28 05:49] LABS: BASOPHILS ABSOLUTE AUTO 0.01 K/mm3 (0.00-0.23); BASOPHILS PERCENT AUTO 0 % (0-2); EOSINOPHILS PERCENT AUTO 2 % (0-6); Hematocrit 29.1 % (33.0-51.0); Hemoglobin 9.5 g/dL (11.5-16.0); IMMATURE GRAN ABSOLUTE AUTO 0.01 K/mm3 (0.00-0.10); IMMATURE GRAN PERCENT AUTO 0 % (0-1); LYMPHOCYTES PERCENT AUTO 32 % (21-46); MONOCYTES ABSOLUTE AUTO 0.54 K/mm3 (0.16-1.47); MONOCYTES PERCENT AUTO 12 % (4-13); Mean Corpuscular HGB 30.3 pg (26.0-34.0); Mean Corpuscular HGB Conc 32.6 g/dL (31.5-36.5); Mean Corpuscular Volume 93 fL (80-100); Mean Platelet Volume 10.8 fL (9.1-12.4); NEUTROPHILS ABSOLUTE AUTO 2.54 K/mm3 (1.96-9.15); NEUTROPHILS PERCENT AUTO 54 % (41-73); Platelet Count 252 K/mm3 (150-400); RDW Coefficient Variation 13.6 % (11.7-14.2); RDW Standard Deviation 45.7 fL (35.1-46.3); Red Blood Cell Count 3.14 M/mm3 (3.80-5.20)
[2024-06-28 06:34] LABS: Alanine Aminotransfer (ALT/SGP 16 U/L (12-78); Albumin, Blood 2.4 g/dL (3.4-5.0); Albumin/Globulin Ratio 0.6 (0.8-1.8); Alk Phos 83 U/L (50-136); Anion Gap 10 mmol/L (3-11); Aspartate Aminotrans (AST/SGOT 13 U/L (12-37); Bilirubin, Direct <0.1 mg/dL (0.0-0.3); Bilirubin, Indirect Unable to Calculate mg/dL (0.1-0.7); Bilirubin, Total 0.3 mg/dL (0.1-1.0); Blood Urea Nitrogen 17 mg/dL (8-24); Bun/Creatinine Ratio 25.1 (12.0-20.0); CO2, Blood 27 mmol/L (21-32); Calcium, Blood 8.6 mg/dL (8.5-10.1); Chloride, Blood 109 mmol/L (98-108); Creatinine, Blood 0.68 mg/dL (0.40-1.00); Globulin, Blood 4.1 g/dL (2.2-4.0); Glomerular Filtration Rate 98 (60-); Glucose, Blood 99 mg/dL (70-99); Potassium, Blood 3.6 mmol/L (3.5-5.5); Sodium, Blood 142 mmol/L (136-145); Total Protein, Blood 6.5 g/dL (6.4-8.2)
[2024-06-28 07:25] VITALS: BP 118/72
[2024-06-28] MEDS ORDERED: VISBIOME 112.51 EACH PO (13:48)
[2024-06-28] MEDS ORDERED: CEPH500 PO (13:49)
[2024-06-28] MEDS ORDERED: LOPE2C PO (13:49)
--- NOTE | 2024-06-28 14:24 | NUR ---
DISCHARGE NOTE MS FELIZ GOT A HIDA SCAN THIS MORNING. ON RETURN SHE HAD LARGE DIARRHEA STOOL. LIFT FROM STRETCHER TO BED, FULL CLEANSING DONE. PEG TUBE FLUSHED EASILY VIA GRAVITY AND GIVEN AM JEVITY TUBE FEED VIA FEEDING PUMP AT 400CC/HR. PT TOLERATED WELL WITHOUT NAUSEA OR VOMITING. PT HAD PAIN IN HER ABDOMEN ON RETURN FROM SCAN AND WAS EFFECTIVELY MEDICATED WITH OXY 10MG VIA PEG TUBE. READY FOR DISCHARGE AT 1420, FAMILY VERBALISED UNDERSTANDING OF WRITTEN AND VERBAL DISCHARGE INSTRUCTIONS. POWERGLIDE REMOVED INTACT. FAMILY HAD NO FURTHER QUESTIONS OR CONCERNS AT TIME OF DISCHARGE.
== END 2024-06-28 14:29 | disposition home or self-care (01) | DRG 871 ==
LOC: ER 09:07 → MEDS 11:29
PROVIDERS: Physician Assistant; Student in an Organized Health Care Education/Training Program; ADMIT Family Medicine
DX: A41.9 Sepsis, unspecified organism (principal); J18.9 Pneumonia, unspecified organism; J96.01 Acute respiratory failure with hypoxia; J44.1 Chronic obstructive pulmonary disease with (acute) exacerbation; J44.0 Chronic obstructive pulmonary disease with (acute) lower respiratory infection; K52.1 Toxic gastroenteritis and colitis; J98.11 Atelectasis; I10 Essential (primary) hypertension; G40.909 Epilepsy, unspecified, not intractable, without status epilepticus; M79.7 Fibromyalgia; F32.A Depression, unspecified; H54.62 Unqualified visual loss, left eye, normal vision right eye; F41.9 Anxiety disorder, unspecified; I48.0 Paroxysmal atrial fibrillation; K82.8 Other specified diseases of gallbladder; T36.95XA Adverse effect of unspecified systemic antibiotic, initial encounter; Z98.890 Other specified postprocedural states; Z88.8 Allergy status to other drugs, medicaments and biological substances; Z88.0 Allergy status to penicillin; Z88.5 Allergy status to narcotic agent; Z79.890 Hormone replacement therapy; Z79.899 Other long term (current) drug therapy; E89.0 Postprocedural hypothyroidism; Z90.710 Acquired absence of both cervix and uterus; R05.3 Chronic cough
CPT/HCPCS: 0202U; 36415; 71046; 74176; 76705; 78226; 80048; 80053; 80076; 83605; 83735; 84100; 85025; 87040; 93005; 93010; 94640; 94664; 94760; 99285-25; A9270; A9537; C1751; J0696; J1650; J3010; J7030; J7050; J7060; J7120

== ENCOUNTER → 2024-09-11 | Outpatient (CLI) | payer MEDICARE, OTHER ==
[~2024-09-11] MED LIST changes: +LOPE2C PO; +VISBIOME 112.51 EACH PO
== END ==
LOC: LAB 16:54 → LAB SHORT 16:54
DX: R39.89 Other symptoms and signs involving the genitourinary system (principal)
CPT/HCPCS: 87077; 87086; 87186

== ENCOUNTER 2024-09-19 07:41 | Emergency (ER) | payer MEDICARE, OTHER ==
[~2024-09-19] VITALS: Ht 170.2 cm; Wt 64.0 kg
[2024-09-19 10:16] LABS: BASOPHILS ABSOLUTE AUTO 0.01 K/mm3 (0.00-0.23); BASOPHILS PERCENT AUTO 0 % (0-2); EOSINOPHILS ABSOLUTE AUTO 0.05 K/mm3 (0.00-0.68); EOSINOPHILS PERCENT AUTO 2 % (0-6); Hematocrit 37.1 % (33.0-51.0); IMMATURE GRAN PERCENT AUTO 0 % (0-1); LYMPHOCYTES ABSOLUTE AUTO 1.43 K/mm3 (0.84-5.20); LYMPHOCYTES PERCENT AUTO 43 % (21-46); MONOCYTES ABSOLUTE AUTO 0.25 K/mm3 (0.16-1.47); MONOCYTES PERCENT AUTO 8 % (4-13); Mean Corpuscular HGB 30.2 pg (26.0-34.0); Mean Corpuscular HGB Conc 32.3 g/dL (31.5-36.5); Mean Corpuscular Volume 93 fL (80-100); Mean Platelet Volume 11.3 fL (9.1-12.4); NEUTROPHILS ABSOLUTE AUTO 1.56 K/mm3 (1.96-9.15); NEUTROPHILS PERCENT AUTO 47 % (41-73); Platelet Count 208 K/mm3 (150-400); RDW Coefficient Variation 13.5 % (11.7-14.2); Red Blood Cell Count 3.98 M/mm3 (3.80-5.20)
[2024-09-19 10:40] LABS: Albumin, Blood 3.3 g/dL (3.4-5.0); Albumin/Globulin Ratio 0.7 (0.8-1.8); Bilirubin, Total 0.3 mg/dL (0.1-1.0); Bun/Creatinine Ratio 17.3 (12.0-20.0); Calcium, Blood 9.4 mg/dL (8.5-10.1); Creatinine, Blood 1.1 mg/dL (0.40-1.00); Globulin, Blood 4.7 g/dL (2.2-4.0); Potassium, Blood 4.7 mmol/L (3.5-5.5)
[2024-09-19 11:01] LABS: Source, Urine Clean Catch
[2024-09-19 11:09] LABS: Appearance, Urine Clear (Clear); Bilirubin, Urine Neg (Neg); Blood, Urine 1+ (Neg); Color, Urine Yellow (P-Yellow); Glucose Qualitative, Urine Neg (Neg); Ketones, Urine Neg (Neg); Leukocyte Esterase, Urine 1+ (Neg); Nitrite, Urine Neg (Neg); Protein, Urine Neg (Neg); Specific Gravity, Urine 1.015 (1.003-1.022); Urobilinogen, Urine NORM (Normal)
[2024-09-19 11:15] LABS: Bacteria Few /hpf; Squamous Epithelial Cells Few /hpf (Few)
[2024-09-19 12:09] VITALS: BP 132/84
== END 2024-09-19 12:11 | disposition home or self-care (01) ==
LOC: ER 07:41
PROVIDERS: Emergency Medicine; Student in an Organized Health Care Education/Training Program
DX: L25.9 Unspecified contact dermatitis, unspecified cause (principal); R10.2 Pelvic and perineal pain; E03.9 Hypothyroidism, unspecified; Z79.899 Other long term (current) drug therapy; Z88.6 Allergy status to analgesic agent; Z88.0 Allergy status to penicillin; Z88.5 Allergy status to narcotic agent; Z88.8 Allergy status to other drugs, medicaments and biological substances
CPT/HCPCS: 51701; 74018; 80053; 81001; 85025; 87077; 87086; 87186; 99284-25

== ENCOUNTER 2024-10-08 22:20 | Emergency (ER) | payer MEDICARE, OTHER ==
[~2024-10-08] VITALS: Ht 170.2 cm; Wt 65.8 kg
[2024-10-09 00:34] LABS: BASOPHILS PERCENT AUTO 0 % (0-2); EOSINOPHILS ABSOLUTE AUTO 0.03 K/mm3 (0.00-0.68); EOSINOPHILS PERCENT AUTO 1 % (0-6); Hematocrit 38.5 % (33.0-51.0); Hemoglobin 12.3 g/dL (11.5-16.0); IMMATURE GRAN PERCENT AUTO 0 % (0-1); LYMPHOCYTES ABSOLUTE AUTO 0.95 K/mm3 (0.84-5.20); LYMPHOCYTES PERCENT AUTO 28 % (21-46); MONOCYTES ABSOLUTE AUTO 0.19 K/mm3 (0.16-1.47); MONOCYTES PERCENT AUTO 6 % (4-13); Mean Corpuscular HGB 30.5 pg (26.0-34.0); Mean Corpuscular HGB Conc 31.9 g/dL (31.5-36.5); Mean Corpuscular Volume 96 fL (80-100); NEUTROPHILS PERCENT AUTO 65 % (41-73); Platelet Count 114 K/mm3 (150-400); RDW Coefficient Variation 14.2 % (11.7-14.2); RDW Standard Deviation 49.6 fL (35.1-46.3); Red Blood Cell Count 4.03 M/mm3 (3.80-5.20); White Blood Cell Count 3.37 K/mm3 (4.00-11.30)
[2024-10-09 00:50] LABS: Albumin, Blood 3.3 g/dL (3.4-5.0); Albumin/Globulin Ratio 0.7 (0.8-1.8); Bilirubin, Total 0.3 mg/dL (0.1-1.0); Bun/Creatinine Ratio 58.5 (12.0-20.0); Calcium, Blood 9.5 mg/dL (8.5-10.1); Creatinine, Blood 0.53 mg/dL (0.40-1.00); Globulin, Blood 4.6 g/dL (2.2-4.0); Potassium, Blood 4.8 mmol/L (3.5-5.5); Total Protein, Blood 7.9 g/dL (6.4-8.2)
[2024-10-09] MEDS ORDERED: NS 1,000 ML IV SCH (01:05)
[2024-10-09 01:52] LABS: Source, Urine Straight Cath
[2024-10-09 01:55] LABS: Bilirubin, Urine Neg (Neg); Blood, Urine Neg (Neg); Glucose Qualitative, Urine Neg (Neg); Ketones, Urine Neg (Neg); Leukocyte Esterase, Urine Neg (Neg); Nitrite, Urine Neg (Neg); Protein, Urine Neg (Neg); Urobilinogen, Urine NORM (Normal)
[2024-10-09 02:09] LABS: Appearance, Urine Clear (Clear); Color, Urine Yellow (P-Yellow)
[2024-10-09 03:30] VITALS: BP 134/72
== END 2024-10-09 03:45 | disposition home or self-care (01) ==
LOC: ER 22:20
PROVIDERS: Emergency Medicine
DX: R40.4 Transient alteration of awareness (principal); D72.819 Decreased white blood cell count, unspecified; D69.6 Thrombocytopenia, unspecified; R74.01 Elevation of levels of liver transaminase levels; E03.9 Hypothyroidism, unspecified; I10 Essential (primary) hypertension; Z79.899 Other long term (current) drug therapy; Z88.1 Allergy status to other antibiotic agents; Z88.6 Allergy status to analgesic agent; Z88.0 Allergy status to penicillin; Z88.5 Allergy status to narcotic agent; Z88.8 Allergy status to other drugs, medicaments and biological substances
CPT/HCPCS: 70450; 71046; 74019; 80053; 81003; 83605; 85025; 99284-25; J7030; P9612

== ENCOUNTER 2024-10-22 09:12 | Emergency (ER) | payer MEDICARE, OTHER ==
[~2024-10-22] VITALS: Ht 170.2 cm; Wt 65.3 kg
[2024-10-22 10:39] LABS: BASOPHILS ABSOLUTE AUTO 0.01 K/mm3 (0.00-0.23); BASOPHILS PERCENT AUTO 0 % (0-2); EOSINOPHILS ABSOLUTE AUTO 0.06 K/mm3 (0.00-0.68); EOSINOPHILS PERCENT AUTO 1 % (0-6); Hematocrit 42.7 % (33.0-51.0); Hemoglobin 14.1 g/dL (11.5-16.0); IMMATURE GRAN PERCENT AUTO 0 % (0-1); LYMPHOCYTES ABSOLUTE AUTO 1.33 K/mm3 (0.84-5.20); LYMPHOCYTES PERCENT AUTO 30 % (21-46); MONOCYTES ABSOLUTE AUTO 0.34 K/mm3 (0.16-1.47); MONOCYTES PERCENT AUTO 8 % (4-13); Mean Corpuscular HGB 30.7 pg (26.0-34.0); Mean Corpuscular Volume 93 fL (80-100); Mean Platelet Volume 12.5 fL (9.1-12.4); NEUTROPHILS ABSOLUTE AUTO 2.77 K/mm3 (1.96-9.15); NEUTROPHILS PERCENT AUTO 62 % (41-73); Platelet Count 148 K/mm3 (150-400); RDW Coefficient Variation 14.6 % (11.7-14.2); RDW Standard Deviation 49.3 fL (35.1-46.3); Red Blood Cell Count 4.59 M/mm3 (3.80-5.20); White Blood Cell Count 4.51 K/mm3 (4.00-11.30)
[2024-10-22 10:56] LABS: Albumin, Blood 3.7 g/dL (3.4-5.0); Albumin/Globulin Ratio 0.6 (0.8-1.8); Bilirubin, Total 0.5 mg/dL (0.1-1.0); Bun/Creatinine Ratio 28.9 (12.0-20.0); Creatinine, Blood 0.69 mg/dL (0.40-1.00); Globulin, Blood 5.8 g/dL (2.2-4.0); Potassium, Blood 5.4 mmol/L (3.5-5.5); Total Protein, Blood 9.5 g/dL (6.4-8.2)
[2024-10-22 11:51] VITALS: BP 113/72
== END 2024-10-22 11:59 | disposition home or self-care (01) ==
LOC: ER 09:12
PROVIDERS: Student in an Organized Health Care Education/Training Program
DX: R05.9 Cough, unspecified (principal); E03.9 Hypothyroidism, unspecified; H54.62 Unqualified visual loss, left eye, normal vision right eye; I10 Essential (primary) hypertension; I48.0 Paroxysmal atrial fibrillation; G40.909 Epilepsy, unspecified, not intractable, without status epilepticus; S06.9XAS Unspecified intracranial injury with loss of consciousness status unknown, sequela; Z87.891 Personal history of nicotine dependence; Z88.1 Allergy status to other antibiotic agents; Z88.6 Allergy status to analgesic agent; Z88.8 Allergy status to other drugs, medicaments and biological substances; Z88.0 Allergy status to penicillin; Z88.5 Allergy status to narcotic agent; Z79.890 Hormone replacement therapy; Z79.899 Other long term (current) drug therapy; Z59.89 Other problems related to housing and economic circumstances
CPT/HCPCS: 71046; 80053; 84484; 85025; 93005; 93010; 99284-25

== ENCOUNTER 2024-10-29 11:19 | Emergency (ER) | payer MEDICARE, OTHER ==
[~2024-10-29] VITALS: Ht 170.2 cm; Wt 65.3 kg
[2024-10-29 12:50] LABS: BASOPHILS ABSOLUTE AUTO 0.03 K/mm3 (0.00-0.23); BASOPHILS PERCENT AUTO 1 % (0-2); EOSINOPHILS ABSOLUTE AUTO 0.03 K/mm3 (0.00-0.68); EOSINOPHILS PERCENT AUTO 1 % (0-6); Hematocrit 40.9 % (33.0-51.0); Hemoglobin 13.7 g/dL (11.5-16.0); Mean Corpuscular HGB 31.1 pg (26.0-34.0); Mean Corpuscular HGB Conc 33.5 g/dL (31.5-36.5); Mean Corpuscular Volume 93 fL (80-100); Mean Platelet Volume 12.1 fL (9.1-12.4); Platelet Count 213 K/mm3 (150-400); RDW Coefficient Variation 14.9 % (11.7-14.2); RDW Standard Deviation 48.7 fL (35.1-46.3); Red Blood Cell Count 4.41 M/mm3 (3.80-5.20); White Blood Cell Count 4.28 K/mm3 (4.00-11.30)
[2024-10-29 12:56] LABS: IMMATURE GRAN PERCENT AUTO 2 % (0-1); LYMPHOCYTES ABSOLUTE AUTO 0.75 K/mm3 (0.84-5.20); LYMPHOCYTES PERCENT AUTO 18 % (21-46); MONOCYTES ABSOLUTE AUTO 0.44 K/mm3 (0.16-1.47); MONOCYTES PERCENT AUTO 10 % (4-13); NEUTROPHILS ABSOLUTE AUTO 2.93 K/mm3 (1.96-9.15); NEUTROPHILS PERCENT AUTO 69 % (41-73)
[2024-10-29 13:06] LABS: Albumin, Blood 3.7 g/dL (3.4-5.0); Albumin/Globulin Ratio 0.6 (0.8-1.8); Bilirubin, Total 0.6 mg/dL (0.1-1.0); Bun/Creatinine Ratio 24.4 (12.0-20.0); Calcium, Blood 9.7 mg/dL (8.5-10.1); Creatinine, Blood 0.82 mg/dL (0.40-1.00); Globulin, Blood 5.7 g/dL (2.2-4.0); Potassium, Blood 4.1 mmol/L (3.5-5.5); Total Protein, Blood 9.4 g/dL (6.4-8.2)
[2024-10-29 13:09] LABS: BASOPHILS PERCENT MAN 0 % (0-2); EOSINOPHILS ABSOLUTE MAN 0.04 K/mm3 (0.00-0.68); EOSINOPHILS PERCENT MAN 1 % (0-6); LYMPHOCYTES % ATYPICAL MANUAL 2 % (0-0); LYMPHOCYTES ABSOLUTE MAN 0.98 K/mm3 (0.84-5.20); LYMPHOCYTES PERCENT MAN 21 % (21-46); MONOCYTES ABSOLUTE MAN 0.47 K/mm3 (0.16-1.47); MONOCYTES PERCENT MAN 11 % (4-13); NEUTROPHILS ABSOLUTE MAN 2.78 K/mm3 (1.96-9.15); SEG NEUTROPHILS PERCENT MAN 65 % (41-73); TOTAL CELLS COUNTED 100
[2024-10-29 17:43] LABS: Source, Urine Clean Catch
[2024-10-29 18:03] LABS: Appearance, Urine Clear (Clear); Bilirubin, Urine Neg (Neg); Blood, Urine Neg (Neg); Color, Urine Yellow (P-Yellow); Glucose Qualitative, Urine Neg (Neg); Ketones, Urine 1+ (Neg); Leukocyte Esterase, Urine Neg (Neg); Nitrite, Urine Neg (Neg); Protein, Urine Neg (Neg); Specific Gravity, Urine 1.015 (1.003-1.022); Urobilinogen, Urine 1+ (Normal)
[2024-10-29] MEDS ORDERED: HYDPAM25 PO (18:49)
[2024-10-29 19:03] VITALS: BP 112/83
== END 2024-10-29 19:03 | disposition home or self-care (01) ==
LOC: ER 11:19
PROVIDERS: Physician Assistant
DX: R45.1 Restlessness and agitation (principal); R41.844 Frontal lobe and executive function deficit; S06.89AS Other specified intracranial injury with loss of consciousness status unknown, sequela; E03.9 Hypothyroidism, unspecified; H54.62 Unqualified visual loss, left eye, normal vision right eye; I10 Essential (primary) hypertension; I48.0 Paroxysmal atrial fibrillation; G40.909 Epilepsy, unspecified, not intractable, without status epilepticus; Z87.891 Personal history of nicotine dependence; Z88.1 Allergy status to other antibiotic agents; Z88.6 Allergy status to analgesic agent; Z88.0 Allergy status to penicillin; Z88.5 Allergy status to narcotic agent; Z88.8 Allergy status to other drugs, medicaments and biological substances; Z79.890 Hormone replacement therapy; Z79.899 Other long term (current) drug therapy
CPT/HCPCS: 51701; 70450; 80053; 81003; 85025; 99285-25

== ENCOUNTER 2024-11-27 09:57 | Inpatient (IN) | payer MEDICARE, OTHER ==
[~2024-11-27] VITALS: Ht 170.2 cm; Wt 68.0 kg
[~2024-11-27 09:57] MED LIST changes: +HYDPAM25 PO; +LEVSOD100 PO; -LEVSOD75 PO
[2024-11-27 11:01] LABS: BASOPHILS ABSOLUTE AUTO 0.02 K/mm3 (0.00-0.23); BASOPHILS PERCENT AUTO 0 % (0-2); EOSINOPHILS ABSOLUTE AUTO 0.02 K/mm3 (0.00-0.68); EOSINOPHILS PERCENT AUTO 0 % (0-6); Hematocrit 33.3 % (33.0-51.0); Hemoglobin 10.8 g/dL (11.5-16.0); IMMATURE GRAN ABSOLUTE AUTO 0.02 K/mm3 (0.00-0.10); IMMATURE GRAN PERCENT AUTO 0 % (0-1); LYMPHOCYTES ABSOLUTE AUTO 1.41 K/mm3 (0.84-5.20); LYMPHOCYTES PERCENT AUTO 12 % (21-46); MONOCYTES ABSOLUTE AUTO 1.13 K/mm3 (0.16-1.47); MONOCYTES PERCENT AUTO 10 % (4-13); Mean Corpuscular HGB Conc 32.4 g/dL (31.5-36.5); Mean Corpuscular Volume 96 fL (80-100); Mean Platelet Volume 12.7 fL (9.1-12.4); NEUTROPHILS ABSOLUTE AUTO 8.82 K/mm3 (1.96-9.15); NEUTROPHILS PERCENT AUTO 77 % (41-73); Platelet Count 144 K/mm3 (150-400); RDW Standard Deviation 55.9 fL (35.1-46.3); Red Blood Cell Count 3.48 M/mm3 (3.80-5.20); White Blood Cell Count 11.42 K/mm3 (4.00-11.30)
[2024-11-27 11:34] LABS: Albumin, Blood 2.9 g/dL (3.4-5.0); Albumin/Globulin Ratio 0.6 (0.8-1.8); Calcium, Blood 8.8 mg/dL (8.5-10.1); Creatinine, Blood 0.9 mg/dL (0.40-1.00); Globulin, Blood 4.9 g/dL (2.2-4.0); Potassium, Blood 4.1 mmol/L (3.5-5.5); Total Protein, Blood 7.8 g/dL (6.4-8.2)
[2024-11-27] MEDS ORDERED: CefTRIAXone Sodium 1,000 MG in NS 50 ML IV ONE (11:40)
[2024-11-27 12:01] LABS: Influenza A, PCR NEGATIVE (NEGATIVE); Influenza B, PCR NEGATIVE (NEGATIVE); Resp Syncytial Virus, PCR NEGATIVE (NEGATIVE); SARS-Cov-2 (COVID-19) PCR, MMC NEGATIVE (NEGATIVE)
[2024-11-27] MEDS ORDERED: FLU VACC TS2024-25(6MOS UP)/PF 45 MCG/0.5 ML SYRINGE IM PRN (12:35)
[2024-11-27] MEDS ORDERED: Estradiol 1 MG Tab PO SCH (14:15)
[2024-11-27] MEDS ORDERED: Loperamide HCl 2 MG Cap PO PRN (14:20)
[2024-11-27] MEDS ORDERED: HydrOXYzine Pamoate 25 MG Cap PO PRN (14:20)
[2024-11-27] MEDS ORDERED: Loperamide HCl 2 MG Cap PT PRN (14:25)
[2024-11-27] MEDS ORDERED: HydrOXYzine Pamoate 25 MG Cap PT PRN (14:25)
[2024-11-27] MEDS ORDERED: Azithromycin 500 MG in NS 250 ML IV ONE ×2 (16:05→23:30)
[2024-11-27 16:28] VITALS: BP 138/76
--- NOTE | 2024-11-27 16:36 | NUR ---
ADMIT PT BROUGHT TO ROOM WITH FAMLY AT BEDSIDE. PT BRIEF CHANGED. BED ALARM IN PLACE. PT HISTORY AND MEDICATIONS CONFIRMED WITH HER DAUGHTER AND GRANDDAUGHTER. PT CHRONICALLY HUMS/MOAN, VARYING IN VOLUME. FAMILY STATES THIS IS NORMAL FOR HER. PT SATING IN THE 90S ON 3L O2 VIA NC. OTHERWISE RESTING IN BED NOW, APPEARS COMFORTABLE.
--- NOTE | 2024-11-27 18:16 | NUR ---
SHIFT SUMMARY PT ADMITTED TODAY. SETTLED DOWN AND QUIET WATCHING TV. SATING IN THE 90S ON 2L O2 VIA NC. IV ACCESS LOST. UNABLE TO BE REESTABLISHED, LAB UNABLE TO DRAW ALSO. REQUEST FOR PG MADE TO CHARGE NURSE. NO IV PLACED YET. SACK MAKER CONSULT PLACED FOR FEED ORDERS, DR. CRUZ NOTIFIED THAT THEY ARE OUT OF OFFICE AND THIS WILL NOT HAPPEN UNTIL TOMORROW. PT NORMALLY GETS 3 CANS OF JEVITY 1.2 WITH 16 OUNCES VIA GRAVITY IN THE AM AND 2 CANS OF JEVITY 1.2 WITH 16-24 OUNCES OF WATER AT NIGHT PER FAMILY. PLAN TO GIVE SOME WATER THROUGH [facility] FOR HYDRATION TONIGHT. NURSE NOTIFY PLACED TO REFLECT THIS. RASH ON ABD UPON ADMISSION. PHARMACY NOTIFIED.
[2024-11-27] MEDS ORDERED: NS 250 ML IV PRN (19:45)
[2024-11-27] MEDS ORDERED: Lactated Ringer's 1,000 ML IV SCH (20:00)
[2024-11-27 20:09] VITALS: BP 110/71
[2024-11-27] MEDS ORDERED: OxyCODONE HCL 5 MG TAB PO SCH (21:00)
[2024-11-27] MEDS ORDERED: OxyCODONE HCL 5 MG TAB PT SCH (21:00)
[2024-11-27] MEDS ORDERED: Lactobacil 2-S.Thermo-Bifido 1 1 Cap PT SCH (21:00)
[2024-11-28 02:35] VITALS: BP 121/60
[2024-11-28] MEDS ORDERED: Levothyroxine Sodium 0.075 MG Tab PO SCH (06:00)
[2024-11-28] MEDS ORDERED: Levothyroxine Sodium 0.075 MG Tab PT SCH (06:00)
[2024-11-28 06:12] LABS: BASOPHILS ABSOLUTE AUTO 0.02 K/mm3 (0.00-0.23); BASOPHILS PERCENT AUTO 0 % (0-2); EOSINOPHILS ABSOLUTE AUTO 0.07 K/mm3 (0.00-0.68); EOSINOPHILS PERCENT AUTO 1 % (0-6); Hematocrit 26.4 % (33.0-51.0); Hemoglobin 8.7 g/dL (11.5-16.0); IMMATURE GRAN ABSOLUTE AUTO 0.01 K/mm3 (0.00-0.10); IMMATURE GRAN PERCENT AUTO 0 % (0-1); LYMPHOCYTES ABSOLUTE AUTO 1.11 K/mm3 (0.84-5.20); LYMPHOCYTES PERCENT AUTO 20 % (21-46); MONOCYTES ABSOLUTE AUTO 0.56 K/mm3 (0.16-1.47); MONOCYTES PERCENT AUTO 10 % (4-13); Mean Corpuscular HGB 31.4 pg (26.0-34.0); Mean Corpuscular Volume 95 fL (80-100); Mean Platelet Volume 12.4 fL (9.1-12.4); NEUTROPHILS ABSOLUTE AUTO 3.68 K/mm3 (1.96-9.15); NEUTROPHILS PERCENT AUTO 67 % (41-73); Platelet Count 98 K/mm3 (150-400); RDW Coefficient Variation 15.7 % (11.7-14.2); RDW Standard Deviation 54.8 fL (35.1-46.3); Red Blood Cell Count 2.77 M/mm3 (3.80-5.20); White Blood Cell Count 5.45 K/mm3 (4.00-11.30)
[2024-11-28 06:38] LABS: Albumin, Blood 2.4 g/dL (3.4-5.0); Albumin/Globulin Ratio 0.5 (0.8-1.8); Bilirubin, Total 0.6 mg/dL (0.1-1.0); Bun/Creatinine Ratio 24.7 (12.0-20.0); Calcium, Blood 8.7 mg/dL (8.5-10.1); Creatinine, Blood 0.61 mg/dL (0.40-1.00); Globulin, Blood 4.4 g/dL (2.2-4.0); Phosphorus, Blood 2.8 mg/dL (2.5-4.9); Potassium, Blood 3.8 mmol/L (3.5-5.5); Total Protein, Blood 6.8 g/dL (6.4-8.2)
--- NOTE | 2024-11-28 06:46 | NUR ---
Shift Summary Powerglide placed in TAYLOR, I also called the hospitalist who ordered IV fluids as pt had 3.2 lactic. She has a very weak and congested cough but is breathing well overall, SPO2>92% on 2L NC. Pt denied having any pain t/o the night and declined her scheduled 2100 pain meds and probiotic. Purewick in place draining incontinent voids. Pt did have one BM. She is AOx2 and cooperative with care although pt care is painful for her and she has a loud moan which her family states is normal.
[2024-11-28 08:21] VITALS: BP 127/80
[2024-11-28] MEDS ORDERED: Enoxaparin 40 MG/0.4 ML SYR SC SCH (09:00)
[2024-11-28] MEDS ORDERED: Cyclobenzaprine HCl 10 MG Tab PO SCH (09:00)
[2024-11-28] MEDS ORDERED: LevETIRAcetam 100 MG/ML 5ML ORAL SYR PT SCH (09:00)
[2024-11-28] MEDS ORDERED: Cyclobenzaprine HCl 10 MG Tab PT SCH (09:00)
[2024-11-28] MEDS ORDERED: LevETIRAcetam 500 MG Tab PO SCH (09:00)
--- NOTE | 2024-11-28 10:21 | NUR ---
RN NOTE PT HAS NOT RECEIVED ANY TUBE FEEDING. I SPOKE WITH LILY HER WHO SAID SHE GETS JEVITY 1.2, 3 CARTONS IN THE MORNING WITH WATER FLUSH AND THE SAME IN THE AFTERNOON, AND THAT SHE GETS A "HALF A BAG" OF WATER AT 1PM. I SPOKE WITH KERRI MANAGER NICU, WAITING ON TAHIRA MANAGER NICU FOR THIS PT ORDER.
[2024-11-28] MEDS ORDERED: LevoFLOXacin 750 MG/D5W 150ML 150 ML IV SCH (10:30)
[2024-11-28] MEDS ORDERED: CefTRIAXone Sodium 1,000 MG in NS 100 ML IV SCH (12:00)
[2024-11-28] MEDS ORDERED: Azithromycin 200 MG/5 ML SUSP 5ML UDC PT SCH (12:00)
--- NOTE | 2024-11-28 12:46 | NUR ---
called dr walker re ekg. no new orders.
[2024-11-28] MEDS ORDERED: Docusate Sodium Liquid 100 MG UDC PT PRN (13:05)
[2024-11-28] MEDS ORDERED: Magnesium Hydroxide Conc 10 ML UDC PT PRN (13:05)
[2024-11-28] MEDS ORDERED: Bisacodyl 10 MG Supp PR PRN (13:05)
[2024-11-28] MEDS ORDERED: OxyCODONE HCL 5 MG TAB PO PRN (13:25)
[2024-11-28 15:37] VITALS: BP 127/61
--- NOTE | 2024-11-28 16:14 | NUR ---
SHIFT SUMMARY MS FELIZ IS ON 1L O2 NC, SATS IN THE 90S ON SPOT CHECKS. OCCASIONAL COUGH. NON-VERBAL, ANSWERS YES/NO APPROPRIATELY WITH NODS/ SHAKES OF HEAD. SHE HAS DENIED HAVING PAIN TODAY AND HAS DECLINED PAIN MEDICATIONS. 2 STAFF ASSIST TO TURN AND REPOSITION Q2HRS. MEDS VIA G TUBE, FLUSH IN VIA GRAVITY. 2 CANS OF JEVITY 1.2 GIVEN VIA BOLUS FEED ON [place] PUMP WITH WATER FLUSH, TOLERATED WELL. HOB AT 45 DEGREES. GOOD UOP WITH PUREWICK IN PLACE. BED LOW, CALL LIGHT IN REACH.
--- NOTE | 2024-11-28 16:43 | NUR ---
MD CALL TELEPHONE ORDER FORM DR CRUZ TO STOP LR IVF. READ BACK DONE AND ORDER ENTERED INTO [facility].
[2024-11-28 19:55] VITALS: BP 127/61
[2024-11-29 03:18] VITALS: BP 133/63
--- NOTE | 2024-11-29 03:45 | NUR ---
SHIFT SUMMARY PATIENT HAS BEEN SLEEPING INTERMITTANTLY THROUGHOUT THE NIGHT. TUBE FEEDING INFUSED WITHOUT COMPLICATIONS. PATIENT HAD 2 VERY LARGE AND LOOSE BOWEL MOVEMENTS ON THIS SHIFT. SHE DENIES PAIN. VITAL SIGNS ARE STABLE. SAFETY PRECAUTIONS ARE BEING MAINTAINED.
[2024-11-29 05:19] LABS: BASOPHILS ABSOLUTE AUTO 0.01 K/mm3 (0.00-0.23); BASOPHILS PERCENT AUTO 0 % (0-2); EOSINOPHILS ABSOLUTE AUTO 0.06 K/mm3 (0.00-0.68); EOSINOPHILS PERCENT AUTO 1 % (0-6); Hematocrit 26.7 % (33.0-51.0); Hemoglobin 8.7 g/dL (11.5-16.0); IMMATURE GRAN ABSOLUTE AUTO 0.02 K/mm3 (0.00-0.10); IMMATURE GRAN PERCENT AUTO 1 % (0-1); LYMPHOCYTES ABSOLUTE AUTO 1.03 K/mm3 (0.84-5.20); LYMPHOCYTES PERCENT AUTO 24 % (21-46); MONOCYTES ABSOLUTE AUTO 0.52 K/mm3 (0.16-1.47); MONOCYTES PERCENT AUTO 12 % (4-13); Mean Corpuscular HGB 31.3 pg (26.0-34.0); Mean Corpuscular HGB Conc 32.6 g/dL (31.5-36.5); Mean Corpuscular Volume 96 fL (80-100); Mean Platelet Volume 12.9 fL (9.1-12.4); NEUTROPHILS ABSOLUTE AUTO 2.68 K/mm3 (1.96-9.15); NEUTROPHILS PERCENT AUTO 62 % (41-73); Platelet Count 102 K/mm3 (150-400); RDW Coefficient Variation 15.6 % (11.7-14.2); Red Blood Cell Count 2.78 M/mm3 (3.80-5.20); White Blood Cell Count 4.32 K/mm3 (4.00-11.30)
[2024-11-29 05:39] LABS: Albumin, Blood 2.4 g/dL (3.4-5.0); Anion Gap 9 mmol/L (3-11); Blood Urea Nitrogen 17 mg/dL (8-24); Bun/Creatinine Ratio 24.6 (12.0-20.0); CO2, Blood 30 mmol/L (21-32); Calcium, Blood 8.9 mg/dL (8.5-10.1); Chloride, Blood 106 mmol/L (98-108); Creatinine, Blood 0.69 mg/dL (0.40-1.00); Glomerular Filtration Rate 97 (60-); Glucose, Blood 103 mg/dL (70-99); Magnesium, Blood 1.9 mg/dL (1.6-2.4); Phosphorus, Blood 3.3 mg/dL (2.5-4.9); Potassium, Blood 3.7 mmol/L (3.5-5.5); Sodium, Blood 141 mmol/L (136-145)
[2024-11-29 08:23] VITALS: BP 143/109
--- NOTE | 2024-11-29 08:30 | NUR ---
Pt laying in bed awake, answers yes/no, alert to self, follows some commands, lungs are clear t/o, on 2 liters 02 via n/c, resp yvonne and unlabored, no cough noted, hrr, no edema noted, ppp+2, cap refill <3 sec, vs stable, afebrile, power glide to brigette site is clear and patent, btx3, abd flat soft nontender, has peg tube to left abd, flushes well, has 30ml residule of tube feed, skin c/w/d, moves arms a bit, tends to grab things, pupils are looking tward nose, started tube feed, pt is sitting up over 30 degrees, denies any nausea, call light in reach.
[2024-11-29 16:40] VITALS: BP 125/79
--- NOTE | 2024-11-29 18:45 | NUR ---
Pt has had very loose stool this am, and a small this evening, she is tearful after being moved in bed for brief change. gave pain meds as ordered, continues to moan, heating pad applied, repositioned several times to try to make her more comfortable. she says meds not helping, call to Dr. Mcginnis, [place] [facility] [place]. call light in reach
[2024-11-29 19:29] VITALS: BP 123/84
[2024-11-30] MEDS ORDERED: FentaNYL Citrate 50 MCG/ML 2 ML Injection IV ONE (02:35)
[2024-11-30 04:54] VITALS: BP 130/85
--- NOTE | 2024-11-30 05:08 | NUR ---
SHIFT SUMMARY: PT AOX2-3 DIFFICULT TO ASSESS. ABLE TO RESPOND TO QUESTIONS WITH YES OR NO, AND SOME SMALL PHRASES. CALLS APPROPRIATELY. HAD AN EPISODE OF SEVERE PAIN, MEDICATED PER EMR. TOLERATED FEEDS AND MEDICATIONS THROUGH THE G TUBE WO COMPLAINTS. BRIEF CHECKED, AND PT HAD A LOOSE STOOL. CLEANED UP AND THEN HAD A BOUGHT OF SEVERE PAIN AND CRYING. PROVIDER NOTIFIED AND MEDICATION GIVEN FOR BREAK THROUGH PAIN. PT WAS ABLE TO SLEEP AFTER. PT FOLLOWS COMMANDS AND IS COOPERATIVE IN CARE. PT IN BED SLEEPING, BED IN LOWEST POSITION, CALL LIGHT IN REACH. CONTINUING CARE.
[2024-11-30 07:37] VITALS: BP 130/80
[2024-11-30] MEDS ORDERED: Estradiol 1 MG Tab PT SCH (09:00)
[2024-11-30] MEDS ORDERED: Morphine Sulfate 4 MG/1 ML Injection IV ONE (11:10)
[2024-11-30] MEDS ORDERED: HYDHCL25 PO (12:05)
[2024-11-30] MEDS ORDERED: Morphine Sulfate 4 MG/1 ML Injection IV PRN (12:15)
--- NOTE | 2024-12-01 01:04 | NUR ---
NURSING NOTE: PT SLEEPING AND REFUSED MEDICATION AND FEEDINGS THIS EVENING. DAY SHIFT NURSE REPORTS THAT INSURANCE CLAIMS EXAMINER STATES THIS IS NORMAL AND TO NOT WAKE HER OR FORCE HER TO DO THINGS WHILE RESTING. PT DID VERBALIZE "NO" WHEN ASKED IF RN COULD ACCESS THE G TUBE FOR MEDICATIONS OR A FEED. PT SLEEPING IN RECLINER, CALL LIGHT IN REACH. CONTINUING CARE.
[2024-12-01 05:25] VITALS: BP 132/73
--- NOTE | 2024-12-01 05:55 | NUR ---
SHIFT SUMMARY: PT AOX2 TO SELF AND PLACE, DIFFICULT TO ASSESS DUE TO TBI. PT EXTREMELY TIRED AND IRRITABLE IN THE BEGINNING OF SHIFT. INSTRUCED BY DAY SHIFT THAT GRAND DAUGHTER/ COSMETOLOGY PROFESSOR EXPLAINED THAT IF SHE REFUSES JUST TO LET HER SIT UNTIL SHE IS READY OR SHE HAS EXTREME DISTRESS. PT ORIGINALLY REFUSED EVENING FEED AND MEDICATIONS. SEE PREVIOUS NOTE. THIS MORNING PT VERY PLEASANT AND COOPERATIVE WITH CARE. ALLOWED US TO GET HER UP AND CHANGE HER, AMBULATED WITH 1PA AND GAIT BELT + FWW BACK TO BED. NO BOWEL MOVEMENT. CLEANED AND NOW SITTING COMFORTABLY AT EDGE OF BED. PT DENIES PAIN OR DISCOMFORT. RUNNING THE EVENING FEED NOW. PT SITTING AT EDGE OF BED WITH BED ALARM ON. CALL LIGHT IN REACH, AND BED IN LOWEST POSITION. CONTINUING CARE.
[2024-12-01 07:15] VITALS: BP 139/92
[2024-12-01] MEDS ORDERED: LEVO750 PO (11:07)
[2024-12-01] MEDS ORDERED: VISBIOME 112.51 EACH PO (11:08)
--- NOTE | 2024-12-01 11:49 | NUR ---
1147 FAMILY HERE DISCHARGE INSTRUCTIONS REVIEWED WITH PT AND FAMILY, NO QUESTIONS REGARDING DISCHARGE. POWERGLIDE REMOVED INTACT.
--- NOTE | 2024-12-01 12:43 | NUR ---
DISCHARGE SUMMARY PATIENT DISCHARGED THIS SHIFT WITH GRANDDAUGHTER TO TRANSPORT HER HOME. DISHCARGE PACKET GIVEN AND REVIEWED WITH FAMILY, MEDS FAXED TO [facility], QUESTIONS ANSWERED, VERBALIZED UNDERSTANDING. POWERGLIDE REMOVED WITHOUT COMPLICATION BY BREAK NURSE.
== END 2024-12-01 11:48 | disposition home or self-care (01) | DRG 871 ==
LOC: ER 09:57 → ERHOLD 12:32 → MEDS 16:07
PROVIDERS: Emergency Medicine; ADMIT Family Medicine
DX: A41.9 Sepsis, unspecified organism (principal); J69.0 Pneumonitis due to inhalation of food and vomit; J96.01 Acute respiratory failure with hypoxia; F41.9 Anxiety disorder, unspecified; F32.A Depression, unspecified; Z88.8 Allergy status to other drugs, medicaments and biological substances; Z88.5 Allergy status to narcotic agent; Z88.1 Allergy status to other antibiotic agents; Z91.048 Other nonmedicinal substance allergy status; G89.29 Other chronic pain; E03.9 Hypothyroidism, unspecified; Z87.820 Personal history of traumatic brain injury; Z93.1 Gastrostomy status
CPT/HCPCS: 0241U; 36415; 71046; 80053; 80069; 83605; 83735; 83880; 84100; 85025; 87040; 93005; 93010; 97110; 97162; 97530; 99285-25; A9270; C1751; J0456; J0696; J1650; J1956; J2270; J3010; J7050; J7120

== ENCOUNTER 2025-01-27 06:17 | Emergency (ER) | payer MEDICARE, OTHER ==
[~2025-01-27] VITALS: Ht 147.3 cm; Wt 68.0 kg
[~2025-01-27 06:17] MED LIST changes: +HYDHCL25 PO; +LEVO750 PO
[2025-01-27 06:46] LABS: BASOPHILS PERCENT AUTO 0 % (0-2); EOSINOPHILS ABSOLUTE AUTO 0.05 K/mm3 (0.00-0.68); EOSINOPHILS PERCENT AUTO 1 % (0-6); Hematocrit 34.5 % (33.0-51.0); Hemoglobin 11.4 g/dL (11.5-16.0); IMMATURE GRAN PERCENT AUTO 0 % (0-1); LYMPHOCYTES ABSOLUTE AUTO 1.37 K/mm3 (0.84-5.20); LYMPHOCYTES PERCENT AUTO 40 % (21-46); MONOCYTES ABSOLUTE AUTO 0.26 K/mm3 (0.16-1.47); MONOCYTES PERCENT AUTO 8 % (4-13); Mean Corpuscular HGB 31.8 pg (26.0-34.0); Mean Corpuscular Volume 96 fL (80-100); Mean Platelet Volume 12.1 fL (9.1-12.4); NEUTROPHILS ABSOLUTE AUTO 1.79 K/mm3 (1.96-9.15); NEUTROPHILS PERCENT AUTO 52 % (41-73); Platelet Count 156 K/mm3 (150-400); RDW Standard Deviation 51.5 fL (35.1-46.3); Red Blood Cell Count 3.59 M/mm3 (3.80-5.20); White Blood Cell Count 3.47 K/mm3 (4.00-11.30)
[2025-01-27 07:05] LABS: Albumin, Blood 3.2 g/dL (3.4-5.0); Albumin/Globulin Ratio 0.6 (0.8-1.8); Bilirubin, Total 0.4 mg/dL (0.1-1.0); Bun/Creatinine Ratio 27.6 (12.0-20.0); Calcium, Blood 9.4 mg/dL (8.5-10.1); Creatinine, Blood 0.72 mg/dL (0.40-1.00); Potassium, Blood 4.3 mmol/L (3.5-5.5); Total Protein, Blood 8.2 g/dL (6.4-8.2)
[2025-01-27] MEDS ORDERED: NS 1,000 ML IV SCH (07:35)
[2025-01-27 10:23] LABS: Source, Urine Clean Catch
[2025-01-27 10:28] LABS: Bilirubin, Urine Neg (Neg); Blood, Urine Neg (Neg); Glucose Qualitative, Urine Neg (Neg); Ketones, Urine Neg (Neg); Leukocyte Esterase, Urine Neg (Neg); Nitrite, Urine Neg (Neg); Protein, Urine Neg (Neg); Urobilinogen, Urine NORM (Normal)
[2025-01-27 10:29] LABS: Color, Urine Yellow (P-Yellow)
[2025-01-27 10:33] LABS: International Normalized Ratio 0.96; Prothrombin Time Results 10.3 Sec (9.7-11.5)
[2025-01-27 10:34] LABS: Appearance, Urine Clear (Clear)
[2025-01-27 10:39] LABS: U Amphetamine Screen Not Detected; U Barbituate Screen Not Detected; U Benzodiazapine Screen Not Detected; U Buprenorphine Screen Not Detected; U Cannabinoids Screen Not Detected; U Cocaine Screen Not Detected; U Methadone Screen Not Detected; U Methamphetamine Screen Not Detected; U Opiates Screen Not Detected; U Oxycodone Screen DETECTED; U Phencyclidine Screen Not Detected
[2025-01-27 15:09] VITALS: BP 117/75
== END 2025-01-27 15:25 | disposition home or self-care (01) ==
LOC: ER 06:17
PROVIDERS: Student in an Organized Health Care Education/Training Program
DX: R41.82 Altered mental status, unspecified (principal); R32 Unspecified urinary incontinence; R09.02 Hypoxemia; R06.02 Shortness of breath; E03.9 Hypothyroidism, unspecified; I10 Essential (primary) hypertension; I48.0 Paroxysmal atrial fibrillation; G40.909 Epilepsy, unspecified, not intractable, without status epilepticus; Z91.51 Personal history of suicidal behavior; Z87.820 Personal history of traumatic brain injury; Z87.891 Personal history of nicotine dependence; Z88.1 Allergy status to other antibiotic agents; Z88.6 Allergy status to analgesic agent; Z88.8 Allergy status to other drugs, medicaments and biological substances; Z88.0 Allergy status to penicillin; Z88.5 Allergy status to narcotic agent; Z79.890 Hormone replacement therapy; Z79.899 Other long term (current) drug therapy
CPT/HCPCS: 70450; 71045; 74177; 80053; 81003; 82140; 83690; 84484; 85025; 85610; 93005; 93010; 96365-59; 99284-25; A6590; J7030; Q9967

== ENCOUNTER → 2025-02-21 | Outpatient (CLI) | payer MEDICARE, OTHER ==
[~2025-02-21] MED LIST changes: +BENADRYL25 M1 PO; +PRED20 PO
== END ==
LOC: LAB 11:32 → LAB SHORT 11:32
DX: N39.0 Urinary tract infection, site not specified (principal)
CPT/HCPCS: 87077; 87086; 87186